=== PATIENT | female | born 1975 | race Caucasian/White ===

== ENCOUNTER 2019-04-27 08:06 | Emergency (ER) | payer OTHER, SELFPAY ==
--- NOTE | 2019-04-27 09:01 | ER ---
Nurse's Notes [facility] [place] Name: Mitali Law Age: 43 yrs Sex: Female : 1975 Arrival Date: 04/27/2019 Time: 08:10 Bed 17 Private MD: Diagnosis: Acute pharyngitis Presentation: 04/27 08:21 Presenting complaint: Patient states: throat hurts, can't swallow, X 3 days. Transition iw of care: patient was not received from another setting of care. Onset of symptoms was April 24, 2019. Risk Assessment: Do you want to hurt yourself or someone else? Patient reports no desire to harm self or others. Initial Sepsis Screen: Does the patient meet any 2 criteria? No. Patient's initial sepsis screen is negative. Does the patient have a suspected source of infection? No. Patient's initial sepsis screen is negative. Care prior to arrival: None. 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 - Social history:: Smoking status: Patient/guardian denies using tobacco. - Ebola Screening: : Patient negative for fever greater than or equal to 101.5 degrees Fahrenheit, and additional compatible Ebola Virus Disease symptoms Patient denies exposure to infectious person Patient denies travel to an Ebola-affected area in the 21 days before illness onset No symptoms or risks identified at this time. Screenin:40 Abuse screen: Denies threats or abuse. Nutritional screening: No deficits noted. em Tuberculosis screening: No symptoms or risk factors identified. Fall Risk None identified. Assessment: 08:41 General: Appears in no apparent distress. comfortable, Behavior is calm, cooperative. em Pain: Complains of pain in left aspect of posterior pharynx and right aspect of posterior pharynx Pain currently is 8 out of 10 on a pain scale. Pain began 2-3 days ago. Neuro: Level of Consciousness is awake, alert, obeys commands, Oriented to person, place, time, situation, Appropriate for age. Cardiovascular: Capillary refill < 3 seconds Patient's skin is warm and dry. Respiratory: Airway is patent Respiratory effort is even, unlabored, Respiratory pattern is regular, symmetrical, Breath sounds are clear bilaterally. GI: Patient currently denies nausea, vomiting. EENT: Throat is reddened has enlarged tonsils bilaterally Reports difficulty swallowing pain when swallowing. Derm: Skin is intact, is healthy with good turgor, Skin is pink, warm \T\ dry. Musculoskeletal: Capillary refill < 3 seconds, Range of motion: intact in all extremities. Vital Signs: 08:22 BP 119 / 64; Pulse 77; Resp 16 S; Temp 98.0; Pulse Ox 100% on R/A; Weight 61.23 kg; iw Height 5 ft. 3 in. (160.02 cm); Pain 8/10; 08:22 Body Mass Index 23.91 (61.23 kg, 160.02 cm) iw ED Course: 08:10 Patient arrived in ED. as 08:15 Cain Marte PA is PHCP. [facility] 08:15 Alfie Orozco MD is Attending Physician. [facility] 08:22 Triage completed. iw 08:22 Arm band placed on. iw 08:27 Haider Davis LVN is Primary Nurse. em 08:40 Patient has correct armband on for positive identification. Bed in low position. Call em light in reach. 09:16 No provider procedures requiring assistance completed. Patient did not have IV access em during this emergency room visit. Administered Medications: 09:11 Drug: Decadron 10 mg Route: IM; Site: right deltoid; em 09:16 Follow up: Response: Medication administered at discharge. em Outcome: 09:00 Discharge ordered by . [facility] 09:16 Discharged to home ambulatory. em 09:16 Condition: good 09:16 Discharge instructions given to patient, Instructed on discharge instructions, follow up and referral plans. medication usage, Demonstrated understanding of instructions, follow-up care, medications, Prescriptions given X 1. 09:17 Patient left the ED. em Signatures: Cain Marte PA PA jmm Munoz, Edgar, RN RN em Kira Puri Irene, RN RN
--- NOTE | 2019-04-27 09:02 | EDPHYS ---
Physician Documentation [facility] Name: Mitali Law Age: 43 yrs Sex: Female : 1975 Arrival Date: 04/27/2019 Time: 08:10 Bed 17 Private MD: ED Physician Alfei Orozco HPI: 04/27 08:48 This 43 yrs old Female presents to ER via Ambulatory with complaints of Sore jmm Throat. 08:48 The patient presents with sore throat. Onset: The symptoms/episode began/occurred jmm gradually, 3 day(s) ago. Modifying factors: The symptoms are alleviated by nothing, the symptoms are aggravated by nothing. Associated signs and symptoms: Pertinent negatives cough, earache. This is a 43 year old female that presents to the ED with complaints of of sore throat beginning 3 days ago. Denies cough. Patient complains of a swelling sensation to the throat which worsened this morning. . 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 - Social history:: Smoking status: Patient/guardian denies using tobacco. - Ebola Screening: : Patient negative for fever greater than or equal to 101.5 degrees Fahrenheit, and additional compatible Ebola Virus Disease symptoms Patient denies exposure to infectious person Patient denies travel to an Ebola-affected area in the 21 days before illness onset No symptoms or risks identified at this time. ROS: 08:48 Constitutional: Negative for fever, chills, and weight loss, Cardiovascular: Negative jmm for chest pain, palpitations, and edema, Respiratory: Negative for shortness of breath, cough, wheezing, and pleuritic chest pain. 08:48 ENT: Positive for sore throat. 08:48 Neuro: Negative for headache. 08:48 All other systems are negative. Exam: 08:48 Constitutional: This is a well developed, well nourished patient who is awake, alert, jmm and in no acute distress. Head/Face: atraumatic. Eyes: EOMI, no conjunctival erythema appreciated ENT: Moist Mucus Membranes Neck: Trachea midline, Supple Chest/axilla: Normal chest wall appearance and motion. Cardiovascular: Regular rate and rhythm. No edema appreciated Respiratory: Normal respirations, no respiratory distress appreciated Abdomen/GI: Non distended, soft Back: Normal ROM Skin: General appearance color normal MS/ Extremity: Moves all extremities, no obvious deformities appreciated, no edema noted to the lower extremities Neuro: Awake and alert, normal gait Psych: Behavior is normal, Mood is normal, Patient is cooperative and pleasant 08:48 ENT: TM's: erythema, that is mild, on the right, Posterior pharynx: Airway: normal, Uvula: midline, erythema, that is moderate, exudate, is not appreciated. Vital Signs: 08:22 BP 119 / 64; Pulse 77; Resp 16 S; Temp 98.0; Pulse Ox 100% on R/A; Weight 61.23 kg; iw Height 5 ft. 3 in. (160.02 cm); Pain 8/10; 08:22 Body Mass Index 23.91 (61.23 kg, 160.02 cm) iw MDM: 08:46 Patient medically screened. [facility] 08:59 Data reviewed: vital signs, nurses notes. Counseling: I had a detailed discussion with [facility] the patient and/or guardian regarding: the historical points, exam findings, and any diagnostic results supporting the discharge/admit diagnosis, the need for outpatient follow up, to return to the emergency department if symptoms worsen or persist or if there are any questions or concerns that arise at home. ED course: Patient is alert and non toxic in appearance in the ED. No signs of BACKER UP on PE. Patient advised to return to the ED if symptoms worsen. Patient understood and agrees with the plan of care. . 04/27 08:47 Order name: Strep; Complete Time: 09:09 [facility] 04/27 09:14 Order name: Throat Culture EDMS Administered Medications: 09:11 Drug: Decadron 10 mg Route: IM; Site: right deltoid; em 09:16 Follow up: Response: Medication administered at discharge. em Disposition: 10:46 Co-signature as Attending Physician, Alfie Orozco MD I agree with the assessment and kdr plan of care. Disposition: 04/27/19 09:00 Discharged to Home. Impression: Acute pharyngitis. - Condition is Stable. - Discharge Instructions: Pharyngitis. - Prescriptions for Amoxicillin 875 mg Oral Tablet - take 1 tablet by ORAL route every 12 hours for 10 days; 20 tablet. - Medication Reconciliation Form, Thank You Letter, Antibiotic Education, Prescription Opioid Use form. - Follow up: Private Physician; When: 2 - 3 days; Reason: Recheck today's complaints, Continuance of care, Re-evaluation by your physician. Signatures: Dispatcher [employer] EDAlfie Huizar MD MD kdr Mickail, Joel, PA PA jmm Munoz, Edgar, RN RN em Holly Guardado RN RN iw Corrections: (The following items were deleted from the chart) 09:17 09:00 04/27/2019 09:00 Discharged to Home. Impression: Acute pharyngitis. Condition is em Stable. Forms are Medication Reconciliation Form, Thank You Letter, Antibiotic Education, Prescription Opioid Use. Follow up: Private Physician; When: 2 - 3 days; Reason: Recheck today's complaints, Continuance of care, Re-evaluation by your physician. gary
[2019-04-27] MEDS ORDERED: dexAMETHasone 10 MG/ML VIAL ONE (09:04)
[2019-04-27 09:25] VITALS: BP 119/64; TEMP 98; O2SAT 100
== END 2019-04-27 09:17 | disposition home or self-care (01) ==
LOC: ER 08:06
DX: J02.9 Acute pharyngitis, unspecified (principal); Z88.2 Allergy status to sulfonamides
CPT/HCPCS: 87070; 87081; 96372; 99283; J1100

== ENCOUNTER 2019-08-26 07:17 | Emergency (ER) | payer OTHER ==
--- NOTE | 2019-08-26 08:31 | ER ---
Nurse's Notes [facility] [place] Name: Mitali Law Age: 43 yrs Sex: Female : 1975 Arrival Date: 08/26/2019 Time: 07:20 Bed 5 Private MD: Diagnosis: Acute pharyngitis due to other specified organisms Presentation: 08/25 07:39 Chief complaint: Patient states: sore throat X 1 week, vomited X 2 nights ago, no iw fever, mild cough. Coronavirus screen: Proceed with normal triage. Patient denies a cough. Patient denies shortness of breath or difficulty breathing. Patient denies measured and/or subjective temperature greater than 100.4F prior to today's visit. Patient denies travel on a cruise ship or to a country the [facility] currently lists as an affected area. Patient denies contact with known and/or suspected case of COVID-19. Ebola Screen: Patient negative for fever greater than or equal to 101.5 degrees Fahrenheit, and additional compatible Ebola Virus Disease symptoms Patient denies exposure to infectious person. Patient denies travel to an Ebola-affected area in the 21 days before illness onset. No symptoms or risks identified at this time. Initial Sepsis Screen: Does the patient meet any 2 criteria? No. Patient's initial sepsis screen is negative. Does the patient have a suspected source of infection? No. Patient's initial sepsis screen is negative. Risk Assessment: Do you want to hurt yourself or someone else? Patient reports no desire to harm self or others. Onset of symptoms was August 20, 2019. 07:39 Method Of Arrival: Ambulatory iw 07:39 Acuity: JAIR 4 iw Triage Assessment: 07:41 General: Appears in no apparent distress. comfortable, Behavior is cooperative, bp appropriate for age, anxious. Pain: Complains of pain in THROAT. EENT: No deficits noted. Neuro: No deficits noted. Cardiovascular: No deficits noted. Respiratory: No deficits noted. GI: Reports vomiting. : No signs and/or symptoms were reported regarding the genitourinary system. Derm: No deficits noted. Musculoskeletal: No deficits noted. Historical: - Allergies: 07:41 Sulfa (Sulfonamide Antibiotics) (Hives); iw - Home Meds: 07:41 Methadone Oral [Active]; iw - PMHx: 07:41 HPV; iw - PSHx: 07:41 ; iw - Immunization history:: Adult Immunizations not up to date. - Social history:: Smoking status: Patient denies any tobacco usage or history of. Screenin:38 Abuse screen: Denies threats or abuse. Denies injuries from another. Nutritional bp screening: No deficits noted. Tuberculosis screening: No symptoms or risk factors identified. Fall Risk None identified. Assessment: 07:38 General: SEE TRIAGE NOTE. Pain: Complains of pain in THROAT. Respiratory: Airway is bp patent Respiratory effort is even, unlabored, Breath sounds are clear bilaterally. EENT: Throat is clear. 08:37 Reassessment: PT D/C HOME AMBULATORY, DX WITH ACUTE PHARYNGITIS. bp Vital Signs: 07:39 BP 130 / 94; Pulse 90; Resp 16; Temp 97.9; Pulse Ox 100% on R/A; Weight 65.77 kg; iw Height 5 ft. 3 in. (160.02 cm); 08:37 BP 109 / 77; Pulse 59; Resp 17; Temp 98; Pulse Ox 98% ; bp 07:39 Body Mass Index 25.69 (65.77 kg, 160.02 cm) ED Course: 07:20 Patient arrived in ED. ag5 07:28 Nicholas Ceballos, RN is Primary Nurse. bp 07:29 Gonzalo Gonsales PA is PHCP. jr8 07:29 Alfie Orozco MD is Attending Physician. jr8 07:38 Patient has correct armband on for positive identification. Bed in low position. Call bp light in reach. Side rails up X2. 07:41 Triage completed. iw 08:38 No provider procedures requiring assistance completed. Patient did not have IV access bp during this emergency room visit. Administered Medications: No medications were administered Outcome: 08:30 Discharge ordered by . jr8 08:38 Discharged to home ambulatory. bp 08:38 Condition: stable 08:38 Discharge instructions given to patient, Instructed on discharge instructions, follow up and referral plans. medication usage, Demonstrated understanding of instructions, follow-up care, medications, Prescriptions given X 2. 08:39 Patient left the ED. bp Signatures: Holly Guardado RN RN Gonzalo Gonsales PA PA jr8 Nicholas Ceballos RN RN bp Uday Christine ag5
--- NOTE | 2019-08-26 08:31 | EDPHYS ---
Physician Documentation [facility] Name: Mitali Law Age: 43 yrs Sex: Female : 1975 Arrival Date: 08/26/2019 Time: 07:20 Bed 5 Private MD: ED Physician Alfie Orozco HPI: 08/25 08:04 This 43 yrs old Female presents to ER via Ambulatory with complaints of Sore jr8 Throat, Vomiting. 08:04 The patient presents with sore throat. The patient describes throat pain as constant. jr8 Onset: The symptoms/episode began/occurred acutely, yesterday. Severity of symptoms: At their worst the symptoms were moderate, in the emergency department the symptoms are unchanged. Modifying factors: The symptoms are alleviated by nothing, the symptoms are aggravated by nothing, Patient's oral intake status: unable to tolerate foods. Associated signs and symptoms: Pertinent positives: nausea, vomiting. The patient has not experienced similar symptoms in the past. The patient has not recently seen a physician. Historical: - Allergies: 07:41 Sulfa (Sulfonamide Antibiotics) (Hives); iw - Home Meds: 07:41 Methadone Oral [Active]; iw - PMHx: 07:41 HPV; iw - PSHx: 07:41 ; iw - Immunization history:: Adult Immunizations not up to date. - Social history:: Smoking status: Patient denies any tobacco usage or history of. ROS: 08:04 Eyes: Negative for injury, pain, redness, and discharge, Neck: Negative for injury, jr8 pain, and swelling, Cardiovascular: Negative for chest pain, palpitations, and edema, Respiratory: Negative for shortness of breath, cough, wheezing, and pleuritic chest pain, Back: Negative for injury and pain, MS/Extremity: Negative for injury and deformity, Skin: Negative for injury, rash, and discoloration, Neuro: Negative for headache, weakness, numbness, tingling, and seizure. 08:04 ENT: Positive for sore throat. 08:04 Abdomen/GI: Positive for nausea and vomiting, Negative for abdominal pain, diarrhea, constipation, abdominal cramps, abdominal distension. Exam: 08:04 Eyes: Pupils equal round and reactive to light, extra-ocular motions intact. Lids and jr8 lashes normal. Conjunctiva and sclera are non-icteric and not injected. Cornea within normal limits. Periorbital areas with no swelling, redness, or edema. ENT: Nares patent. No nasal discharge, no septal abnormalities noted. Tympanic membranes are normal and external auditory canals are clear. Oropharynx with redness. No swelling, or masses, exudates, or evidence of obstruction, uvula midline. Mucous membranes moist. Neck: Trachea midline, no thyromegaly or masses palpated, and no cervical lymphadenopathy. Supple, full range of motion without nuchal rigidity, or vertebral point tenderness. No Meningismus. Cardiovascular: Regular rate and rhythm with a normal S1 and S2. No gallops, murmurs, or rubs. Normal PMI, no JVD. No pulse deficits. Respiratory: Lungs have equal breath sounds bilaterally, clear to auscultation and percussion. No rales, rhonchi or wheezes noted. No increased work of breathing, no retractions or nasal flaring. Abdomen/GI: Soft, non-tender, with normal bowel sounds. No distension or tympany. No guarding or rebound. No evidence of tenderness throughout. Back: No spinal tenderness. No costovertebral tenderness. Full range of motion. Skin: Warm, dry with normal turgor. Normal color with no rashes, no lesions, and no evidence of cellulitis. MS/ Extremity: Pulses equal, no cyanosis. Neurovascular intact. Full, normal range of motion. Neuro: Awake and alert, GCS 15, oriented to person, place, time, and situation. Cranial nerves II-XII grossly intact. Motor strength 5/5 in all extremities. Sensory grossly intact. Cerebellar exam normal. Normal gait. Vital Signs: 07:39 BP 130 / 94; Pulse 90; Resp 16; Temp 97.9; Pulse Ox 100% on R/A; Weight 65.77 kg; iw Height 5 ft. 3 in. (160.02 cm); 08:37 BP 109 / 77; Pulse 59; Resp 17; Temp 98; Pulse Ox 98% ; bp 07:39 Body Mass Index 25.69 (65.77 kg, 160.02 cm) iw MDM: 07:40 Patient medically screened. [facility] 08:04 Data reviewed: vital signs, nurses notes, lab test result(s), and as a result, I will jr8 discharge patient. Data interpreted: Pulse oximetry: on room air is 100 %. Interpretation: normal. Counseling: I had a detailed discussion with the patient and/or guardian regarding: the historical points, exam findings, and any diagnostic results supporting the discharge/admit diagnosis, lab results, the need for outpatient follow up, a family practitioner, to return to the emergency department if symptoms worsen or persist or if there are any questions or concerns that arise at home. 08/25 07:48 Order name: Strep; Complete Time: 08:30 jr8 Administered Medications: No medications were administered Disposition: 11:14 Co-signature as Attending Physician, Alfie Orozco MD I agree with the assessment and kdr plan of care. Disposition: 08/26/19 08:30 Discharged to Home. Impression: Acute pharyngitis due to other specified organisms. - Condition is Stable. - Discharge Instructions: Pharyngitis. - Prescriptions for Amoxicillin 875 mg Oral Tablet - take 1 tablet by ORAL route every 12 hours for 10 days; 20 tablet. Zofran 4 mg Oral Tablet - take 1 tablet by ORAL route every 12 hours As needed; 20 tablet. - Medication Reconciliation Form, Thank You Letter, Antibiotic Education, Prescription Opioid Use form. - Follow up: Private Physician; When: As needed; Reason: Recheck today's complaints, Continuance of care, Re-evaluation by your physician. - Problem is new. - Symptoms have improved. Signatures: Dispatcher [employer] EDMS Alfie Orozco MD MD [facility] Holly Guardado RN RN iw Gonzalo Gonsales PA PA jr8 Nicholas Ceballos RN RN bp Corrections: (The following items were deleted from the chart) 08:39 08:30 08/26/2019 08:30 Discharged to Home. Impression: Acute pharyngitis due to other bp specified organisms. Condition is Stable. Forms are Medication Reconciliation Form, Thank You Letter, Antibiotic Education, Prescription Opioid Use. Follow up: Private Physician; When: As needed; Reason: Recheck today's complaints, Continuance of care, Re-evaluation by your physician. Problem is new. Symptoms have improved. jr8
== END 2019-08-26 08:39 | disposition home or self-care (01) ==
LOC: ER 07:17
DX: J02.8 Acute pharyngitis due to other specified organisms (principal); Z88.2 Allergy status to sulfonamides
CPT/HCPCS: 87070; 87081; 99282

== ENCOUNTER 2019-09-22 08:23 | Emergency (ER) | payer OTHER ==
[2019-09-22] MEDS ORDERED: KETOROLAC 30 MG/ML INJ ONE (09:00)
--- NOTE | 2019-09-22 09:32 | RAD REPORT ---
EXAM DESCRIPTION: RAD - Shoulder Left 2 View - 09/22/2019 9:23 am CLINICAL HISTORY: Left shoulder pain FINDINGS: No fracture or dislocation is seen. No bone or joint abnormality noted
--- NOTE | 2019-09-22 09:51 | ER ---
Nurse's Notes [facility] Name: Mitali Law Age: 43 yrs Sex: Female : 1975 Arrival Date: 09/22/2019 Time: 08:25 Bed 5 Private MD: Diagnosis: Pain in left shoulder Presentation: 09/21 08:33 Chief complaint: Patient states: left shoulder pain x 2 days ago. Pt states "I thought aa5 I just slept on it wrong but it's hurting too bad". Pt states "I took 2 tramadol this morning and it's not helping". Pt also reports she takes methadone but has not taking it this morning. 08:33 Coronavirus screen: Proceed with normal triage. Patient denies a cough. Patient denies aa5 shortness of breath or difficulty breathing. Patient denies measured and/or subjective temperature greater than 100.4F prior to today's visit. Patient denies travel on a cruise ship or to a country the [facility] currently lists as an affected area. Patient denies contact with known and/or suspected case of COVID-19. Ebola Screen: Patient negative for fever greater than or equal to 101.5 degrees Fahrenheit, and additional compatible Ebola Virus Disease symptoms. Initial Sepsis Screen: Does the patient meet any 2 criteria? No. Patient's initial sepsis screen is negative. Does the patient have a suspected source of infection? No. Patient's initial sepsis screen is negative. Risk Assessment: Do you want to hurt yourself or someone else? Patient reports no desire to harm self or others. Onset of symptoms was 2019. 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 - Social history:: Smoking status: Patient denies any tobacco usage or history of. Screenin:58 Abuse screen: Denies threats or abuse. Denies injuries from another. Nutritional jl7 screening: No deficits noted. Tuberculosis screening: No symptoms or risk factors identified. Fall Risk None identified. Assessment: 08:58 General: Appears in no apparent distress. uncomfortable, Behavior is calm, cooperative, jl7 appropriate for age. Pain: Complains of pain in anterior aspect of left shoulder Pain does not radiate. Pain currently is 7 out of 10 on a pain scale. at worst was 10 out of 10 on a pain scale. Pain began 2-3 days ago. Is continuous, episodic. Neuro: Level of Consciousness is awake, alert, obeys commands, Oriented to person, place, time, situation. Cardiovascular: Patient's skin is warm and dry. Respiratory: Airway is patent Respiratory effort is even, unlabored, Respiratory pattern is regular, symmetrical. Derm: Skin is pink, warm \\T\\ dry. Musculoskeletal: Range of motion: limited in left shoulder. 10:00 Reassessment: Patient appears in no apparent distress at this time. Patient and/or jl7 family updated on plan of care and expected duration. Pain level reassessed. Patient is alert, oriented x 3, equal unlabored respirations, skin warm/dry/pink. reports decreased pain. Vital Signs: 08:33 BP 130 / 85; Pulse 88; Resp 18; Temp 97.8(TE); Pulse Ox 100% on R/A; Weight 63.5 kg aa5 (R); Height 5 ft. 3 in. (160.02 cm) (R); Pain 7/10; 09:43 BP 107 / 78; Pulse 87; Resp 17; Pulse Ox 97% on R/A; tw2 08:33 Body Mass Index 24.80 (63.50 kg, 160.02 cm) aa5 ED Course: 08:25 Patient arrived in ED. ag5 08:33 Sophia Hudson, GIORGIO is Primary Nurse. jl7 08:33 Arm band placed on. aa5 08:37 Cain Marte PA is PHCP. [facility] 08:38 Alfie Orozco MD is Attending Physician. jm 08:45 Triage completed. aa5 08:58 Patient has correct armband on for positive identification. Placed in gown. Bed in low jl7 position. Call light in reach. Side rails up X 1. Pulse ox on. NIBP on. 09:23 Shoulder Left (2 View) XRAY In Process Unspecified. EDMS 09:50 Jose Soto MD is Referral Physician. [facility] 10:00 No provider procedures requiring assistance completed. Patient did not have IV access jl7 during this emergency room visit. Administered Medications: 08:58 Drug: Ketorolac 30 mg Route: IM; Site: right deltoid; jl7 09:25 Follow up: Response: No adverse reaction; Pain is decreased jl7 Outcome: 09:50 Discharge ordered by . jm 10:23 Discharged to home ambulatory. jl7 10:23 Condition: stable 10:23 Discharge instructions given to patient, Instructed on discharge instructions, follow up and referral plans. medication usage, Demonstrated understanding of instructions, follow-up care, medications, Prescriptions given X 2. 10:24 Patient left the ED. jl7 Signatures: Dispatcher [employer] EDMS Cain Marte PA PA jmm Calderon, Audri, RN RN aa5 Theodora Blandon RN RN tw2 Sophia Hudson RN RN jl7 Uday Christine [facility]
--- NOTE | 2019-09-22 09:51 | EDPHYS ---
Physician Documentation [facility] Name: Mitali Law Age: 43 yrs Sex: Female : 1975 Arrival Date: 09/22/2019 Time: 08:25 Bed 5 Private MD: ED Physician Alfie Orozco HPI: 09/21 08:40 This 43 yrs old Female presents to ER via Ambulatory with complaints of jmm Shoulder Pain. 08:40 The patient or guardian complains of pain. Onset: The symptoms/episode began/occurred jmm gradually. 09:33 Onset: The symptoms/episode began/occurred 2 day(s) ago. jmm 09:33 Associated signs and symptoms: Pertinent negatives: chest pain, shortness of breath. jmm This is a 43 year old female that presents to the ED with complaints of left shoulder pain beginning 2 days ago. Patient states pain was upon awakening. . 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 - Social history:: Smoking status: Patient denies any tobacco usage or history of. ROS: 09:33 Constitutional: Negative for fever, chills, and weight loss, Cardiovascular: Negative jmm for chest pain, palpitations, and edema, Respiratory: Negative for shortness of breath, cough, wheezing, and pleuritic chest pain, Abdomen/GI: Negative for abdominal pain, nausea, vomiting, diarrhea, and constipation. 09:33 MS/extremity: Positive for pain. 09:33 All other systems are negative. Exam: 09:33 Constitutional: This is a well developed, well nourished patient who is awake, alert, jmm and in no acute distress. Head/Face: atraumatic. Eyes: EOMI, no conjunctival erythema appreciated ENT: Moist Mucus Membranes Neck: Trachea midline, Supple Chest/axilla: Normal chest wall appearance and motion. Cardiovascular: Regular rate and rhythm. No edema appreciated Respiratory: Normal respirations, no respiratory distress appreciated Abdomen/GI: Non distended, soft Back: Normal ROM Skin: General appearance color normal 09:33 Musculoskeletal/extremity: ant shoulder pain on palpation, painful abduction, full risk control analyst strength, compartments are soft, NVI. 09:33 Skin: Appearance: Color: normal in color. 09:33 Neuro: Orientation: is normal, Mentation: is normal, Memory: is normal. 09:33 Psych: Behavior/mood is pleasant, cooperative. Vital Signs: 08:33 BP 130 / 85; Pulse 88; Resp 18; Temp 97.8(TE); Pulse Ox 100% on R/A; Weight 63.5 kg aa5 (R); Height 5 ft. 3 in. (160.02 cm) (R); Pain 7/10; 09:43 BP 107 / 78; Pulse 87; Resp 17; Pulse Ox 97% on R/A; tw2 08:33 Body Mass Index 24.80 (63.50 kg, 160.02 cm) aa5 MDM: 08:40 Patient medically screened. [facility] 09:49 Data reviewed: vital signs, nurses notes. Counseling: I had a detailed discussion with gary the patient and/or guardian regarding: the historical points, exam findings, and any diagnostic results supporting the discharge/admit diagnosis, radiology results, the need for outpatient follow up, to return to the emergency department if symptoms worsen or persist or if there are any questions or concerns that arise at home. ED course: Patient advised to follow up with ortho for reevaluation. patient otherwise given strict return precautions. patient understood and agrees with the plan of care. . 09/21 08:47 Order name: Shoulder Left (2 View) XRAY; Complete Time: 09:39 [facility] Administered Medications: 08:58 Drug: Ketorolac 30 mg Route: IM; Site: right deltoid; jl7 09:25 Follow up: Response: No adverse reaction; Pain is decreased jl7 Disposition: 13:30 Co-signature as Attending Physician, Alfie Orozco MD I agree with the assessment and kdr plan of care. Disposition: 09/22/19 09:50 Discharged to Home. Impression: Pain in left shoulder. - Condition is Stable. - Discharge Instructions: Shoulder Pain. - Prescriptions for Medrol (Raymundo) 4 mg Oral Tablets, Dose Pack - take 1 tablet by ORAL route as directed - follow package instructions; 1 packet. orphenadrine citrate 100 mg Oral Tablet Sustained Release - take 1 tablet by ORAL route 2 times per day As needed; 20 tablet. - Medication Reconciliation Form, Thank You Letter, Antibiotic Education, Prescription Opioid Use form. - Follow up: Jose Soto MD; When: 2 - 3 days; Reason: Recheck today's complaints, Continuance of care, Re-evaluation by your physician. Signatures: Dispatcher [employer] EDMS Alfie Orozco MD MD kdr Mickail, Joel, PA PA jmm Calderon, Audri, RN RN aa5 Sophia Hudson RN RN jl7 Corrections: (The following items were deleted from the chart) 10:24 09:50 09/22/2019 09:50 Discharged to Home. Impression: Pain in left shoulder. Condition jl7 is Stable. Forms are Medication Reconciliation Form, Thank You Letter, Antibiotic Education, Prescription Opioid Use. Follow up: Dr. Jose Soto; When: 2 - 3 days; Reason: Recheck today's complaints, Continuance of care, Re-evaluation by your physician. gary
[2019-09-22 10:31] VITALS: BP 107/78; TEMP 97.8; O2SAT 97
== END 2019-09-22 10:24 | disposition home or self-care (01) ==
LOC: ER 08:23
DX: M25.512 Pain in left shoulder (principal); Z88.2 Allergy status to sulfonamides
CPT/HCPCS: 96372; 99284

== ENCOUNTER 2022-05-30 13:18 | Emergency (ER) | payer OTHER, SELFPAY ==
--- OUTSIDE RECORDS SUMMARY | 2022-05-30 13:22 | XMS REPORT | Continuity of Care Document ---
:1975 Author Organization [facility] t Address [address] [place] [address] Care Team Providers Name Role Phone MARCELINA WILLSON Primary Care Physician Unavailable MARCELINA WILLSON Attending Clinician Unavailable QUETA BLAIR Attending Clinician Unavailable Lab, Ang-Rmchp Attending Clinician Unavailable Johnnie PEDIATRIC ASSISTANTQueta Attending Clinician Anamika [facility] AL[facility] Attending Clinician [phone] Doctor Unassigned, [place] Attending Clinician Unavailable Pgy3 Attending Clinician Unavailable Hortencia Ludwig MD Attending Clinician HORTENCIA LUDWIG Attending Clinician Unavailable Elodia Aguillon RN Attending Clinician Unavailable TODD SERRATO Attending Clinician Unavailable Only, Ang Db Test Attending Clinician Unavailable Todd Serrato MD Attending Clinician MERCEDEZ LIU Attending Clinician Unavailable MARCELINA WILLSON Admitting Clinician Unavailable Payers Payer Name Policy Type Policy Number Effective Date Expiration Date Corbin lopez [id number] 2016 00:00:00 [facility] [id number] 2021 CHOICE 00:00:00 Problems Condition Condition Condition Status Onset Resolution Last Treating Co mments Source Name Details Category Date Date Treatment Clinician Date Heavy Heavy Disease Active Overview: Univer s menses menses 1-12 Formattin ity of 00:00: g of this [place] 00 note Medical might be Branch different from the original. Records received, see scanned records Pre-op dx- excessive and frequent menstruat ion with irregular cyclePost -op dx- not statedDia gnosis: Prolifera tive endometri umNo evidence of hyperplas ia or malignanc y Elevated Elevated Disease Active Unive rs blood blood 1-12 ity of pressure pressure 00:00: [place] reading reading 00 Medical without without Branch diagnosis diagnosis of of hypertensi hypertensi on on Other Other Disease Active Univers general general 1-13 [place] of counseling [place] and advice and advice 00 Dc dical for for Branch contracept contracept shahla shahla management management Over Over Disease Active Univers weight weight 1-13 ity of 00:00: [place] 00 Medical Branch Vaginal Vaginal Disease Active Univers discharge discharge 1-13 ity of 00:00: [place] 00 Medical Branch Encounter Encounter Disease Active Uni vers for for 6-20 ity of screening screening 00:00: Rojelio moya mammogram mammogram 00 [facility] zachery for breast for breast Br anch cancer cancer Urinary Urinary Disease Active Univers tract tract 6-20 [place] of infection, [place], [place] 00 Medical unspecifie unspecifie Br anch d d Tobacco Tobacco Disease Active Univers use use 6-20 ity of disorder disorder 00:00: [place] 00 Medical Branch Depression Depression Disease Active U nivers , , 6-20 ity of unspecifie unspecifie [place] d [place] 00 Medical depression depression Br anch type type History of History of Disease Active U nivers tubal tubal 6-20 ity of ligation ligation 00:00: [place] 00 Medical Branch Allergies, Adverse Reactions, Alerts Allergy Allergy Status Severity Reaction(s) Onset Inactive Treating Comm ents Source Name Type Date Date Clinician ZIPRASID DRUG Active Hallucinates 2011-04 Un myrna ONE HCL INGREDI 0-03 ity of 00:00: [place] 00 Medical Branch Ziprasid Propensi Active Hallucinatio 2011-04 Univers one Hcl ty to ns 0-03 ity of adverse 00:00: [place] reaction 00 Medical s Branch Sulfa Propensi Active Itching Univers (Sulfona ty to 906 ity of mide adverse 00:00: [place] Antibiot reaction 00 Medica l ics) s Branch SULFA Drug Active ITCHING Univers (SULFONA Class 9-06 ity of MIDE 00:00: [place] ANTIBIOT 00 Medical ICS) Branch Social History Social Habit Start Date Stop Date Quantity Comments Source History of Cigarette Smoker Universi ty of tobacco use [facility] Exposure to 2021-11-24 2021-12-04 Not sure University SARS-CoV-2 00:00:00 15:53:00 [facility] (event) Branch Tobacco use and 2021-12-04 2021-12-04 Smokeless tobacco Un iversity of exposure 00:00:00 00:00:00 non-user [place] [facility] Alcohol intake 2021-12-04 2021-12-04 Current University of 00:00:00 00:00:00 non-drinker of [facility] alcohol (finding) Branch Tobacco Comment 2021-12-04 2021-12-04 smokes 2 x per Unive rsity of 00:00:00 00:00:00 day [place] [facility] Sex [birth year] Universit y of 00:00:00 00:00:00 [place] [facility] Smoking Status Start Date Stop Date Source Ex-smoker 2021-12-04 00:00:00 2021-12-04 00:00:00 Universi ty of [place] [facility] Medications Ordered Filled Start Stop Current Ordering Indication Dosage Frequency Signature Comments Components Source Medication Medication Date Date Medication? Clinician (SIG) Name Name Yes Take by [facility] 105-iron-fo 7-05 mouth. ity of lic ac-dha 13:52: [place] 30 mg iron- 46 Medical 1.4 mg-300 Branch mg Cmpk Yes Take by [facility] 105-iron-fo 7-05 mouth. ity of lic ac-dha 13:52: [place] 30 mg iron- 46 Medical 1.4 mg-300 Branch mg Cmpk Yes Take by [facility] 105-iron-fo 7-05 mouth. ity of lic ac-dha 13:52: [place] 30 mg iron- 46 Medical 1.4 mg-300 Branch mg Cmpk Nitrofurant Yes [id number] 100mg Take 1 Univers oin&Nit. 7-05 capsule by ity o f Macrocryst 00:00[place] (MACROBID[place] 00 (two) Medical 100 mg times Branch capsule daily. Nitrofurant Yes [id number] 100mg Take 1 Univers oin&Nit. 7-05 capsule by ity o f Macrocryst 00:[place]: [place] (MACROBID) 00 (two) Medical 100 mg times Branch capsule daily. Nitrofurant Yes [id number] 100mg Take 1 Univers oin&Nit. 7-05 capsule by ity o f Macrocryst 00:[place] (MACROBID[place] 00 (two) Medical 100 mg times Branch capsule daily. ferrous Yes [id number] 325mg Take 1 Un myrna sulfate 325 2-07 tablet by ity of mg (65 mg 00:00: mouth 2 [place] iron) 00 (two) Medical tablet times Branch daily. norethindro Yes [id number] 1{tbl} Take 1 Univers ne 0.35 mg 2-07 tablet by ity of tablet 00:00: mouth [place] 00 daily. Medical Branch ferrous Yes [id number] 325mg Take 1 Un myrna sulfate 325 2-07 tablet by ity of mg (65 mg 00:00: mouth 2 [place] iron) 00 (two) Medical tablet times Branch daily. norethindro Yes [id number] 1{tbl} Take 1 Univers ne 0.35 mg 2-07 tablet by ity of tablet 00:00: mouth [place] 00 daily. Medical Branch ferrous Yes [id number] 325mg Take 1 Un myrna sulfate 325 2-07 tablet by ity of mg (65 mg 00:00: mouth 2 [place] iron) 00 (two) Medical tablet times Branch daily. norethindro Yes [id number] 1{tbl} Take 1 Univers ne 0.35 mg 2-07 tablet by ity of tablet 00:00: mouth [place] 00 daily. Medical Branch Norethindro Yes [id number] 1{tbl} Take 1 Univers ne 3-09 tablet by ity of Acet-Ethiny 00:00: mouth [place] l Est 00 daily. Medical (LOESTRIN Branch .09/17, ,) 1.5-30 mg-mcg per tablet Norethindro 2020-0 Yes [id number] 1{tbl} Take 1 Univers ne 3-09 tablet by ity of Acet-Ethiny 00:00: mouth [place] l Est 00 daily. Medical (LOESTRIN Branch .09/17, ,) 1.5-30 mg-mcg per tablet Norethindro 2020-0 Yes [id number] 1{tbl} Take 1 Univers ne 3-09 tablet by ity of Acet-Ethiny 00:00: mouth [place] l Est 00 daily. Medical (LOESTRIN Branch ,) 1.5-30 mg-mcg per tablet Immunizations Ordered Filled Immunization Date Status Comments Sourc e Immunization Name Name Td 2010-06-03 Completed University 00:00:00 [place] [facility] Td 2010-06-03 Completed University 00:00:00 [place] [facility] Td 2010-06-03 Completed [facility] 00:00:00 [place] [facility] Vital Signs Vital Name Observation Time Observation Value Comments Source Systolic blood 2021-12-04 20:55:00 135 mm[Hg] Univer sity of pressure [facility] Diastolic blood 2021-12-04 20:55:00 92 [facility]Hg[facility] 2021-12-04 20:55:00 86 /min [facility] Body temperature 2021-12-04 20:54:00 36.56 Lois [facility] Respiratory rate 2021-12-04 20:54:00 20 /min [facility] Body height 2021-12-04 20:54:00 160 cm [facility] Body weight 2021-12-04 20:54:00 84.567 kg [facility] BMI 2021-12-04 20:54:00 33.03 kg/m2 [facility] Procedures Procedure Date / Time Performed Performing Clinician [place] e POCT URINALYSIS W/O 2021-12-04 20:55:00 Marcelina Willson Uni versity [facility] Encounters Start End Encounter Admission Attending Care Care Encounter Source Date/Time Date/Time Type Type Clinicians Facility Department ID 2022-04-22 2022-04-22 Outpatient R CITLALIALVA [facility] [id number] Univers 13:15:00 13:15:00 MARCELINA wilkinson o [facility] 2021-12-05 2021-12-05 Outpatient R [facility] [id number] Univers 13:30:00 13:30:00 ity of [place] [facility] 2021-12-05 2021-12-05 Outpatient R JOHNNIE [facility] [id number] Univers 13:30:00 13:30:00 QUETA de lunamarshall o [facility] 2021-12-05 2021-12-05 Beauty Specialist Lab, [facility] [id number] Univers 13:30:00 13:30:00 Visit Queta Blair DIRECTOR SPECIALTY [id number] ity [facility] [id number] Santana as MATERNAL [id number] [facility] ical & CHILD [address] [place] [address] 2021-12-04 2021-12-04 Outpatient R JOHNNIE [facility] [id number] Univers 15:30:00 16:27:05 QUETA de lunamarshall christophe [facility] 2021-12-04 2021-12-04 Outpatient R JOHNNIE [facility] [id number] Univers 15:30:00 16:27:05 QUETA de lunamarshall o [facility] 2021-12-04 2021-12-04 [facility] [id number] Univers 15:30:00 16:27:05 Visit Ceciesther Infante DIRECTOR SPECIALTY [id number] ity of [facility] [id number] [place]ana as MATERNAL [phone] [facility] ical & CHILD [address] [place] [address] 2021-10-23 2021-10-23 Outpatient R ANAMIKA [facility] [id number] Univers 13:30:00 14:13:37 MARCELINA de lunamarshall o [facility] 2021-10-23 2021-10-23 Office [facility] [id number] Univers 13:30:00 14:13:37 Visit Marcelina C DIRECTOR SPECIALTY [id number] ity of [facility] [id number] [place] as MATERNAL [phone] [facility] [address] [place] [address] 2021-10-19 2021-10-19 Telephone [facility] [id number] Univers 00:00:00 00:00:00 Marcelina C DIRECTOR SPECIALTY [id number] ity of [facility] [id number] [place] as MATERNAL [phone] [facility] [address] [place] [address] 2021-10-01 2021-10-01 Outpatient R AKINSIPE, [facility] [id number] Univers 15:00:00 15:00:00 MARCELINA ity o [facility] 2021-10-01 2021-10-01 Outpatient R AKINSIPE, [facility] [id number] Univers 15:00:00 15:00:00 MARCELINA ity o [facility] 2021-10-01 2021-10-01 Outpatient R AKINSIPE, [facility] [id number] Univers 15:00:00 15:00:00 MARCELINA ity o f [place] [facility] 2021-10-01 2021-10-01 Outpatient R AKINSIPE, [facility] [id number] Univers 15:00:00 15:00:00 MARCELINA ity o [facility] 2021-08-10 2021-08-10 Telephone [facility] [id number] Univers 00:00:00 00:00:00 Marcelina C DIRECTOR SPECIALTY [id number] ity of [facility] [id number] [place] as MATERNAL [id number] [facility] [address] [place] [address] 2021-08-08 2021-08-08 Outpatient R AKINSIPE, [facility] [id number] Univers 14:45:00 15:54:48 MARCELINA ity o [facility] 2021-08-08 2021-08-[address] [facility] [id number] Univers 14:45:00 15:54:48 Visit Marcelina Hollis DIRECTOR SPECIALTY [id number] ity of REGIONAL [id number] [place] as MATERNAL [id number] Med ical & CHILD [address] [place] [address] 2021-06-26 2021-06-26 [facility] [id number] Univers 06:35:31 23:59:00 MARCELINA calixtomarshall o f [place] [facility] 2021-06-26 2021-06-26 Hospital [facility] [id number] Univers 06:35:31 23:59:00 Encounter Marcelina Hollis SPECIALTY [id number] ity of [id number] [place] [id number] Dc raudel BLANCO 5 [facility] 2021-06-26 2021-06-26 [facility] [id number] Univers 00:00:00 00:00:00 MARCELINA wilkinson o [facility] 2021-06-26 2021-06-26 [facility] [id number] Univers 00:00:00 00:00:00 MARCELINA wilkinson o [facility] 2021-06-05 2021-06-05 Orders Doctor [place] [id number] Univers 00:00:00 00:00:00 Only Unassigned, LONI [id number] ity of [place] [facility] [id number] [place] as [phone] [facility] 009 Branch 2021-05-28 2021-05-28 Office Pgy3 UNIVERSIT [id number] Univers 14:30:00 16:27:34 Visit Hortencia Ludwig [facility] [id number] ity of CL[place] [id number] [place] [id number] [facility] 113 Branch 2021-05-28 2021-05-28 [facility] [id number] Univers 14:30:00 16:27:[address] [facility] 2021-05-28 2021-05-28 Outpatient R MARCO ANTONIO [facility] [id number] Univers 14:30:00 16:27:[address] [facility] 2021-05-28 2021-05-28 Outpatient R MARCO ANTONIO [facility] [id number] Univers 14:30:00 16:27:[address] [facility] 2021-05-28 2021-05-28 Outpatient R MARCO ANTONIO, [facility] [id number] Univers 14:30:00 14:30:00 [facility] 2021-05-16 2021-05-16 Telephone [place] Aguillon [id number] Univers 00:00:00 00:00:00 Elodia IVEY [id number] [facility] [id number] [place] as [id number] [address] 2021-05-15 2021-05-15 [facility] [id number] Univers 20:15:00 20:30:38 [facility] 2021-05-15 2021-05-15 [facility] [id number] Univers 20:15:00 20:30:38 [facility] 2021-05-15 2021-05-15 Laboratory Only, Ang Db Test [facility] [id number] Univers 20:15:00 20:30:00 Only Rojelio [facility] [id number] ity [facility] [id number] [place]ana as ELLIOT?BLEA [phone] [address] MEDICAL OFFICE BUILDING 2021-05-02 2021-05-02 Outpatient R ANAMIKA [facility] [id number] Univers 14:15:00 15:54:46 MARCELINA ity o f [place] [facility] 2021-05-02 2021-05-[address] [facility] [id number] Univers 14:15:00 15:54:46 Visit Marcelina Hollis DIRECTOR SPECIALTY [id number] ity of [facility] [id number] Santana as MATERNAL [id number] Med ical & CHILD [address] [place] [address] 2021-05-02 2021-05-02 Outpatient R AKINSIPE, [facility] [id number] Univers 14:15:00 14:15:00 MARCELINA ity o [facility] 2021-05-02 2021-05-02 Orders Doctor [place] [id number] Univers 00:00:00 00:00:00 Only Unassigned, LONI [id number] [facility] [id number] [place] as [id number] [address] 2020-11-21 2020-11-21 Outpatient R ANAMIKA, [facility] [id number] Univers 14:15:00 14:15:00 MARCELINA calixtoy o [facility] 2020-11-21 2020-11-21 Outpatient R AKINSIPE, [facility] [id number] Univers 14:15:00 14:15:00 MARCELINA ity o [facility] 2020-09-27 2020-09-27 Outpatient R AKINSIPE, [facility] [id number] Univers 13:15:00 13:15:00 MARCELINA ity o f [place] [facility] 2020-09-27 2020-09-27 Outpatient R AKINSIPE, [facility] [id number] Univers 13:15:00 13:15:00 MARCELINA ity o [facility] 2020-06-27 2020-06-27 Outpatient R ALEXA, [facility] [id number] Univers 16:00:00 16:00:[address] [facility] 2020-06-21 2020-06-21 Outpatient R AKINSIPE, [facility] [id number] Univers 00:00:00 00:00:00 MARCELINA ity o f [place] [facility] 2020-06-21 2020-06-21 Outpatient R IRENESIPE, [facility] [id number] Univers 00:00:00 00:00:00 MARCELINA ity o f [place] [facility] 2020-05-03 2020-05-03 Outpatient R ANAMIKA, [facility] [id number] Univers 14:30:00 14:30:00 MARCELINA bell [facility] Results Test Description Test Time Test Comments Results Result Comments Source POCT URINALYSIS W/O SPECIFIC GRAVITY 2021-12-04 20:55:00 Test Item Value Reference Range Interpretation Comme nts POCT PH U (test code = 3254) . 5-8 POCT U LEUK EST (test code = 3263) . Negative - Negative POCT U NIT (test code = 3262) . Negative - Negative POCT U PROT (test code = 3259) . Negative - Negative POCT U GLU (test code = 3256) . Negative - Negative POCT U KETONE (test code = 3258) . Negative - Negative POCT U BLD (test code = 3257) . Negative - [facility] [id number] 20:55:00 Test Item Value Reference Range Interpretation Comments POCT PH U (test code = 3254) . 5-8 POCT U LEUK EST (test code = 3263) . Negative - Negative POCT U NIT (test code = 3262) . Negative - Negative POCT U PROT (test code = 3259) . Negative - Negative POCT U GLU (test code = 3256) . Negative - Negative POCT U KETONE (test code = 3258) . Negative - Negative POCT U BLD (test code = 3257) . Negative - Negative [facility]
[2022-05-30 14:20] LABS: Absolute Lymphocytes (CBC) 1.6 K/uL (0.7-4.9); Hematocrit 40.8 % (36.0-45.0); Lymphocytes % 31.7 % (15.3-44.8); MCV 90.5 fL (80-100); MPV 7.4 fL (7.6-11.3); RBC Red Blood Cell Count 4.51 M/uL (3.86-4.86)
[2022-05-30 14:37] LABS: Albumin 3.5 g/dL (3.4-5.0); Bilirubin Total 0.4 mg/dL (0.2-1.0); Potassium 3.9 mmol/L (3.5-5.1); Protein, Total 7.5 g/dL (6.4-8.2); Troponin High Sensitivity 3.8 pg/mL (<58.9)
[2022-05-30 14:43] LABS: Urine Blood Trace-intact (Negative); Urine Glucose Negative (Negative); Urine Protein Negative (Negative); Urine Specific Gravity <=1.005 (1.005-1.030); Urine pH 6.5 (5.0-7.0)
[2022-05-30 16:13] LABS: Urine Bacteria <20 /HPF (<20); Urine RBC None Seen /HPF (None Seen)
--- NOTE | 2022-05-30 16:17 | EDPHYS ---
Physician Documentation [facility] Name: Mitali Law Age: 46 yrs Sex: Female : 1975 Arrival Date: 05/30/2022 Time: 13:20 Bed 15 Private MD: Galen Infante ED Physician Rodríguez Berg HPI: 05/30 14:08 This 46 yrs old Female presents to ER via Ambulatory with complaints of High Blood rt Pressure, Dizziness, Blurred Vision. 14:08 Patient presents to the ED with reported hypertension yesterday. She stated that was rt about 170s systolic. Patient states that she woke up with some mild blurred vision that is since completely resolved. Denies any headache, chest pain, shortness of breath. Really pains are of a mild left-sided flank pain that also has almost resolved. She states that she feels well otherwise and is only concerned about her blood pressure. Symptoms are mild in severity, no other aggravating or alleviating factors.. 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 - Social history:: Smoking status: Patient denies any tobacco usage or history of. - Family history:: not pertinent. ROS: 14:08 Constitutional: Negative for fever, chills, and weight loss, ENT: Negative for injury, rt pain, and discharge, Cardiovascular: Negative for chest pain, palpitations, and edema, Respiratory: Negative for shortness of breath, cough, wheezing, and pleuritic chest pain, Abdomen/GI: Negative for abdominal pain, nausea, vomiting, diarrhea, and constipation, Skin: Negative for injury, rash, and discoloration, Neuro: Negative for headache, weakness, numbness, tingling, and seizure, Psych: Negative for depression, anxiety, suicide ideation, homicidal ideation, and hallucinations. 14:08 Eyes: Positive for blurry vision, Negative for vision loss. 14:08 ENT: Positive for 14:08 ENT: 14:08 Back: Positive for flank pain, on the left, Negative for injury or acute deformity. Exam: 14:08 Constitutional: This is a well developed, well nourished patient who is awake, alert, rt and in no acute distress. Head/Face: Normocephalic, atraumatic. Chest/axilla: Normal chest wall appearance and motion. Nontender with no deformity. No lesions are appreciated. Cardiovascular: Regular rate and rhythm with a normal S1 and S2. No gallops, murmurs, or rubs. Normal PMI, no JVD. No pulse deficits. Respiratory: Lungs have equal breath sounds bilaterally, clear to auscultation and percussion. No rales, rhonchi or wheezes noted. No increased work of breathing, no retractions or nasal flaring. Abdomen/GI: Soft, non-tender, with normal bowel sounds. No distension or tympany. No guarding or rebound. No evidence of tenderness throughout. Skin: Warm, dry with normal turgor. Normal color with no rashes, no lesions, and no evidence of cellulitis. MS/ Extremity: Pulses equal, no cyanosis. Neurovascular intact. Full, normal range of motion. Neuro: Awake and alert, GCS 15, oriented to person, place, time, and situation. Cranial nerves II-XII grossly intact. Motor strength 5/5 in all extremities. Sensory grossly intact. Cerebellar exam normal. Normal gait. Psych: Awake, alert, with orientation to person, place and time. Behavior, mood, and affect are within normal limits. 14:12 ECG was reviewed by the Attending Physician. rt Vital Signs: 13:24 BP 134 / 92; Pulse 77; Resp 16; Temp 98.1; Pulse Ox 100% on R/A; iw 14:30 BP 119 / 85; Pulse 80; Resp 9; Pulse Ox 95% ; bp 16:09 BP 126 / 91; Pulse 75; Resp 15; Pulse Ox 97% ; bp MDM: 13:32 Patient medically screened. rt 16:17 Differential diagnosis: Hypertension, elevated blood pressure reading. Differential rt diagnosis: Pyelonephritis, kidney stone. Data reviewed: vital signs, nurses notes, lab test result(s), EKG, radiologic studies. Test considered but Not performed: X-ray: No respiratory symptoms, x-ray not indicated. Care significantly affected by the following chronic conditions: Obesity. Counseling: I had a detailed discussion with the patient and/or guardian regarding: the historical points, exam findings, and any diagnostic results supporting the discharge/admit diagnosis, the presence of at least one elevated blood pressure reading (>120/80) during this emergency department visit, lab results, radiology results, the need for outpatient follow up, No evidence of endorgan dysfunction, no need to start antihypertensives at this time. 05/30 13:45 Order name: CBC with Diff; Complete Time: 14:38 rt 05/30 13:45 Order name: CMP; Complete Time: 14:38 rt 05/30 13:45 Order name: Troponin High Sensitivity; Complete Time: 14:38 rt 05/30 13:45 Order name: EKG; Complete Time: 13:46 rt 05/30 14:43 Order name: Urine Dipstick-Ancillary; Complete Time: 14:43 EDMS 05/30 14:44 Order name: Urine Microscopic Only; Complete Time: 16:14 rt 05/30 13:45 Order name: Urine Dipstick-Ancillary (obtain specimen); Complete Time: 14:36 rt 05/30 13:45 Order name: EKG - Nurse/Tech; Complete Time: 14:36 rt EC:12 Rate is 83 beats/min. Rhythm is regular, Normal Sinus Rhythm with No ectopy. QRS [place] rt is Normal. [place] interval is normal. QRS interval is normal. QT interval is normal. No Q waves. T waves are Normal. No ST changes noted. Clinical impression: Normal ECG. Interpreted by me. Administered Medications: No medications were administered Disposition Summary: 05/30/22 16:16 Discharge Ordered Location: Home rt Problem: new rt Symptoms: are resolved rt Condition: Stable rt Diagnosis - Elevated blood-pressure reading, without diagnosis of hypertension rt Followup: rt - With: Galen Infante MD - When: 1 week - Reason: Discharge Instructions: - Discharge Summary Sheet rt - Hypertension, Adult rt - How to Take Your Blood Pressure, [id number] rt - Form - Blood Pressure Record Sheet rt Forms: - Medication Reconciliation Form rt - Thank You Letter rt - Antibiotic Education rt - Prescription Opioid Use rt Signatures: Dispatcher [employer] EDHolly León RN RN iw [place], Ryan, MD MD rt
--- NOTE | 2022-05-30 16:17 | ER ---
Nurse's Notes [facility] Name: Mitali Law Age: 46 yrs Sex: Female : 1975 Arrival Date: 05/30/2022 Time: 13:20 Bed 15 Private MD: Galen Infante Diagnosis: Elevated blood-pressure reading, without diagnosis of hypertension Presentation: 05/30 13:24 Chief complaint: Patient states: my BP was high last night and today it was 177/117, iw does not take BP meds, it's usually low, reports mild blurry vision , no headache today . woke up with pain in her left side. Coronavirus screen: At this time, the client does not indicate any symptoms associated with coronavirus-19. Ebola Screen: Patient negative for fever greater than or equal to 101.5 degrees Fahrenheit, and additional compatible Ebola Virus Disease symptoms Patient denies exposure to infectious person. Patient denies travel to an Ebola-affected area in the 21 days before illness onset. No symptoms or risks identified at this time. Initial Sepsis Screen: Does the patient meet any 2 criteria? No. Patient's initial sepsis screen is negative. Does the patient have a suspected source of infection? No. Patient's initial sepsis screen is negative. Risk Assessment: Do you want to hurt yourself or someone else? Patient reports no desire to harm self or others. Onset of symptoms was May 30, 2022. 13:24 Method Of Arrival: Ambulatory iw 13:24 Acuity: JAIR 3 iw Triage Assessment: 13:28 General: Appears in no apparent distress. obese, Behavior is cooperative, appropriate bp for age, anxious. Pain: Denies pain. EENT: No deficits noted. Neuro: No deficits noted. Cardiovascular: No deficits noted. Respiratory: No deficits noted. GI: No signs and/or symptoms were reported involving the gastrointestinal system. : No signs and/or symptoms were reported regarding the genitourinary system. Derm: No deficits noted. Musculoskeletal: No deficits noted. 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 - Social history:: Smoking status: Patient denies any tobacco usage or history of. - Family history:: not pertinent. Screenin:30 [facility] ED Fall Risk Assessment (Adult) History of falling in the last 3 months, bp including since admission No falls in past 3 months (0 pts). Abuse screen: Denies threats or abuse. Denies injuries from another. Nutritional screening: No deficits noted. Tuberculosis screening: No symptoms or risk factors identified. Assessment: 13:29 General: SEE TRIAGE NOTE. bp 14:30 Reassessment: No changes from previously documented assessment. Patient and/or family bp updated on plan of care and expected duration. Pain level reassessed. 16:09 Reassessment: No changes from previously documented assessment. Patient and/or family bp updated on plan of care and expected duration. Pain level reassessed. 16:32 Reassessment: DC HOME AMBULATORY. bp Vital Signs: 13:24 BP 134 / 92; Pulse 77; Resp 16; Temp 98.1; Pulse Ox 100% on R/A; iw 14:30 BP 119 / 85; Pulse 80; Resp 9; Pulse Ox 95% ; bp 16:09 BP 126 / 91; Pulse 75; Resp 15; Pulse Ox 97% ; bp ED Course: 13:20 Patient arrived in ED. as 13:20 Galen Infante MD is Private Physician. as 13:26 Triage completed. iw 13:26 Arm band placed on. iw 13:27 Nicholas Ceballos, GIORGIO is Primary Nurse. bp 13:28 Rodríguez Berg MD is Attending Physician. rt 13:30 Patient has correct armband on for positive identification. Bed in low position. Call bp light in reach. Side rails up X2. 14:20 Initial lab(s) drawn, by me, sent to lab. Urine collected: clean catch specimen, kj1 cloudy. Inserted saline lock: 20 gauge in right antecubital area, using aseptic technique. Blood collected. 16:16 Galen Infante MD is Referral Physician. rt 16:32 No provider procedures requiring assistance completed. IV discontinued, intact, iw bleeding controlled, No redness/swelling at site. Pressure dressing applied. Administered Medications: No medications were administered Medication: 13:29 VIS not applicable for this client. bp Outcome: 16:16 Discharge ordered by . rt 16:32 Discharged to home ambulatory. iw 16:32 Condition: good 16:32 Discharge instructions given to patient, Instructed on discharge instructions, follow up and referral plans. Demonstrated understanding of instructions, follow-up care. 16:32 Patient left the ED. iw Signatures: Kira Puri Irene, RN RN iw Nicholas Ceballos RN RN bp Lise Barros kj1 Rodríguez Berg MD MD rt
[2022-05-30 17:16] VITALS: TEMP 98.1
[2022-05-30 17:18] VITALS: BP 126/91; O2SAT 97
== END 2022-05-30 16:32 | disposition home or self-care (01) ==
LOC: ER 13:18
DX: R03.0 Elevated blood-pressure reading, without diagnosis of hypertension (principal)
CPT/HCPCS: 36415; 80053; 81003; 81015; 84484; 85025; 93005; 99283

== ENCOUNTER 2022-11-01 14:44 | Emergency (ER) | payer SELFPAY ==
--- OUTSIDE RECORDS SUMMARY | 2022-11-01 14:47 | XMS REPORT | Continuity of Care Document ---
:1975 Author Organization [facility] t Address [address] [facility] [address] [place] [address] Care Team Providers Name Role Phone Galen Infante Jr. Primary Care Physician ALEX MOSLEY Attending Clinician Unavailable Anuja ACNAlex Simons Attending Clinician MARCELINA WILLSON Attending Clinician Unavailable QUETA BLAIR Attending Clinician Unavailable Lab, Ang-Rmchp Attending Clinician Unavailable Queta Clemente Attending Clinician Anamika [facility] Attending Clinician [phone] Doctor Unassigned, Irene Attending Clinician Unavailable Pgy3 Attending Clinician Unavailable Hortencia Ludwig MD Attending Clinician HORTENCIA LUDWIG Attending Clinician Unavailable Elodia Aguillon RN Attending Clinician Unavailable TODD SERRATO Attending Clinician Unavailable Only, Ang Db Test Attending Clinician Unavailable Todd Serrato MD Attending Clinician MERCEDEZ LIU Attending Clinician Unavailable MARCELINA WILLSON Admitting Clinician Unavailable Payers Payer Name Policy Type Policy Number Effective Date Expiration Date S jessica [facility] [id number] 2016 00:00:00 [facility] [id number] 2021 CHOICE 00:00:00 Problems Condition Condition Condition Status Onset Resolution Last Treating Co mments Source Name Details Category Date Date Treatment Clinician Date Heavy Heavy Disease Active Overview: Amalia s menses menses 1-12 Formattin ity of 00:00: g of this [place] 00 note Medical might be Branch different from the original. Records received, see scanned records Pre-op dx- excessive and frequent menstruat ion with irregular cyclePost -op dx- not statedDia gnosis: Prolifera tive endometri umNo evidence of hyperplas ia or malignanc y Elevated Elevated Disease Active Unive rs blood blood 1-12 ity of pressure pressure 00:00: [place] reading reading 00 Medical without without Branch diagnosis diagnosis of of hypertensi hypertensi on on Other Other Disease Active Univers general general 1-13 [place] of counseling [place] and advice and advice 00 Ct dical for for Branch contracept contracept shahla shahla management management Over Over Disease Active Univers weight weight 1-13 ity of 00:00: [place] 00 Medical Branch Vaginal Vaginal Disease Active Univers discharge discharge 1-13 ity of 00:00: [place] 00 Medical Branch Encounter Encounter Disease Active Uni vers for for 6-20 ity of screening screening 00:00: Rojelio moya mammogram mammogram 00 [facility] for breast for breast Br anch cancer [...] tubal 6-20 ity of ligation ligation 00:00: [place] [address] Medical Branch Allergies, Adverse Reactions, Alerts Allergy [...] Propensi Active Itching Univers (Sulfona ty to 9-06 ity of mide adverse 00:00: [place] Antibiot reaction 00 Medica l ics) s Branch SULFA Drug Active ITCHING Univers (SULFONA Class 9-06 ity of MIDE 00:00: [place] ANTIBIOT 00 Medical ICS) Branch Social History Social Habit Start Date Stop Date Quantity Comments Source History of Cigarette Smoker Universi ty of tobacco use [facility] Exposure to 2022-07-13 2022-07-23 Not sure University SARS-CoV-2 00:00:00 21:06:00 [facility] (event) Branch Alcohol intake 2022-07-23 2022-07-23 Current University of 00:00:00 00:00:00 non-drinker of [facility] alcohol (finding) Branch Tobacco use and 2021-12-04 2021-12-04 Smokeless tobacco Un iversity of exposure 00:00:00 00:00:00 non-user [facility] Tobacco Comment 2021-12-04 2021-12-04 smokes 2 x per Unive rsity of 00:00:00 00:00:00 day [facility] Sex Ass[birth year] Universit y of 00:00:00 00:00:00 [facility] Smoking Status Start Date Stop Date Source Ex-smoker 2021-12-04 00:00:00 2021-12-04 00:00:00 Universi ty of [facility] Medications Ordered Filled Start Stop Current Ordering Indication Dosage Frequency Signature Comments Components Source Medication Medication Date Date Medication? Clinician (SIG) Name Name Yes Take by [employer] 105-iron-fo 7-05 mouth. ity of lic ac-dha 13:52: [place] 30 mg iron- 46 Medical 1.4 mg-300 Branch mg Cmpk Yes Take by [employer] 105-iron-fo 7-05 mouth. ity of lic ac-dha 13:52: [place] 30 mg iron- 46 Medical 1.4 mg-300 Branch mg Cmpk Yes Take by [facility] 105-iron-fo 705 mouth. ity of lic ac-dha 13:52: [place] 30 mg iron- 46 Medical 1.4 mg-300 Branch mg Cmpk Yes Take by [facility] 105-iron-fo 7-05 mouth. ity of lic ac-dha 13:52: [place] 30 mg iron- 46 Medical 1.4 mg-300 Branch mg Cmpk Nitrofurant Yes [id number] 100mg Take 1 Univers oin&Nit. 7-05 capsule by ity o f Macrocryst 00:00: [place] (MACROB[place] 00 (two) Medical 100 mg times Branch capsule daily. Nitrofurant Yes [id number] 100mg Take 1 Univers oin&Nit. 7-05 capsule by ity o f Macrocryst 00:[place]: [place] (MACROBID[place] 00 (two) Medical 100 mg times Branch capsule daily. Nitrofurant Yes [id number] 100mg Take 1 Univers oin&Nit. 7-05 capsule by ity o f Mac[place]ryst [place] (MACROBID[place] 00 (two) Medical 100 mg times Branch capsule daily. Nitrofurant Yes [id number] 100mg Take 1 Univers oin&Nit. 7-05 capsule by ity o f Mac[place]ryst 00:[place] (MACROBID[place] 00 (two) Medical 100 mg times Branch capsule daily. norethindro Yes [id number] 1{tbl} Take 1 Univers ne 0.35 mg 2-07 tablet by ity of tablet 00:00: mouth [place] 00 daily. Medical Branch ferrous Yes [id number] 325mg Take 1 Un myrna sulfate 325 2-07 tablet by ity of mg (65 mg 00:00: mouth 2 [place] iron) 00 (two) Medical tablet times Branch daily. norethindro Yes [id number] 1{tbl} Take 1 Univers ne 0.35 mg 2-07 tablet by ity of tablet 00:00: mouth [place] 00 daily. Medical Branch ferrous Yes [id number] 325mg Take 1 Un myrna sulfate 325 2-07 tablet by ity of mg (65 mg 00:00: mouth 2 [place] iron) 00 (two) Medical tablet times Branch daily. norethindro 2021-0 Yes [id number] 1{tbl} Take 1 Univers ne 0.35 mg 2-07 tablet by ity of tablet 00:00: mouth [place] 00 daily. Medical Branch ferrous 2021-0 Yes [id number] 325mg Take 1 Un myrna sulfate 325 2-07 tablet by ity of mg (65 mg 00:00: mouth 2 [place] iron) 00 (two) Medical tablet times Branch daily. norethindro 2021-0 Yes [id number] 1{tbl} Take 1 Univers ne 0.35 mg 2-07 tablet by ity of tablet 00:00: mouth [place] 00 daily. Medical Branch ferrous 2021-0 Yes [id number] 325mg Take 1 Un myrna sulfate 325 2-07 tablet by ity of mg (65 mg 00:00: mouth 2 [place] iron) 00 (two) Medical tablet times Branch daily. Norethindro 2020-0 Yes [id number] 1{tbl} Take 1 Univers ne 3-09 tablet by ity of Acet-Ethiny 00:00: mouth [place] l Est 00 daily. Medical (LOESTRIN Branch ,) 1.5-30 mg-mcg per tablet Norethindro 2020-0 Yes [id number] 1{tbl} Take 1 Univers ne 3-09 tablet by ity of Acet-Ethiny 00:00: mouth [place] l Est 00 daily. Medical (LOESTRIN Branch , ,) 1.5-30 mg-mcg per tablet Norethindro 2020-0 Yes [id number] 1{tbl} Take 1 Univers ne 3-09 tablet by ity of Acet-Ethiny 00:00: mouth [place] l Est 00 daily. Medical (LOESTRIN Branch , ,) 1.5-30 mg-mcg per tablet Norethindro 2020-0 Yes [id number] 1{tbl} Take 1 Univers ne 3-09 tablet by ity of Acet-Ethiny 00:00: mouth [place] l Est 00 daily. Medical (LOESTRIN Branch , 21,) 1.5-30 mg-mcg per tablet Immunizations Ordered Filled Immunization Date Status Comments Sourc e Immunization Name Name Td 2010-06-03 Completed University of 00:00:00 [facility] Branch Td 2010-06-03 Completed University of 00:00:00 [place] [facility] Td 2010-06-03 Completed University of 00:00:00 [facility] TD, NOS 2010-06-03 Completed University of 00:00:00 [facility] Vital Signs Vital Name Observation Time Observation Value Comments Source Systolic blood 2022-07-24 02:06:00 159 mm[Hg] Univer sity of pressure [facility] Diastolic blood 2022-07-24 02:06:00 106 mm[Hg] Unive rsity of [facility] Heart rate 2022-07-24 02:06:00 90 /min Universi ty [facility] [place] [facility] Body temperature 2022-07-24 02:06:[address] [facility] Res[facility] rate 2022-07-24 02:06:00 16 /min [facility] Body height 2022-07-24 02:06:00 160 cm Universi ty [facility] [place] [facility] Body weight 2022-07-24 02:06:00 81.647 kg Universi ty [facility] [place] [facility] BMI 2022-07-24 02:06:00 31.89 [facility] saturation in 2022-07-24 02:06:00 100 /min [facility] Arterial blood by [facility] Pulse oximetry Branch Systolic blood 2021-12-04 20:55:00 135 mm[Hg] Univer sity of [facility] Diastolic blood 2021-12-04 20:55:00 92 mm[Hg] Unive rsity of pressure [facility] Heart rate 2021-12-04 20:55:00 86 /min Universi ty [facility] [place] [facility] Body temperature 2021-12-04 20:54:00 36.56 Lois [facility] Respiratory rate 2021-12-04 20:54:00 20 /min Univ ersity [facility] [place] [facility] Body height 2021-12-04 20:54:00 160 cm Universi ty [facility] [place] [facility] Body weight 2021-12-04 20:54:00 84.567 kg Universi ty [facility] [place] [facility] BMI 2021-12-04 20:54:00 33.03 kg/m2 Universi ty of [facility] Procedures Procedure Date / Time Performed Performing Clinician Jorge choe NOTICE OF PRIVACY 2022-07-24 01:52:33 Doctor Unassigned, No Univ ersity [facility] PRACTICES Name Medical Branch CONSENT/REFUSAL FOR 2022-07-24 01:52:12 Doctor Unassigned, No [facility] AND Name [facility] Branch TREATMENT POCT URINALYSIS W/O 2021-12-04 20:55:00 Marcelina Willson [facility] SPECIFIC GRAVITY [facility] Emergency Encounters Start End Encounter Admission Attending Care Care Encounter Source Date/Time Date/Time Type Type Clinicians Facility Department ID 2022-07-23 2022-07-23 Emergency X RIDDLE, [facility] ERT [id number] Univers 21:09:00 22:34:00 ALEX it y of [facility] 2022-07-23 2022-07-23 Emergency Fraziers Bottom, [facility] [id number] Univers 21:09:00 22:34:00 Alex PENA [id number] ity [id number] [id number] [address] 2022-04-22 2022-04-22 Outpatient R ANAMIKA, [facility] [id number] Univers 13:15:00 13:15:00 MARCELINA de lunay o f [facility] 2021-12-05 2021-12-05 Outpatient R [facility] [id number] Univers 13:30:00 13:30:00 ity of [facility] 2021-12-05 2021-12-05 Outpatient R JOHNNIE [facility] [id number] Univers 13:30:00 13:30:00 QUETA de lunay o f [facility] 2021-12-05 2021-12-05 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 Univers 13:30:00 13:30:00 Visit Queta Blair R RESPITE COORDINATOR [id number] ity [facility] [id number] Santana as MATERNAL [id number] Med ical & CHILD [address] [place] [address] 2021-12-04 2021-12-04 [facility] [id number] Univers 15:30:00 16:27:05 QUETA wilkinson o [facility] 2021-12-04 2021-12-04 [facility] [id number] Univers 15:30:00 16:27:05 Visit Queta R RESPITE COORDINATOR [id number] ity of [facility] [id number] Santana as MATERNAL [phone] [facility] & CHILD [address] [place] [address] 2021-12-04 2021-12-04 Outpatient R JOHNNIE [facility] [id number] Univers 15:30:00 16:27:05 [facility] wilkinson o [facility] 2021-10-23 2021-10-23 Outpatient [facility] [id number] Univers 13:30:00 14:13:37 MARCELINA wilkinson o [facility] 2021-10-23 2021-10-23 Office [facility] [id number] Univers 13:30:00 14:13:37 Visit Marcelina C RESPITE COORDINATOR [id number] ity of [facility] [id number] Santana as MATERNAL [id number] [facility] & CHILD [address] [place] [address] 2021-10-19 2021-10-19 Telephone [facility] [id number] Univers 00:00:00 00:00:00 Marcelina C RESPITE COORDINATOR [id number] ity of [facility] [id number] Santana as MATERNAL [id number] [facility] & CHILD [address] [place] [address] 2021-10-01 2021-10-01 Outpatient R ANAMIKA [facility] [id number] Univers 15:00:00 15:00:00 MARCELINA wilkinson o [facility] 2021-10-01 2021-10-01 Out[facility] [id number] Univers 15:00:00 15:00:00 MARCELINA ity o [facility] 2021-10-01 2021-10-01 Outpatient R ANAMIKA, [facility] [id number] Univers 15:00:00 15:00:00 MARCELINA ity o f [facility] 2021-10-01 2021-10-01 Outpatient R CITLALIPE, [facility] [id number] Univers 15:00:00 15:00:00 MARCELINA ity o [facility] 2021-08-10 2021-08-10 Telephone [facility] [id number] Univers 00:00:00 00:00:00 Marcelina Hollis RESPITE COORDINATOR [id number] ity [facility] [id number] Santana as MATERNAL [phone] [facility] ical & CHILD [address] [place] [address] 2021-08-08 2021-08-08 Outpatient R ANAMIKA, [facility] [id number] Univers 14:45:00 15:54:48 MARCELINA ity o [facility] 2021-08-08 2021-08-08 Office [facility] [id number] Univers 14:45:00 15:54:48 Visit Marcelina Hollis RESPITE COORDINATOR [id number] ity [facility] [id number] Santana as MATERNAL [id number] [facility] & CHILD [address] [place] [address] 2021-06-26 2021-06-26 Outpatient R ANAMIKA, [facility] [id number] Univers 06:35:31 23:59:00 MARCELINA ity o [facility] 2021-06-26 2021-06-26 [facility] [id number] Univers 06:35:31 23:59:00 Encounter Marcelina Hollis SPECIALTY [id number] ity of [facility] [id number] [place] C[place] AT [phone] Ct raudel BLANCO [address] [place] [address] 2021-06-26 2021-06-26 Outpatient R ANAMIKA, [facility] [id number] Univers 00:00:00 00:00:00 MARCELINA ity o f [facility] 2021-06-26 2021-06-26 Outpatient R ANAMIKA, [facility] [id number] Univers 00:00:00 00:00:00 MARCELINA ity o f [facility] 2021-06-05 2021-06-05 Orders Doctor BERNARDO [id number] Univers 00:00:00 00:00:00 Only Unassigned, LONI [id number] ity of Irene [facility] [id number] Santnaa as [id number] [facility] 009 Branch 2021-05-28 2021-05-28 Office Pgy3 UNIVERSIT [id number] Univers 14:30:00 16:27:34 Visit Hortencia Ludwig [facility] [id number] ity of [facility] [id number] [place] [id number] [facility] 113 Branch 2021-05-28 2021-05-28 Outpatient R LUDWIG, [facility] [id number] Univers 14:30:00 16:27:34 HORTENCIA ity [facility] [place] [facility] 2021-05-28 2021-05-28 Outpatient R LUDWIG, [facility] [id number] Univers 14:30:00 16:27:34 HORTENCIA ity [facility] [place] [facility] 2021-05-28 2021-05-28 Outpatient R LUDWIG, [facility] [id number] Univers 14:30:00 16:27:34 HORTENCIA ity [facility] 2021-05-28 2021-05-28 Outpatient R LUDWIG, [facility] [id number] Univers 14:30:00 14:30:00 HORTENCIA ity [facility] 2021-05-16 2021-05-16 Telephone [place] Aguillon [id number] Univers 00:00:00 00:00:00 Elodia LONI [id number] it y of [facility] [id number] Santana as [id number] [facility] 019 Branch 2021-05-152021-05-15 Outpatient R ROJELIO [facility] [id number] Univers 20:15:00 20:30:38 TODD [facility] 2021-05-15 2021-05-15 Outpatient [facility] [id number] Univers 20:15:00 20:30:38 TODD [facility] 2021-05-15 2021-05-15 Laboratory Only, Ang Db Test [facility] [id number] Univers 20:15:00 20:30:00 Only Rojelio [facility] [id number] ity [facility] [id number] [place]ana as ELLIOT?BLEA [id number] [address] MEDICAL OFFICE [facility] 2021-05-02 2021-05-02 Outpatient R ANAMIKA, [facility] [id number] Univers 14:15:00 15:54:46 MARCELINA saeed [facility] 2021-05-02 2021-05-02 Office [facility] [id number] Univers 14:15:00 15:54:46 Visit Marcelina Hollis RESPITE COORDINATOR [id number] ity [facility] [id number] Santana as MATERNAL [id number] [facility] ical & CHILD [address] [place] [address] 2021-05-02 2021-05-02 Outpatient R ANAMIKA, [facility] [id number] Univers 14:15:00 14:15:00 MARCELINA saeed [facility] 2021-05-02 2021-05-02 Orders Doctor BERNARDO [id number] Univers 00:00:00 00:00:00 Only Unassigned, LONI [id number] ity of [facility] [id number] [place] as [phone] [address] 2020-11-21 2020-11-21 Outpatient R ANAMIKA, [facility] [id number] Univers 14:15:00 14:15:00 MARCELINA saeed [facility] 2020-11-21 2020-11-21 Outpatient R AKINSIPE, [facility] [id number] Univers 14:15:00 14:15:00 MARCELINA wilkinson o [facility] 2020-09-27 2020-09-27 Outpatient R ANAMIKA, [facility] [id number] Univers 13:15:00 13:15:00 MARCELINA wilkinson o [facility] 2020-09-27 2020-09-27 Outpatient R ANAMIKA, [facility] [id number] Univers 13:15:00 13:15:00 MARCELINA wilkinson o [facility] 2020-06-27 2020-06-27 Outpatient R ALEXA, [facility] [id number] Univers 16:00:00 16:00:00 MERCEDEZ wilkinson [facility] 2020-06-21 2020-06-21 Outpatient R ANAMIKA, [facility] [id number] Univers 00:00:00 00:00:00 MARCELINA wilkinson o [facility] 2020-06-21 2020-06-21 Outpatient R CITLALIPE, [facility] [id number] Univers 00:00:00 00:00:00 MARCELINA wilkinson o [facility] 2020-05-03 2020-05-03 Outpatient R ANAMIKA, [facility] [id number] Univers 14:30:00 14:30:00 MARCELINA [facility] Results Test Description Test Time Test [...] code = 3257) . Negative - Negative [facility] W/O SPECIFIC [id number] 20:55:00 Test Item Value Reference Range Interpretation [...] code = 3257) . Negative - Negative [facility]
--- NOTE | 2022-11-01 15:06 | ER ---
Nurse's Notes [facility] Delmy Name: Mitali Law Age: 47 yrs Sex: Female : 1975 Arrival Date: 11/01/2022 Time: 14:44 Bed 12 Private MD: Galen Infante Diagnosis: Acute pharyngitis, unspecified Presentation: 11/01 14:54 Chief complaint: Patient states: congestion, low grade fever and sore throat that began ss Friday. Coronavirus screen: Client presents with at least one sign or symptom that may indicate coronavirus-19. Ebola Screen: Patient denies exposure to infectious person. Patient denies travel to an Ebola-affected area in the 21 days before illness onset. Initial Sepsis Screen: Does the patient meet any 2 criteria? No. Patient's initial sepsis screen is negative. Does the patient have a suspected source of infection? No. Patient's initial sepsis screen is negative. Risk Assessment: Do you want to hurt yourself or someone else? Patient reports no desire to harm self or others. Onset of symptoms was October 29, 2022. 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 - Social history:: Smoking status: Patient denies any tobacco usage or history of. - Family history:: not pertinent. Screenin:31 Abuse screen: Denies threats or abuse. Denies injuries from another. Nutritional ss screening: No deficits noted. Tuberculosis screening: Never had TB. Assessment: 15:31 General: Appears in no apparent distress. comfortable, Behavior is calm, cooperative. ss Pain: Complains of pain in throat Pain currently is 10 out of 10 on a pain scale. Quality of pain is described as sore. Worse when swallowing. Neuro: Level of Consciousness is awake, alert, obeys commands, Oriented to person, place, time, situation. Respiratory: Airway is patent Respiratory effort is even, unlabored, Respiratory pattern is regular, symmetrical. GI: Patient currently denies abdominal pain, diarrhea, nausea, vomiting. EENT: Throat is clear is reddened. Derm: Skin is pink, warm \T\ dry. normal. Vital Signs: 14:54 BP 124 / 85; Pulse 103; Resp 16; Temp 98.6(O); Pulse Ox 100% on R/A; Weight 81.65 kg; ss Height 5 ft. 3 in. ; Pain 10/10; 14:54 Body Mass Index 31.89 (81.65 kg, 160.02 cm) ss 14:54 Pain Scale: Adult ss ED Course: 14:47 Patient arrived in ED. mr 14:47 Rodríguez Berg MD is Attending Physician. rt 14:47 Galen Infante MD is Private Physician. mr 14:56 Triage completed. ss 14:56 Arm band placed on right wrist. ss 15:05 Galen Infante MD is Referral Physician. rt 15:31 Breann Rios, GIORGIO is Primary Nurse. ss 15:31 Patient has correct armband on for positive identification. Bed in low position. ss 15:31 No provider procedures requiring assistance completed. Patient did not have IV access ss during this emergency room visit. Administered Medications: 15:21 Drug: Dexamethasone IM 10 mg Route: IM; Site: right gluteus; ss 15:33 Follow up: Response: No adverse reaction; Medication administered at discharge. ss Medication: 15:31 VIS not applicable for this client. ss Outcome: 15:05 Discharge ordered by . rt 15:31 Discharged to home ambulatory. ss 15:31 Condition: good 15:31 Discharge instructions given to patient, Instructed on discharge instructions, follow up and referral plans. medication usage, Demonstrated understanding of instructions, follow-up care, medications, Prescriptions given X 1. 15:32 Patient left the ED. ss Signatures: Juanita Das mr Breann Rios, RN RN Rodríguez Berg MD MD rt
--- NOTE | 2022-11-01 15:06 | EDPHYS ---
Physician Documentation [facility] Name: Mitali Law Age: 47 yrs Sex: Female : 1975 Arrival Date: 11/01/2022 Time: 14:44 Bed 12 Private MD: Galen Infante ED Physician Rodrígeuz Berg HPI: 11/01 15:26 This 47 yrs old Female presents to ER via Ambulatory with complaints of Sore Throat, rt Fever, Congestion. 15:26 Patient presents to the ED with sore throat, congestion for the past 4 days. Denies rt significant cough, difficulty breathing. Denies other acute complaints at this time. Symptoms are mild in severity, no other aggravating or alleviating factors.. 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 - Social history:: Smoking status: Patient denies any tobacco usage or history of. - Family history:: not pertinent. ROS: 15:26 Constitutional: Negative for fever, chills, and weight loss, Cardiovascular: Negative rt for chest pain, palpitations, and edema, Respiratory: Negative for shortness of breath, cough, wheezing, and pleuritic chest pain, Abdomen/GI: Negative for abdominal pain, nausea, vomiting, diarrhea, and constipation. 15:26 ENT: Positive for rhinorrhea, sore throat. Exam: 15:26 Constitutional: This is a well developed, well nourished patient who is awake, alert, rt and in no acute distress. Head/Face: Normocephalic, atraumatic. Neck: Trachea midline, no thyromegaly or masses palpated, and no cervical lymphadenopathy. Supple, full range of motion without nuchal rigidity, or vertebral point tenderness. No Meningismus. Cardiovascular: Regular rate and rhythm with a normal S1 and S2. No gallops, murmurs, or rubs. Normal PMI, no JVD. No pulse deficits. Respiratory: Lungs have equal breath sounds bilaterally, clear to auscultation and percussion. No rales, rhonchi or wheezes noted. No increased work of breathing, no retractions or nasal flaring. Abdomen/GI: Soft, non-tender, with normal bowel sounds. No distension or tympany. No guarding or rebound. No evidence of tenderness throughout. 15:26 ENT: Moist mucous membranes, posterior pharyngeal erythema without exudates, tonsillar hypertrophy, uvula is. Vital Signs: 14:54 BP 124 / 85; Pulse 103; Resp 16; Temp 98.6(O); Pulse Ox 100% on R/A; Weight 81.65 kg; ss Height 5 ft. 3 in. ; Pain 10/10; 14:54 Body Mass Index 31.89 (81.65 kg, 160.02 cm) ss 14:54 Pain Scale: Adult ss MDM: 14:57 Patient medically screened. rt 15:26 Differential diagnosis: Strep pharyngitis, viral pharyngitis. Data reviewed: vital rt signs, nurses notes. Test considered but Not performed: Labs: After discussion with patient, will treat for strep pharyngitis empirically without testing.. Counseling: I had a detailed discussion with the patient and/or guardian regarding: the historical points, exam findings, and any diagnostic results supporting the discharge/admit diagnosis, the need for outpatient follow up. Administered Medications: 15:21 Drug: Dexamethasone IM 10 mg Route: IM; Site: right gluteus; ss 15:33 Follow up: Response: No adverse reaction; Medication administered at discharge. Disposition Summary: 11/01/22 15:05 Discharge Ordered Location: Home rt Problem: new rt Symptoms: are unchanged rt Condition: Stable rt Diagnosis - Acute pharyngitis, unspecified rt Followup: rt - With: Galen Infante MD - When: 2 - 3 days - Reason: Re-evaluation by your physician Discharge Instructions: - Discharge Summary Sheet rt - Sore Throat rt Forms: - Medication Reconciliation Form rt - Thank You Letter rt - Antibiotic Education rt - Prescription Opioid Use rt - Patient Portal Instructions rt Prescriptions: - Amoxicillin 875 mg Oral Tablet - take 1 tablet by ORAL route every 12 hours for 10 days; 20 tablet; Refills: 0, rt Product Selection Permitted Signatures: Breann Rios RN RN Rodríguez Berg MD MD rt
[2022-11-01] MEDS ORDERED: dexAMETHasone 10 MG/ML VIAL ONE (15:25)
[2022-11-01 15:37] VITALS: BP 124/85; TEMP 98.6; O2SAT 100
== END 2022-11-01 15:32 | disposition home or self-care (01) ==
LOC: ER 14:44
DX: J02.9 Acute pharyngitis, unspecified (principal)
CPT/HCPCS: 96372; 99284; J1100

== ENCOUNTER 2023-01-09 07:58 | Emergency (ER) | payer OTHER, SELFPAY ==
--- OUTSIDE RECORDS SUMMARY | 2023-01-09 08:03 | XMS REPORT | Continuity of Care Document ---
:1975 Author Organization [facility] t Address [address] [place] [address] [address] [place] [address] Care Team Providers Name Role Phone RAIN SANCHEZ JR Primary Care Physician Unavailable MARCELINA WILLSON Attending Clinician Unavailable ALEX MOSLEY Attending Clinician Unavailable Melany ACNAlex Simons Attending Clinician QUETA BLAIR Attending Clinician Unavailable Lab, Ang-Rmchp Attending Clinician Unavailable Queta Clemente Attending Clinician [facility]ending [facility]ician [phone] Doctor Unassigned, [place] Attending Clinician Unavailable Pgy3 Attending Clinician Unavailable Hortencia Ludwig MD Attending Clinician HORTENCIA LUDWIG Attending Clinician Unavailable Elodia Aguillon RN Attending Clinician Unavailable TODD SERRATO Attending Clinician Unavailable Only, Perez Db Test Attending Clinician Unavailable Todd Serrato MD Attending Clinician MERCEDEZ LIU Attending Clinician Unavailable MARCELINA WILLSON Admitting Clinician Unavailable Payers Payer Name Policy Type Policy Number Effective Date Expiration Date S [facility] [id number] 2016 00:00:00 [facility] [id number] 2021 CHOICE 00:00:00 Problems Condition Condition Condition Status Onset Resolution Last Treating Co mments Source Name Details Category Date Date Treatment Clinician Date Heavy Heavy Disease Active Overview: Univer s menses menses 1-12 Formattin ity of 00:00: g of this [place] 00 note Medical might be Branch different from the original. Records received, see scanned records Pre-op dx- excessive and frequent menstruat ion with irregular cyclePost -op dx- not statedDia gnosis: Prolifera tive endometri umNo evidence of hyperplas ia or malignanc y Elevated Elevated Disease Active Unive rs blood blood 1-12 ity of pressure pressure 00:00: [place] reading reading 00 Medical without without Branch diagnosis diagnosis of of hypertensi hypertensi on on Other Other Disease Active Univers general general 1-13 [place] of counseling [place] advice and advice 00 [place] dical for for Branch contracept contracept shahla shahla management management Over Over Disease Active Univers weight weight 1-13 ity of 00:00: [place] 00 Medical Branch Vaginal Vaginal Disease Active Univers discharge discharge 1-13 ity of 00:00: [place] [address] Medical Branch Encounter Encounter Disease Active Uni vers for for 6-20 ity of screening screening 00:00: Rojelio moya mammogram mammogram 00 [facility] for breast for breast Br anch cancer [...] tubal 6-20 ity of ligation ligation 00:00: [place] [address] Medical Branch Allergies, Adverse Reactions, Alerts Allergy [...] Cigarette Smoker Universi ty of tobacco use [facility] Exposure to 2022-07-13 2022-07-23 Not sure University of SARS-CoV-2 00:00:00 21:06:00 [facility] [place] (event) [place] Alcohol intake 2022-07-23 2022-07-23 Current University of 00:00:00 00:00:00 non-drinker of [facility] alcohol (finding) Branch Tobacco use and 2021-12-04 2021-12-04 Smokeless tobacco Un iversity of exposure 00:00:00 00:00:00 non-user [facility] Tobacco Comment 2021-12-04 2021-12-04 smokes 2 x per Unive rsity of 00:00:00 00:00:00 day [facility] Sex Ass[birth year] Universit y of 00:00:00 00:00:00 [facility] Smoking Status Start Date Stop Date Source Ex-smoker 2021-12-04 00:00:00 2021-12-04 00:00:00 Universi ty of [facility] Medications Ordered Filled Start Stop Current Ordering Indication Dosage Frequency Signature Comments Components Source Medication Medication Date Date Medication? Clinician (SIG) Name Name Yes Take by [facility] 105-iron-fo 7-05 mouth. ity of lic ac-dha 13:52: [place] 30 mg iron- 46 Medical 1.4 mg-300 Branch mg Cmpk Yes Take by [facility] 105-iron-fo 7-05 mouth. ity of lic ac-dha 13:52: [place] 30 mg iron- 46 Medical 1.4 mg-300 Branch mg Cmpk Yes Take by [facility] 105-iron-fo 7-05 mouth. ity of lic ac-dha 13:52: [place] 30 mg iron- 46 Medical 1.4 mg-300 Branch mg Cmpk Yes Take by [facility] 105-iron-fo 7-05 mouth. ity of lic ac-dha 13:52: [place] 30 mg iron- 46 Medical 1.4 mg-300 Branch mg Cmpk Nitrofurant Yes [id number] 100mg Take 1 Univers oin&Nit. 7-05 capsule by ity o f [place] 00:[place] (MACROBID[place] 00 (two) Medical 100 mg times Branch capsule daily. Nitrofurant Yes [id number] 100mg Take 1 Univers oin&Nit. 7-05 capsule by ity o f [place] 00:[place] (MACROBID) 00 (two) Medical 100 mg times Branch capsule daily. Nitrofurant Yes [id number] 100mg Take 1 Univers oin&Nit. 7-05 capsule by ity o f [place] (MACROBID[place] 00 (two) Medical 100 mg times Branch capsule daily. Nitrofurant Yes [id number] 100mg Take 1 Univers oin&Nit. 7-05 capsule by ity o f [place]: [place] (MACROBID) 00 (two) Medical 100 mg times Branch capsule daily. norethindro Yes [id number] 1{tbl} Take 1 Univers ne 0.35 mg 2-07 tablet by ity of tablet 00:00: mouth [place] 00 daily. Medical Branch ferrous Yes [id number] 325mg Take 1 Un myrna sulfate 325 2-07 tablet by ity of mg (65 mg 00:00: mouth 2 [place] iron) 00 (two) Medical tablet times Branch daily. norethindro Yes [id number] 1{tbl} Take 1 Univers ne 0.35 mg 2-07 tablet by ity of tablet 00:00: mouth [place] 00 daily. Medical Branch ferrous Yes [id number] 325mg Take 1 Un myrna sulfate 325 2-07 tablet by ity of mg (65 mg 00:00: mouth 2 [place] iron) 00 (two) Medical tablet times Branch daily. norethindro 2021-0 Yes [id number] 1{tbl} Take 1 Univers ne 0.35 mg 2-07 tablet by ity of tablet 00:00: mouth [place] 00 daily. Medical Branch ferrous 2021-0 Yes [id number] 325mg Take 1 Un myrna sulfate 325 2-07 tablet by ity of mg (65 mg 00:00: mouth 2 [place] iron) 00 (two) Medical tablet times Branch daily. norethindro 2021-0 Yes [id number] 1{tbl} Take 1 Univers ne 0.35 mg 2-07 tablet by ity of tablet 00:00: mouth [place] 00 daily. Medical Branch ferrous 2021-0 Yes [id number] 325mg Take 1 Un myrna sulfate 325 2-07 tablet by ity of mg (65 mg 00:00: mouth 2 [place] iron) 00 (two) Medical tablet times Branch daily. Norethindro 2020-0 Yes [id number] 1{tbl} Take 1 Univers ne 3-09 tablet by ity of Acet-Ethiny 00:00: mouth [place] l Est 00 daily. Medical (LOESTRIN Branch ,) 1.5-30 mg-mcg per tablet Norethindro 2020-0 Yes [id number] 1{tbl} Take 1 Univers ne 3-09 tablet by ity of Acet-Ethiny 00:00: mouth [place] l Est 00 daily. Medical (LOESTRIN Branch , ,) 1.5-30 mg-mcg per tablet Norethindro 2020-0 Yes [id number] 1{tbl} Take 1 Univers ne 3-09 tablet by ity of Acet-Ethiny 00:00: mouth [place] l Est 00 daily. Medical (LOESTRIN Branch ,) 1.5-30 mg-mcg per tablet Norethindro 2020-0 Yes [id number] 1{tbl} Take 1 Univers ne 3-09 tablet by ity of Acet-Ethiny 00:00: mouth [place] l Est 00 daily. Medical (LOESTRIN Branch , ,) 1.5-30 mg-mcg per tablet Vital Signs Vital Name Observation Time Observation Value Comments Source Systolic blood 2022-07-24 02:06:00 159 mm[Hg] Univer sity of pressure [place] [facility] Diastolic blood 2022-07-24 02:06:00 106 mm[Hg] Unive rsity of pressure [place] Medical [place] Heart rate 2022-07-24 02:06:00 90 /min Universi ty of [place] Medical [place] Body temperature 2022-07-24 02:06:00 36.61 Lois Univ ersity of [place] [facility] Respiratory rate 2022-07-24 02:06:00 16 /min Univ ersity of [place] [facility] Body height 2022-07-24 02:06:00 160 cm Universi ty of [place] [facility] Body weight 2022-07-24 02:06:00 81.647 kg Universi ty of [place] [facility] BMI 2022-07-24 02:06:00 31.89 kg/m2 Universi ty of [place] [facility] [place] Oxygen saturation in 2022-07-24 02:06:00 100 /min [facility] Arterial blood by [facility] Pulse oximetry Branch Systolic blood 2021-12-04 20:55:00 135 mm[Hg] Univer sity of pressure [place] Medical [place] Diastolic blood 2021-12-04 20:55:00 92 mm[Hg] Unive rsity of pressure [place] [facility] Heart rate 2021-12-04 20:55:00 86 /min Universi ty of [place] [facility] Body temperature 2021-12-04 20:54:00 36.56 Lois [facility] [place] Branch Respiratory rate 2021-12-04 20:54:00 20 /min [facility] ersity of [place] [facility] Body height 2021-12-04 20:54:00 160 cm Universi ty of [place] [facility] Body weight 2021-12-04 20:54:00 84.567 kg Universi ty of [place] [facility] BMI 2021-12-04 20:54:00 33.03 kg/m2 Universi ty of [place] [facility] Procedures Procedure Date / Time Performed Performing Clinician [facility] NOTICE OF PRIVACY 2022-07-24 01:52:33 Doctor Unassigned, No [facility] Medical Branch CONSENT/REFUSAL FOR 2022-07-24 01:52:12 Doctor Unassigned, No [facility] DI[facility]NOSIS AND Name Medical Branch TREATMENT POCT URINALYSIS W/O 2021-12-04 20:55:00 Marcelina Willson [facility] [place] SPECIFIC [facility] Encounters Start End Encounter Admission Attending Care Care Encounter Source Date/Time Date/Time Type Type Clinicians Facility Department ID 2022-07-23 2022-07-23 Emergency X MELANY, [facility] ERT [id number] Univers 21:09:00 22:34:00 ALEX it y of [facility] 2022-07-23 2022-07-23 Emergency [place], [facility] [id number] Univers 21:09:00 22:34:00 [facility] [id number] ity [facility] [id number] [facility] [id number] [address] 2022-04-22 2022-04-22 Outpatient R ANAMIKA [facility] [id number] Univers 13:15:00 13:15:00 MARCELINA de lunay o f [facility] 2021-12-05 2021-12-05 Outpatient R [facility] [id number] Univers 13:30:00 13:30:00 ity of [facility] 2021-12-05 2021-12-05 Outpatient R JOHNNIE [facility] [id number] Univers 13:30:00 13:30:00 QUETA de lunay o f [facility] 2021-12-05 2021-12-05 Capture Manager Lab, Ang-Rmchp [facility] [id number] Univers 13:30:00 13:30:00 Visit Queta Blair R SELLING SPECIALIST [id number] ity [facility] [id number] [place] as MATERNAL [phone] Med ical & CHILD [address] [place] [address] 2021-12-04 2021-12-04 Outpatient R JOHNNIE [facility] [id number] Univers 15:30:00 16:27:05 QUETA wilkinson o f [facility] 2021-12-04 2021-12-04 Office Johnnie [facility] [id number] Univers 15:30:00 16:27:05 Visit Queta R SELLING SPECIALIST [id number] ity of REGIONAL [id number] [place] as MATERNAL [id number] [facility] & CHILD [address] [place] [address] 2021-12-04 2021-12-04 Outpatient R BLAIR, [facility] [id number] Univers 15:30:00 16:27:05 JARRETTA calixtoy o [facility] 2021-10-23 2021-10-23 Outpatient R ANAMIKA, [facility] [id number] Univers 13:30:00 14:13:37 MARCELINA ity o [facility] 2021-10-23 2021-10-23 [facility] [id number] Univers 13:30:00 14:13:37 Visit Marcelina C SELLING SPECIALIST [id number] ity of REGIONAL [id number] [place] as MATERNAL [id number] [facility] & CHILD [address] [place] [address] 2021-10-19 2021-10-19 Telephone [facility] [id number] Univers 00:00:00 00:00:00 Marcelina C SELLING SPECIALIST [id number] ity of REGIONAL [id number] [place] MATERNAL [id number] [facility] & CHILD [address] [place] [address] 2021-10-01 2021-10-01 Outpatient R AKINSIPE, [facility] [id number] Univers 15:00:00 15:00:00 MARCELINA ity o f [facility] 2021-10-01 2021-10-01 Outpatient R AKINSIPE, [facility] [id number] Univers 15:00:00 15:00:00 MARCELINA ity o [facility] 2021-10-01 2021-10-01 Outpatient R AKINSIPE, [facility] [id number] Univers 15:00:00 15:00:00 MARCELINA ity o [facility] 2021-10-01 2021-10-01 Outpatient R AKINSIPE, [facility] [id number] Univers 15:00:00 15:00:00 MARCELINA ity o f [facility] 2021-08-10 2021-08-10 Telephone [facility] [id number] Univers 00:00:00 00:00:00 Marcelina Hollis SELLING SPECIALIST [id number] ity of [facility] [id number] [place] as MATERNAL [id number] [facility] & CHILD [address] [place] [address] 2021-08-08 2021-08-08 Outpatient R [facility] [id number] Univers 14:45:00 15:54:48 MARCELINA itmarshall o [facility] 2021-08-08 2021-08-08 Office [facility] [id number] Univers 14:45:00 15:54:48 Visit Marcelina Hollis SELLING SPECIALIST [id number] ity [facility] [id number] [place] as MATERNAL [id number] [facility] & [address] 2021-06-26 2021-06-26 Outpatient R [facility] [id number] Univers 06:35:31 23:59:00 MARCELINA calixtomarshall o [facility] 2021-06-26 2021-06-26 [facility] [id number] Univers 06:35:31 23:59:00 Encounter Marcelina Hollis SPECIALTY [id number] ity of [facility] [id number] [place] C[place] AT [id number] [address] 2021-06-26 2021-06-26 [facility] [id number] Univers 00:00:00 00:00:00 MARCELINA de lunay o [facility] 2021-06-26 2021-06-26 [facility] [id number] Univers 00:00:00 00:00:00 MARCELINA calixtoy o [facility] 2021-06-05 2021-06-05 Lucio BERNARDO [id number] Univers 00:00:00 00:00:00 Only Unassigned, LONI [id number] [facility] [id number] [place] as [id number] [facility] 009 Branch 2021-05-28 2021-05-28 Office Pgy3 UNIVERSIT [id number] Univers 14:30:00 16:27:34 Visit Hortencia Ludwig [facility] [id number] ity of [facility] [id number] [place] [id number] [facility] 113 Branch 2021-05-28 2021-05-28 Outpatient R MARCO ANTONIO, [facility] [id number] Univers 14:30:00 16:27:34 Kaleida Healthy [facility] 2021-05-28 2021-05-28 Outpatient R LUDWIG, [facility] [id number] Univers 14:30:00 16:27:34 [facility] 2021-05-28 2021-05-28 Outpatient R LUDWIG, [facility] [id number] Univers 14:30:00 16:27:34 [facility] 2021-05-28 2021-05-28 Outpatient R LUDWIG, [facility] [id number] Univers 14:30:00 14:30:00 [facility] 2021-05-16 2021-05-16 Telephone [place] [id number] Univers 00:00:00 00:00:00 Elodianellie IVEY [id number] it y of [facility] [id number] [place] as [id number] [facility] 019 [place] 2021-05-15 2021-05-15 Outpatient Arelis SERRATO [facility] [id number] Univers 20:15:00 20:30:38 [facility] 2021-05-15 2021-05-15 Outpatient Arelis SERRATO [facility] [id number] Univers 20:15:00 20:30:38 [facility] 2021-05-15 2021-05-15 Laboratory Only, Ang Db Test [facility] [id number] Univers 20:15:00 20:30:00 Only Todd Serrato [facility] [id number] ity [facility] [id number] [place] as ELLIOT?BLEA [id number] [address] MEDICAL OFFICE [facility] 2021-05-02 2021-05-02 Outpatient R AKINSIPE, [facility] [id number] Univers 14:15:00 15:54:46 MARCELINA ity o [facility] 2021-05-02 2021-05-02 [facility] [id number] Univers 14:15:00 15:54:46 Visit Marcelina Hollis SELLING SPECIALIST [id number] ity [facility] [id number] [place] as MATERNAL [id number] [facility] ical & CHILD [address] [place] [address] 2021-05-02 2021-05-02 Outpatient R AKINSIPE, [facility] [id number] Univers 14:15:00 14:15:00 MARCELINA ity o [facility] 2021-05-02 2021-05-02 Orders Doctor [place] [id number] Univers 00:00:00 00:00:00 Only Unassigned, LONI [id number] ity of [place] [facility] [id number] [place] as [id number] [address] 2020-11-21 2020-11-21 Outpatient R AKINSIPE, [facility] [id number] Univers 14:15:00 14:15:00 MARCELINA ity o [facility] 2020-11-21 2020-11-21 Outpatient R AKINSIPE, [facility] [id number] Univers 14:15:00 14:15:00 MARCELINA ity o [facility] 2020-09-27 2020-09-27 Outpatient R AKINSIPE, [facility] [id number] Univers 13:15:00 13:15:00 MARCELINA ity o [facility] 2020-09-27 2020-09-27 Outpatient R AKINSIPE, [facility] [id number] Univers 13:15:00 13:15:00 MARCELINA bell [facility] 2020-06-27 2020-06-27 Outpatient R ALEXA [facility] [id number] Univers 16:00:00 16:00:00 MERCEDEZ wilkinson [facility] 2020-06-21 2020-06-21 Outpatient R ANAMIKA [facility] [id number] Univers 00:00:00 00:00:00 MARCELINA bell [facility] 2020-06-21 2020-06-21 Outpatient R ANAMIKA [facility] [id number] Univers 00:00:00 00:00:00 MARCELINA saeed [facility] 2020-05-03 2020-05-03 Outpatient R ANAMIKA [facility] [id number] Univers 14:30:00 14:30:00 MARCELINA [facility] Results Test Description Test Time Test Comments [...] code = 3257) . Negative - Negative [facility]/O SPECIFIC [id number] 20:55:00 Test Item Value Reference Range Interpretation [...] code = 3257) . Negative - Negative [facility]
[2023-01-09] MEDS ORDERED: KETOROLAC 30 MG/ML INJ ONE (08:26)
[2023-01-09] MEDS ORDERED: DIAZEPAM 5 MG TABLET ONE (08:26)
--- NOTE | 2023-01-09 09:23 | RAD REPORT ---
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 There is moderate subacro mial outlet narrowing which could indicate underlying rotator cuff tear. No acute fracture or disloca tion. Consider nonemergent MRI shoulder follow-up.
--- NOTE | 2023-01-09 09:38 | ER ---
Nurse's Notes [facility] [place] Name: Mitali Law Age: 47 yrs Sex: Female : 1975 Arrival Date: 01/09/2023 Time: 07:58 Bed 15 Private MD: Diagnosis: Bursitis of right shoulder Presentation: 01/09 08:14 Chief complaint: Patient states: R shoulder pain for 1 week. No trauma. Coronavirus ll1 screen: Vaccine status: Patient reports receiving the 2nd dose of the covid vaccine. Client denies travel out of the [place] in the last 14 days. At this time, the client does not indicate any symptoms associated with coronavirus-19. Ebola Screen: Patient denies travel to an Ebola-affected area in the 21 days before illness onset. Initial Sepsis Screen: Does the patient meet any 2 criteria? No. Patient's initial sepsis screen is negative. Does the patient have a suspected source of infection? Yes: Bone or joint infection. Risk Assessment: Do you want to hurt yourself or someone else? Patient reports no desire to harm self or others. Onset of symptoms was January 02, 2023. 08:14 Method Of Arrival: Ambulatory ll1 08:14 Acuity: JAIR 4 ll1 Triage Assessment: 08:15 General: Appears uncomfortable, Behavior is calm, cooperative, appropriate for age. ll1 Pain: Complains of pain in right shoulder Pain currently is 10 out of 10 on a pain scale. Quality of pain is described as aching, throbbing. Musculoskeletal: Circulation, motion, and sensation intact. Capillary refill < 3 seconds, Reports pain in right shoulder. 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 - Social history:: Smoking status: Patient denies any tobacco usage or history of. Screenin:21 [facility] [place] ED Fall Risk Assessment (Adult) History of falling in the last 3 months, mb9 including since admission No falls in past 3 months (0 pts) Confusion or Disorientation No (0 pts) Intoxicated or Sedated No (0 pts) Impaired Gait No (0 pts) Mobility Assist Device Used No (0 pt) Altered Elimination No (0 pt) Score/Fall Risk Level 0 - 2 = Low Risk Oriented to surroundings, Maintained a safe environment, Educated pt \T\ family on fall prevention, incl call for assistance when getting out of bed. Abuse screen: Denies threats or abuse. Nutritional screening: No deficits noted. Tuberculosis screening: No symptoms or risk factors identified. Assessment: 08:20 General: Appears uncomfortable, Behavior is cooperative. Pain: Complains of pain in mb9 right shoulder Pain currently is 10 out of 10 on a pain scale. Quality of pain is described as aching, throbbing, Pain began 2-3 days ago. Is continuous, Aggravated by increased activity, repositioning, weight bearing. Neuro: Saleem Agitation-Sedation Scale (RASS): 0 - Alert and Calm Level of Consciousness is awake, alert, obeys commands, Oriented to person, place, time, situation, Appropriate for age Special Trackwork Blacksmith are equal bilaterally Moves all extremities. Gait is steady, Speech is normal. Cardiovascular: Patient's skin is warm and dry. Respiratory: Airway is patent Respiratory effort is even, unlabored, Respiratory pattern is regular, symmetrical, Breath sounds are clear bilaterally. GI: Abdomen is flat, non-distended, Bowel sounds present X 4 quads. : No signs and/or symptoms were reported regarding the genitourinary system. Derm: Skin is pink, warm \T\ dry. Musculoskeletal: Range of motion: limited in right shoulder. 09:22 Reassessment: Patient and/or family updated on plan of care and expected duration. Pain mb9 level reassessed. Patient is alert, oriented x 3, equal unlabored respirations, skin warm/dry/pink. Patient states feeling better. Patient states symptoms have improved. 09:57 Reassessment: No changes from previously documented assessment. Patient and/or family mb9 updated on plan of care and expected duration. Pain level reassessed. Patient is alert, oriented x 3, equal unlabored respirations, skin warm/dry/pink. Vital Signs: 08:14 BP 140 / 92; Pulse 91; Resp 17; Temp 98.1; Pulse Ox 100% ; Weight 81.65 kg; Height 5 ll1 ft. 3 in. ; Pain 10/10; 08:48 BP 122 / 86; Pulse 84; Resp 18; Pulse Ox 97% on R/A; mb9 10:03 BP 108 / 77; Pulse 80; Resp 16; Pulse Ox 99% on R/A; mb9 08:14 Body Mass Index 31.89 (81.65 kg, 160.02 cm) ll1 08:14 Pain Scale: Adult ll1 ED Course: 08:02 Patient arrived in ED. im 08:03 Richa Hess MD is Attending Physician. cp3 08:10 Licha L[facility] F[facility]-C [facility] snw 08:12 Juanita Hicks, RN is Primary Nurse. mb9 08:14 Arm band placed on Patient placed in an exam room, on a stretcher. ll1 08:15 Triage completed. ll1 08:22 Placed in gown. Bed in low position. Call light in reach. Side rails up X 1. Client mb9 placed on continuous cardiac and pulse oximetry monitoring. NIBP monitoring applied. 08:22 No provider procedures requiring assistance completed. mb9 08:31 Shoulder Right (2 View) XRAY In Process Unspecified. EDMS 10:04 Patient did not have IV access during this emergency room visit. mb9 Administered Medications: 08:20 Drug: Ketorolac IM 30 mg IM once Route: IM; Site: right gluteus; mb9 08:48 Follow up: Response: No adverse reaction mb9 08:20 Drug: Diazepam PO 10 mg PO once Route: PO; mb9 08:47 Follow up: Response: No adverse reaction mb9 Medication: 08:22 VIS not applicable for this client. mb9 Outcome: 09:37 Discharge ordered by . snw 10:03 Discharged to home ambulatory, mb9 10:03 Condition: stable 10:03 Discharge instructions given to patient, Instructed on discharge instructions, follow up and referral plans. Demonstrated understanding of instructions, follow-up care, medications, Prescriptions given X 2, 10:04 Patient left the ED. mb9 Signatures: Dispatcher [employer] EDMS Licha Lr FNP-C FNP-Richa Booth MD MD cp3 Jose Baird RN RN 1 Juanita Hicks, RN RN mb9 Denise Mcpherson im
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
[2023-01-09 10:19] VITALS: TEMP 98.1
[2023-01-09 10:21] VITALS: BP 108/77; O2SAT 99
== END 2023-01-09 10:04 | disposition home or self-care (01) ==
LOC: ER 07:58
DX: M75.51 Bursitis of right shoulder (principal)
CPT/HCPCS: 96372; 99284

== ENCOUNTER 2023-03-18 19:27 | Emergency (ER) | payer SELFPAY ==
--- OUTSIDE RECORDS SUMMARY | 2023-03-18 19:30 | XMS REPORT | Continuity of Care Document ---
:[address] [facility] t Address [address] [facility]. [address] [place] [address] Care Team Providers Name Role Phone Marcelina Islas Primary Care Physician [phone] [email or web address] Attending Clinician Unavailable MARCELINA WILLSON Attending Clinician Unavailable DEBBY HILTON Attending Clinician Unavailable Debby Hilton MD Attending Clinician [phone] ALEX MOSLEY Attending Clinician Unavailable Alex Connors Attending Clinician QUETA BLAIR Attending Clinician Unavailable Lab, Ang-Rmchp Attending Clinician Unavailable Queta Clemente Attending Clinician Marcelina Islas Attending Clinician [phone] Doctor Unassigned, [place] Attending Clinician Unavailable Pgy3 Attending Clinician Unavailable Hortencia Ludwig MD Attending Clinician HORTENCIA LUDWIG Attending Clinician Unavailable Elodia Aguillon RN Attending Clinician Unavailable TODD SERRATO Attending Clinician Unavailable Only, Ang Db Test Attending Clinician Unavailable Todd Serrato MD Attending Clinician MERCEDEZ LIU Attending Clinician Unavailable [email or web address]_S Admitting Clinician Unavailable DEBBY HILTON Admitting Clinician Unavailable MARCELINA WILLSON Admitting Clinician Unavailable Payers Payer Name Policy Type Policy Number Effective Date Expiration Date Corbin lopez [id number] 2016 00:00:00 [facility] [id number] 2021 CHOICE 00:00:00 Problems Condition Condition Condition Status Onset Resolution Last Treating Co mments Source Name Details Category Date Date Treatment Clinician Date Heavy Heavy Disease Active Overview: Univer s menses menses 1-12 Formattin ity of 00:00: g of this [place] 00 note Medical might be Branch different from the original. Records received, see scanned records Pre-op dx- excessive and frequent menstruat ion with irregular cyclePost -op dx- not statedDia gnosis: Prolifera tive endometri umNo evidence of hyperplas ia or malignanc y Elevated Elevated Disease Active Unive rs blood blood 1-12 ity of pressure pressure 00:00: [place] reading reading 00 Medical without without Branch diagnosis diagnosis of of hypertensi hypertensi on on Other Other Disease Active Univers general general 1-13 [place] of counseling counseling [place] and advice and advice 00 Wy dical for for Branch contracept contracept shahla shahla management management Over Over Disease Active Univers weight weight 1-13 ity of 00:00: [place] [address] Medical Branch Vaginal Vaginal Disease Active Univers discharge discharge 1-13 ity of 00:00: [place] [address] Medical Branch Encounter Encounter Disease Active Uni vers for for 6-20 ity of screening screening 00:00: Rojelio moya mammogram mammogram 00 Medi zachery for breast for breast Br anch cancer cancer Urinary Urinary Disease Active Univers tract tract 6-20 ity of infection, infection, [place] site site 00 Medical unspecifie unspecifie Br anch d d Tobacco Tobacco Disease Active Univers use use 6-20 ity of disorder disorder 00:00: [place] [address] Medical Branch Depression Depression Disease Active U nivers , , 6-20 ity of unspecifie unspecifie [place] d d 00 Medical depression depression Br anch type type History of History of Disease Active U nivers tubal tubal - ity of ligation ligation 00:00: [address] Allergies, Adverse Reactions, Alerts Allergy Allergy Status Severity Reaction(s) Onset Inactive Treating Comm ents Source Name Type Date Date Clinician ZIPRASID DRUG Active Hallucinates 2011-04 Un myrna ONE HCL INGREDI 0-03 ity of 00:00: [place] 00 Medical Branch Ziprasid Propensi Active Hallucinatio 2011-04 Univers one Hcl ty to ns 0-03 ity of adverse 00:00: [place] reaction 00 Medical s Branch Sulfa Propensi Active Itching Univers (Sulfona ty to 906 ity of mide adverse 00:00: [place] Antibiot reaction 00 Medica l ics) s Branch SULFA Drug Active ITCHING Univers (SULFONA Class 9 ity of MIDE 00:00: [place] ANTIBIOT 00 Medical ICS) Branch Social History Social Habit Start Date Stop Date Quantity Comments Source Sexual orientation Univer sity of [facility] History of tobacco Cigarette Smoker University of use [facility] Exposure to 2022-07-13 2022-07-23 Not sure University SARS-CoV-2 (event) 00:00:00 21:06:00 [facility] Alcohol intake 2021-05-28 2021-05-28 Current University of 00:00:00 00:00:00 non-drinker of [facility] alcohol [place] (finding) History of Social 2021-05-02 2021-05-02 Univers ity of function 00:00:00 00:00:00 [facility] Tobacco use and 2020-05-03 2020-05-03 Smokeless Universit y of exposure 00:00:00 00:00:00 tobacco non-user [facility] dical [place] Tobacco Comment 2016-10-08 2016-10-08 smokes 2 x per Unive rsity of 00:00:00 00:00:00 day [facility] Sex Ass[birth year] Universit y of 00:00:00 00:00:00 [facility] Smoking Status Start Date Stop Date Source Ex-smoker 2020-05-03 00:00:00 2020-05-03 00:00:00 [facility] Medical Branch Medications Ordered Filled Start Stop Current Ordering Indication Dosage Frequency Signature Comments Components Source Medication Medication Date Date Medication? Clinician (SIG) Name Name traMADoL 2022- No 50mg 50 mg, Univer s (ULTRAM) 01-12 Oral, ONCE ity of tablet 50 21:00: 20:51 NOW, 1 [place] mg 00 :00 dose, On Medical [place] 01/12/23 at 1600, Routine ketorolac 2022- No 30mg 30 mg, Unive rs (TORADOL) 01-12 Intramuscu ity of injection 20:15: 19:48 lar, ONCE, [place] 30 mg 00 :00 1 dose, On Medical [place] Branch 01/12/23 at 1515, Routine traMADoL 50 2022- Yes [id number] 50mg Take 1 Uni vers mg tablet 01-12 tablet by ity of 00:00: 04:59 mouth [place] 00 :00 every 6 Medical (six) Branch hours as needed for Pain (scale 4-6) for up to 7 days. Indication s: acute pain Yes Take by [facility] 105-iron-fo 7-05 mouth. ity of lic ac-dha 13:52: [place] 30 mg iron- 46 Medical 1.4 mg-300 Branch mg Cmpk Yes Take by [facility] 105-iron-fo 7-05 mouth. ity of lic ac-dha 13:52: [place] 30 mg iron- 46 Medical 1.4 mg-300 Branch mg Cmpk Yes Take by [facility] 105-iron-fo 7-05 mouth. ity of lic ac-dha 13:52: [place] 30 mg iron- 46 Medical 1.4 mg-300 Branch mg Cmpk Yes Take by [facility] 105-iron-fo 7-05 mouth. ity of lic ac-dha 13:52: [place] 30 mg iron- 46 Medical 1.4 mg-300 Branch mg Cmpk Yes Take by [facility] 105-iron-fo 7-05 mouth. ity of lic ac-dha 13:52: [place] 30 mg iron- 46 Medical 1.4 mg-300 Branch mg Cmpk Yes [facility]05 mouth. ity of lic ac-dha 13:52: [place] 30 mg iron- 46 Medical 1.4 mg-300 Branch mg Cmpk Nitrofurant Yes [id number] 100mg Take 1 Univers oin&Nit. 7-05 capsule by ity o f [place] 00:00: mouth [place] (MACROBID) 00 (two) Medical 100 mg times Branch capsule daily. Nitrofurant Yes [id number] 100mg Take 1 Univers oin&Nit. 7-05 capsule by ity o f Mac[place]ryst 00:00: mouth 2 [place] (MACROBID) 00 (two) Medical 100 mg times Branch capsule daily. Nitrofurant Yes [id number] 100mg Take 1 Univers oin&Nit. 7-05 capsule by ity o f [place] 00:00: mouth [place] (MACROBID) 00 (two) Medical 100 mg times Branch capsule daily. Nitrofurant Yes [id number] 100mg Take 1 Univers oin&Nit. 7-05 capsule by ity o f Mac[place]ryst 00:00: mouth 2 [place] (MACROBID) 00 (two) Medical 100 mg times Branch capsule daily. Nitrofurant Yes [id number] 100mg Take 1 Univers oin&Nit. 7-05 capsule by ity o f Mac[place]ryst 00:00: mouth [place] (MACROBID) 00 (two) Medical 100 mg times Branch capsule daily. norethindro Yes [id number] 1{tbl} Take 1 Univers ne 0.35 mg 2-07 tablet by ity of tablet 00:00: mouth [place] 00 daily. Medical Branch ferrous Yes [id number] 325mg Take 1 Un myrna sulfate 325 2-07 tablet by ity of mg (65 mg 00:00: mouth 2 [place] iron) 00 (two) Medical tablet times Branch daily. norethindro Yes [id number] 1{tbl} Take 1 Univers ne 0.35 mg 2-07 tablet by ity of tablet 00:00: mouth [place] 00 daily. Medical Branch ferrous Yes [id number] 325mg Take 1 Un myrna sulfate 325 2-07 tablet by ity of mg (65 mg 00:00: mouth 2 [place] iron) 00 (two) Medical tablet times Branch daily. norethindro Yes [id number] 1{tbl} Take 1 Univers ne 0.35 mg 2-07 tablet by ity of tablet 00:00: mouth [place] 00 daily. Medical Branch ferrous Yes [id number] 325mg Take 1 Un myrna sulfate 325 2-07 tablet by ity of mg (65 mg 00:00: mouth 2 [place] iron) 00 (two) Medical tablet times Branch daily. norethindro Yes [id number] 1{tbl} Take 1 Univers ne 0.35 mg 2-07 tablet by ity of tablet 00:00: mouth [place] 00 daily. Medical Branch ferrous Yes [id number] 325mg Take 1 Un myrna sulfate 325 2-07 tablet by ity of mg (65 mg 00:00: mouth 2 [place] iron) 00 (two) Medical tablet times Branch daily. norethindro Yes [id number] 1{tbl} Take 1 Univers ne 0.35 mg 2-07 tablet by ity of tablet 00:00: mouth [place] 00 daily. Medical Branch ferrous Yes [id number] 325mg Take 1 Un myrna sulfate 325 2-07 tablet by ity of mg (65 mg 00:00: mouth 2 [place] iron) 00 (two) Medical tablet times Branch daily. norethindro Yes [id number] 1{tbl} Take 1 Univers ne 0.35 mg 2-07 tablet by ity of tablet 00:00: mouth [place] 00 daily. Medical Branch ferrous Yes [id number] 325mg Take 1 Un myrna sulfate 325 2-07 tablet by ity of mg (65 mg 00:00: mouth 2 [place] iron) 00 (two) Medical tablet times Branch daily. Norethindro Yes [id number] 1{tbl} Take 1 Univers ne 3-09 tablet by ity of Acet-Ethiny 00:00: mouth [place] l Est 00 daily. Medical (LOESTRIN Branch 1.530, 21,) 1.5-30 mg-mcg per tablet Norethindro Yes [id number] 1{tbl} Take 1 Univers ne 3-09 tablet by ity of Acet-Ethiny 00:00: mouth [place] l Est 00 daily. Medical (LOESTRIN Branch , ,) 1.5-30 mg-mcg per tablet Norethindro 2021-0 Yes [id number] 1{tbl} Take 1 Univers ne 3-09 tablet by ity of Acet-Ethiny 00:00: mouth [place] l Est 00 daily. Medical (LOESTRIN Branch , ,) 1.5-30 mg-mcg per tablet Norethindro 2021-0 Yes [id number] 1{tbl} Take 1 Univers ne 3-09 tablet by ity of Acet-Ethiny 00:00: mouth [place] l Est 00 daily. Medical (LOESTRIN Branch , ,) 1.5-30 mg-mcg per tablet Norethindro 2021-0 Yes [id number] 1{tbl} Take 1 Univers ne 3-09 tablet by ity of Acet-Ethiny 00:00: mouth [place] l Est 00 daily. Medical (LOESTRIN Branch , ,) 1.5-30 mg-mcg per tablet Norethindro 2021-0 Yes [id number] 1{tbl} Take 1 Univers ne 3-09 tablet by ity of Acet-Ethiny 00:00: mouth [place] l Est 00 daily. Medical (LOESTRIN Branch , ,) 1.5-30 mg-mcg per tablet Immunizations Ordered Filled Date Status Comments Source Immunization Name Immunization Name Td 2010-06-03 Completed [facility] 00:00:00 [facility] Td 2010-06-03 Completed [facility] 00:00:00 [facility] Td 2010-06-03 Completed [facility] 00:00:00 [facility] TD, NOS 2010-06-03 Completed [facility] 00:00:00 [facility] TD, NOS Unknown Completed [facility] TD, NOS Unknown Completed [facility] Vital Signs Vital Name Observation Time Observation Value Comments Source Systolic blood 2023-01-12 19:16:13 134 mm[Hg] Univer sity of pressure [facility] Diastolic blood 2023-01-12 19:16:13 108 mm[Hg] Unive rsity of pressure [place] [facility] Heart rate 2023-01-12 19:16:13 100 /min [facility] ty [facility] [place] [facility] Body temperature 2023-01-12 19:16:13 36.78 Lois Univ ersity of [place] [facility] Respiratory rate 2023-01-12 19:16:13 16 /min Univ ersity of [place] [facility] Body height 2023-01-12 19:15:00 160 cm Universi ty [facility] [place] [facility] Body weight 2023-01-12 19:15:00 84.55 kg Universi ty [facility] [place] [facility] BMI 2023-01-12 19:15:00 33.02 kg/m2 Universi ty [facility] [place] [facility] Oxygen saturation in 2023-01-12 19:15:00 100 /min University of Arterial blood by [facility] Pulse oximetry Branch Systolic blood 2022-07-24 02:06:00 159 mm[Hg] Univer sity of pressure [place] [facility] Diastolic blood 2022-07-24 02:06:00 106 mm[Hg] Unive rsity of pressure [place] [facility] Heart rate 2022-07-24 02:06:00 90 /min Universi ty [facility] [place] [facility] Body temperature 2022-07-24 02:06:00 36.61 Lois Univ ersity of [place] [facility] Respiratory rate 2022-07-24 02:06:00 16 /min Univ ersity of [place] [facility] Body height 2022-07-24 02:06:00 160 cm [facility]i ty [facility] [place] [facility] Body weight 2022-07-24 02:06:00 81.647 kg [facility]i ty [facility] [place] [facility] BMI 2022-07-24 02:06:00 31.89 kg/m2 Universi ty [facility] [place] [facility] Oxygen saturation in 2022-07-24 02:06:00 100 /min University of Arterial blood by [place] Stroho zachery Pulse oximetry Branch Systolic blood 2021-12-04 20:55:00 135 mm[Hg] Univer sity of pressure [place] [facility] Diastolic blood 2021-12-04 20:55:00 92 mm[Hg] Unive rsity of pressure [place] [facility] Heart rate 2021-12-04 20:55:00 86 /min Universi ty [facility] [place] [facility] Body temperature 2021-12-04 20:54:00 36.56 Lois [facility] Respiratory rate 2021-12-04 20:54:00 20 /min [facility] Body height 2021-12-04 20:54:00 160 cm [facility] Body weight 2021-12-04 20:54:00 84.567 kg [facility] BMI 2021-12-04 20:54:00 33.03 kg/m2 [facility] Procedures Procedure Date / Time Performed Performing Clinician [facility] e ASSIGNMENT OF BENEFITS 2023-01-12 20:25:03 Doctor Unassigned, No [facility] Name [facility] POCT TEST 2023-01-12 19:47:00 [facility] 2023-01-12 19:06:32 Doctor [facility]assigned, [facility] [place] [facility] AND Name Medical Branch TREATMENT NOTICE OF PRIVACY 2022-07-24 01:52:33 Doctor Unassigned, No [facility] CONSENT/REFUSAL FOR 2022-07-24 01:52:12 Doctor Unassigned, [facility] [place] [facility] DIAGNOSIS AND Name Medical Branch TREATMENT POCT URINALYSIS W/O 2021-12-04 20:55:00 Marcelina Willson Uni versity of [place] SPECIFIC GRAVITY [facility] Encounters Start End Encounter Admission Attending Care Care Encounter Source Date/Time Date/Time Type Type Clinicians Facility Department ID 2023-02-16 2023-02-16 Outpatient [id number] PRIV PRIV [id number] [facility] 00:00:00 00:00:00 [id number] Medic al 2023-01-15 2023-01-15 Outpatient R ANAMIKA, [facility] [id number] Univers 13:30:00 13:30:00 MARCELINA bell [facility] 2023-01-12 2023-01-12 Emergency X AUFDERHEIDE [facility] ERT [id number] Univers 14:17:00 16:11:00 DEBBY [facility] 2023-01-12 2023-01-12 [facility] [id number] Univers 14:17:00 16:11:00 , Debby PENA [id number] i ty of Tana ELIDIA [id number] [facility] [id number] [address] 2022-07-23 2022-07-23 Emergency [facility] E[facility] [id number] Univers 21:09:00 22:34:00 JASKEYLA it y of [facility] 2022-07-23 2022-07-23 [facility] [id number] Univers 21:09:00 22:34:00 Alex PENA [id number] ity [facility] [id number] [facility] [id number] [address] 2022-04-22 2022-04-22 Outpatient R ANAMIKA [facility] [id number] Univers 13:15:00 13:15:00 MARCELINA ity o [facility] 2021-12-05 2021-12-05 Outpatient R [facility] [id number] Univers 13:30:00 13:30:00 ity of [facility] 2021-12-05 2021-12-05 Outpatient R JOHNNIE [facility] [id number] Univers 13:30:00 13:30:00 QUETA wilkinson o [facility] 2021-12-05 2021-12-05 Public Works Director Lab, Ang-Rmchp [facility] [id number]. [id number] Univers 13:30:00 13:30:00 Visit Queta Blair R PREPARATION SUPERVISOR [id number] ity [facility] [id number] [place] as MATERNAL [id number] Med ical & CHILD [address] [place] [address] 2021-12-04 2021-12-04 Outpatient R JOHNNIE [facility] [id number] Univers 15:30:00 16:27:05 QUETA wilkinson o f [facility] 2021-12-04 2021-12-04 Office Johnnie [facility] [id number] Univers 15:30:00 16:27:05 Visit Queta R PREPARATION SUPERVISOR [id number] ity of REGIONAL [id number] [place] as MATERNAL [id number] [facility] & CHILD [address] [place] [address] 2021-12-04 2021-12-04 Outpatient R BLAIR, [facility] [id number] Univers 15:30:00 16:27:05 HOLLINDA ity o [facility] 2021-10-23 2021-10-23 Outpatient R ANAMIKA, [facility] [id number] Univers 13:30:00 14:13:37 MARCELINA ity o [facility] 2021-10-23 2021-10-23 [facility] [id number] Univers 13:30:00 14:13:37 Visit Marcelina C PREPARATION SUPERVISOR [id number] ity of REGIONAL [id number] [place] as MATERNAL [id number] [facility] & CHILD [address] [place] [address] 2021-10-19 2021-10-19 [facility] [id number] Univers 00:00:00 00:00:00 Marcelina C PREPARATION SUPERVISOR [id number] ity of REGIONAL [id number] [place] MATERNAL [id number] [facility] & [address] 2021-10-01 2021-10-01 Outpatient R AKINSIPE, [facility] [id number] Univers 15:00:00 15:00:00 MARCELINA ity o [facility] 2021-10-01 2021-10-01 Outpatient R AKINSIPE, [facility] [id number] Univers 15:00:00 15:00:00 MARCELINA ity o f [facility] 2021-10-01 2021-10-01 Outpatient R AKINSIPE, [facility] [id number] Univers 15:00:00 15:00:00 MARCELINA ity o [facility] 2021-10-01 2021-10-01 Outpatient R IRENESIPE, [facility] [id number] Univers 15:00:00 15:00:00 MARCELINA de lunay o f [facility] 2021-08-10 2021-08-10 Telephone [facility] [id number] Univers 00:00:00 00:00:00 Marcelina Hollis PREPARATION SUPERVISOR [id number] ity of [facility] [id number] [place] as MATERNAL [id number] [facility] & CHILD [address] [place] [address] 2021-08-08 2021-08-08 [facility] [id number] Univers 14:45:00 15:54:48 MARCELINA ity o [facility] 2021-08-08 2021-08-08 Office [facility] [id number] Univers 14:45:00 15:54:48 Visit Marcelina Hollis PREPARATION SUPERVISOR [id number] ity of [facility] [id number] [place] MATERNAL [id number] [facility] & [address] 2021-06-26 2021-06-26 Outpatient R AKINPE, [facility] [id number] Univers 06:35:31 23:59:00 MARCELINAJOSE wilkinson o [facility] 2021-06-26 2021-06-26 [facility] [id number] Univers 06:35:31 23:59:00 Encounter Marcelina Hollis SPECIALTY [id number] ity of C[id number] [place] AT [id number] Wy raudel [address] 2021-06-26 2021-06-26 Outpatient R AKINSIPE, [facility] [id number] Univers 00:00:00 00:00:00 MARCELINA wilkinson o [facility] 2021-06-26 2021-06-26 Outpatient R AKINSIPE, [facility] [id number] Univers 00:00:00 00:00:00 MARCELINA calixtoy o [facility] 2021-06-05 2021-06-05 Lucio BERNARDO [id number] Univers 00:00:00 00:00:00 Only Unassigned, LONI [id number] ity of [place] [facility] [id number] [place] as [id number] [facility] 009 Branch 2021-06-04 2021-06-04 [facility] [id number] Univers 00:00:00 00:00:00 Secure Msg Marcelina C PREPARATION SUPERVISOR [id number] ity of [facility] [id number] [place] as MATERNAL [id number] Med ical & CHILD [address] [place] [address] 2021-05-28 2021-05-28 Office Pgy3 UNIVERSIT [id number] Univers 14:30:00 16:27:34 Visit Hortencia Ludwig [facility] [id number] ity of [facility] [id number] [place] [id number] [facility] 113 Branch 2021-05-28 2021-05-28 Outpatient R MARCO ANTONIO [facility] [id number] Univers 14:30:00 16:27:34 [facility] 2021-05-28 2021-05-28 [facility] [id number] Univers 14:30:00 16:27:34 [facility] 2021-05-28 2021-05-28 [facility] [id number] Univers 14:30:00 16:27:34 [facility] 2021-05-28 2021-05-28 Outpatient R MARCO ANTONIO [facility] [id number] Univers 14:30:00 14:30:00 [facility] 2021-05-16 2021-05-16 Telephone [place] [id number] Univers 00:00:00 00:00:00 Elodia IVEY [id number] [facility] [id number] [place] as [id number] [facility] 019 Branch 2021-05-15 2021-05-15 [facility] [id number] Univers 20:15:00 20:30:38 [facility]D [facility] 2021-05-15 2021-05-15 [facility] [id number] Univers 20:15:00 20:30:38 TODD [facility] 2021-05-15 2021-05-15 Laboratory Only, Ang Db Test [facility] [id number] Univers 20:15:00 20:30:00 Only Rojelio Todd [id number] [facility] [id number] [place] as ELLIOT?BLEA [id number] [address] MEDICAL OFFICE [facility] 2021-05-02 2021-05-02 Outpatient R IRENEBANNER [id number] Univers 14:15:00 15:54:46 MARCELINA wilkinson [facility] 2021-05-02 2021-05-02 Office [facility] [id number] Univers 14:15:00 15:54:46 Visit Marcelina Hollis PREPARATION SUPERVISOR [id number] ity [facility] [id number] [place] as MATERNAL [id number] [facility] ical & CHILD [address] [place] [address] 2021-05-02 2021-05-02 Outpatient R IRENEBANNER [id number] Univers 14:15:00 14:15:00 MARCELINA wilkinson o [facility] 2021-05-02 2021-05-02 Orders Doctor BERNARDO [id number] Univers 00:00:00 00:00:00 Only Unassigned, LONI 350.1.13.10 ity of [facility] [id number] [place] as [id number] [address] 2020-11-21 2020-11-21 [facility] [id number] Univers 14:15:00 14:15:00 MARCELINA wilkinson o [facility] 2020-11-21 2020-11-21 Outpatient R AKINBANNER [id number] Univers 14:15:00 14:15:00 MARCELINA wilkinson o [facility] 2020-09-27 2020-09-27 Outpatient R ANAMIKA, [facility] [id number] Univers 13:15:00 13:15:00 MARCELINA wilkinson o [facility] 2020-09-27 2020-09-27 Outpatient R ANAMIKA, [facility] [id number] Univers 13:15:00 13:15:00 MARCELINA saeed [facility] 2020-06-27 2020-06-27 Outpatient R ALEXA, [facility] [id number] Univers 16:00:00 16:00:00 MERCEDEZ wilkinson [facility] 2020-06-21 2020-06-21 Outpatient R ANAMIKA, [facility] [id number] Univers 00:00:00 00:00:00 MARCELINA saeed [facility] 2020-06-21 2020-06-21 Outpatient R ANAMIKA, [facility] [id number] Univers 00:00:00 00:00:00 MARCELINA saeed [facility] 2020-05-03 2020-05-03 Outpatient R ANAMIKA, [facility] [id number] Univers 14:30:00 14:30:00 MARCELINA [facility] Results Test Description Test Time Test Comments Results Result Comments Source POCT TEST 2023-01-12 19:47:00 Test Item Value Reference Range Interpretation Comme nts POCT PREG (test code = 1605) Negative On board controls acceptable with C Line (test code = 3574) Yes POCT PREG LOT # (test code = 3575) [id number] POCT PREG TEST DATE (test code = 3576) 06-18-2024 Lab Interpretation (test code = 52667-9) [facility] SPECIFIC [id number] 20:55:00 Test Item Value Reference Range Interpretation [...] code = 3257) . [facility] - [facility] [id number] 20:55:00 Test Item Value Reference Range Interpretation [...] code = 3257) . Negative - Negative [facility]
--- NOTE | 2023-03-18 20:41 | RAD REPORT ---
EXAM DESCRIPTION: Jeb King (2 Views)03/18/2023 8:28 pm CLINICAL HISTORY: Cough COMPARISON: None FINDINGS: The lungs appear clear of acute infiltrate. The heart is normal size IMPRESSION: No acute abnormalities displayed
[2023-03-18] MEDS ORDERED: predniSONE 20 MG TAB ONE (21:18)
--- NOTE | 2023-03-18 21:46 | EDPHYS ---
Physician Documentation [facility] Name: Mitali Law Age: 47 yrs Sex: Female : 1975 Arrival Date: 03/18/2023 Time: 19:27 Bed IW2 Private MD: ED Physician Rodríguez Berg HPI: 03/18 20:13 This 47 yrs old Female presents to ER via Ambulatory with complaints of Flu Symptoms. rt 20:13 Patient presents to the ED with 2 weeks of cough, congestion, rhinorrhea, intermittent rt shortness of breath. Denies other acute complaints at this time, symptoms are mild in severity, no other aggravating elevating factors.. 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 - Social history:: Smoking status: Patient denies any tobacco usage or history of. Patient/guardian denies using alcohol, street drugs. - Family history:: not pertinent. ROS: 20:13 Constitutional: Negative for fever, chills, and weight loss, Cardiovascular: Negative rt for chest pain, palpitations, and edema, Abdomen/GI: Negative for abdominal pain, nausea, vomiting, diarrhea, and constipation, MS/Extremity: Negative for injury and deformity, Skin: Negative for injury, rash, and discoloration, Neuro: Negative for headache, weakness, numbness, tingling, and seizure, Psych: Negative for depression, anxiety, suicide ideation, homicidal ideation, and hallucinations, 20:13 ENT: Positive for rhinorrhea, Negative for ear pain, 20:13 Respiratory: Positive for cough, wheezing, Exam: 20:13 Constitutional: This is a well developed, well nourished patient who is awake, alert, rt and in no acute distress. Head/Face: Normocephalic, atraumatic. Chest/axilla: Normal chest wall appearance and motion. Nontender with no deformity. No lesions are appreciated. Cardiovascular: Regular rate and rhythm with a normal S1 and S2. No gallops, murmurs, or rubs. Normal PMI, no JVD. No pulse deficits. Respiratory: Lungs have equal breath sounds bilaterally, clear to auscultation and percussion. No rales, rhonchi or wheezes noted. No increased work of breathing, no retractions or nasal flaring. Abdomen/GI: Soft, non-tender, with normal bowel sounds. No distension or tympany. No guarding or rebound. No evidence of tenderness throughout. Skin: Warm, dry with normal turgor. Normal color with no rashes, no lesions, and no evidence of cellulitis. MS/ Extremity: Pulses equal, no cyanosis. Neurovascular intact. Full, normal range of motion. Neuro: Awake and alert, GCS 15, oriented to person, place, time, and situation. Cranial nerves II-XII grossly intact. Motor strength 5/5 in all extremities. Sensory grossly intact. Cerebellar exam normal. Normal gait. Psych: Awake, alert, with orientation to person, place and time. Behavior, mood, and affect are within normal limits. Vital Signs: 20:10 BP 133 / 94; Pulse 77; Resp 18 S; Temp 98.3(O); Pulse Ox 98% on R/A; Weight 81.65 kg lg3 (R); Height 5 ft. 3 in. (R); 20:10 Body Mass Index 31.89 (81.65 kg, 160.02 cm) lg3 MDM: 20:08 Patient medically screened. rt 21:48 Differential Diagnosis Bronchitis, pneumonia, pneumothorax,. Data reviewed: vital rt signs, nurses notes, radiologic studies. Independent interpretation of the following test(s) in the Emergency Department X-Ray: My interpretation is No consolidation seen on interpretation of x-ray images. Counseling: I had a detailed discussion with the patient and/or guardian regarding the historical points, exam findings, and any diagnostic results supporting the discharge/admit diagnosis, radiology results, the need for outpatient follow up. 03/18 20:09 Order name: Chest Pa And Lat (2 Views) XRAY; Complete Time: 20:43 rt Administered Medications: 21:15 Drug: predniSONE PO 40 mg PO once Route: PO; lg3 21:57 Follow up: Response: No adverse reaction as6 Disposition Summary: 03/18/23 21:45 Discharge Ordered Notes: Location: Home rt Problem: an ongoing problem rt Symptoms: are unchanged rt Condition: Stable rt Diagnosis - Acute bronchitis, unspecified rt Followup: rt - With: Private Physician - When: 2 - 3 days - Reason: Discharge Instructions: - Discharge Summary Sheet rt - Acute Bronchitis, Adult rt Forms: - Medication Reconciliation Form rt - Thank You Letter rt - Antibiotic Education rt - Prescription Opioid Use rt - Patient Portal Instructions rt - Leadership Thank You Letter rt Prescriptions: - albuterol sulfate 90 mcg/actuation Inhalation HFA Aerosol Inhaler - inhale 3 inhalation INHALATION route every 4 hours as needed for shortness of rt breath or wheezing; 2 Each; Refills: 0, Product Selection Permitted - Prednisone 20 mg Oral Tablet - take 2 tablets ORAL route once daily for 5 days; 10 tablet; Refills: 0, Product rt Selection Permitted Signatures: Dispatcher [employer] Francia Grimaldo RN RN lg3 Rodríguez Berg MD MD rt Markus Yanez RN as6
--- NOTE | 2023-03-18 21:46 | ER ---
Nurse's Notes [facility] Name: Mitali Law Age: 47 yrs Sex: Female : 1975 Arrival Date: 03/18/2023 Time: 19:27 Bed IW2 Private MD: Diagnosis: Acute bronchitis, unspecified Presentation: 03/18 20:10 Chief complaint: Patient states: cough, congestion, runny nose X2 weeks. Coronavirus lg3 screen: Client denies travel out of the [place] in the last 14 days. Client presents with at least one sign or symptom that may indicate coronavirus-19. Standard/surgical mask placed on the client. Ebola Screen: No symptoms or risks identified at this time. Initial Sepsis Screen: Does the patient meet any 2 criteria? No. Patient's initial sepsis screen is negative. Does the patient have a suspected source of infection? No. Patient's initial sepsis screen is negative. Risk Assessment: Do you want to hurt yourself or someone else? Patient reports no desire to harm self or others. Onset of symptoms is unknown. 20:10 Method Of Arrival: Ambulatory lg3 20:10 Acuity: JAIR 3 lg3 Triage Assessment: 20:11 General: Appears in no apparent distress. uncomfortable, Behavior is calm, cooperative. lg3 Pain: Complains of pain in throat. EENT: No deficits noted. Reports nasal congestion nasal discharge. Neuro: No deficits noted. Saleem Agitation-Sedation Scale (RASS): 0 - Alert and Calm Level of Consciousness is awake, alert, obeys commands, Oriented to person, place, time, situation. Cardiovascular: No deficits noted. Denies chest pain, Capillary refill < 3 seconds Clubbing of nail beds is absent JVD is absent Patient's skin is warm and dry. Respiratory: No deficits noted. Reports shortness of breath cough that is Airway is patent Respiratory effort is even, unlabored, Respiratory pattern is regular, symmetrical. GI: No deficits noted. No signs and/or symptoms were reported involving the gastrointestinal system. : No deficits noted. No signs and/or symptoms were reported regarding the genitourinary system. Derm: No deficits noted. No signs and/or symptoms reported regarding the dermatologic system. Skin is intact, is healthy with good turgor, Skin is dry, Skin is normal, Skin temperature is warm. Musculoskeletal: No deficits noted. No signs and/or symptoms reported regarding the musculoskeletal system. Circulation, motion, and sensation intact. Range of motion: intact in all extremities. 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 - Social history:: Smoking status: Patient denies any tobacco usage or history of. Patient/guardian denies using alcohol, street drugs. - Family history:: not pertinent. Screenin:57 [facility] ED Fall Risk Assessment (Adult) Score/Fall Risk Level 0 - 2 = Low Risk. Abuse as6 screen: Denies threats or abuse. Denies injuries from another. Nutritional screening: No deficits noted. Tuberculosis screening: No symptoms or risk factors identified. Vital Signs: 20:10 BP 133 / 94; Pulse 77; Resp 18 S; Temp 98.3(O); Pulse Ox 98% on R/A; Weight 81.65 kg lg3 (R); Height 5 ft. 3 in. (R); 20:10 Body Mass Index 31.89 (81.65 kg, 160.02 cm) lg3 ED Course: 19:36 Patient arrived in ED. kj1 19:58 Rodríguez Berg MD is Attending Physician. rt 20:11 Triage completed. lg3 20:11 Arm band placed on right wrist. lg3 20:29 Chest Pa And Lat (2 Views) XRAY In Process Unspecified. EDMS 21:57 Bed in low position. Call light in reach. Provided Education on: follow up, rx teaching.as6 21:57 No provider procedures requiring assistance completed. Patient did not have IV access as6 during this emergency room visit. Administered Medications: 21:15 Drug: predniSONE PO 40 mg PO once Route: PO; lg3 21:57 Follow up: Response: No adverse reaction as6 Medication: 21:58 VIS not applicable for this client. as6 Outcome: 21:45 Discharge ordered by . rt 21:57 Discharged to home ambulatory, with family, as6 21:57 Condition: stable 21:57 Discharge instructions given to patient, Instructed on discharge instructions, follow up and referral plans. medication usage, Demonstrated understanding of instructions, follow-up care, medications, Prescriptions given X 2, 21:58 Patient left the ED. as6 Signatures: Dispatcher [employer] EDNY Kyle Barrosdis kj1 Francia Koch RN RN lg3 Markus Yanez RN RN as6 Rodríguez Berg MD MD rt
[2023-03-18 22:26] VITALS: BP 133/94; TEMP 98.3; O2SAT 98
== END 2023-03-18 21:58 | disposition home or self-care (01) ==
LOC: ER 19:27
DX: J20.9 Acute bronchitis, unspecified (principal)
CPT/HCPCS: 71046; 99283; J7512

== ENCOUNTER 2023-03-28 14:09 | Emergency (ER) | payer SELFPAY ==
--- OUTSIDE RECORDS SUMMARY | 2023-03-28 14:13 | XMS REPORT | Continuity of Care Document ---
Author Name Unknown Address [address] [facility] [address] [place] [address] [facility] thconnect Address [address] [facility] [address] [place] [address] Care Team Providers Care Cafeteria Monitor Name Role Phone Marcelina Islas Primary Care Physicia n [email or web address]_S Attending Clinician UnavailMARCELINA Morgan Attending Clinician Unavail able DEBBY HILTON Attending Clinician Unav ailable Debby Hilton MD Attending Clinician + ALEX MOSLEY Attending Clinician Unavaila Alex Mcmillan Attending Clinician + [phone] QUETA BLAIR Attending Clinician Unavailab le Lab, Ang-Rmchp Attending Clinician Unavailable Queta Clemente Attending Clinician [phone] Marcelina Islas Attending Clinician + Doctor Unassigned, [place] Attending Clinician U navailable Pgy3 Attending Clinician Unavailable Hortencia Ludwig MD Attending Clinician [phone] LUDWIG, HORTENCIA W Attending Clinician Unavailable Pal ALVARES, Elodia Attending Clinician Unavailable TODD SERRATO Attending Clinician Unavailable Only, Ang Db Test Attending Clinician Angelique Serrato MD, Todd Attending Clinician MERCEDEZ LIU Attending Clinician Angelique choe GC_GCBZW_Kadiyala_S Admitting Clinician Unavailapolinar koo AUFDERHEJOSELYN, DEBBY WANG Admitting Clinician Unav ailable AKINSIPE, MARCELINA C Admitting Clinician Unavail able Payers Payer Name Policy Type Policy Number Effective Date Expirati on Date Source [facility] [id number] 2016 00:00:00 Inkive [id number] 2021 00:00:00 Problems Condition Name Condition Details Condition Category Status Onset Date Resolution Date Last Treatment Date Treating Clinician Comments Source Heavy menses Heavy menses Disease Active 05-02 00:00: 00 Overview: Formattin g of this note might be different from the original. Records received, see scanned records Pre-op dx- excessive and frequent menstruat ion with irregular cyclePost -op dx- not statedDia gnosis: Prolifera tive endometri umNo evidence of hyperplas ia or malignanc y General acute hospital Elevated blood pressure reading without diagnosis of hypertensi on Elevated blood pressure reading without diagnosis of hypertensi on Disease Active 05-02 00:00: 00 General acute hospital Other general counseling and advice for contracept shahla management Other general counseling and advice for contracept shahla management Disease Active 05-03 00:00: 00 General acute hospital Over weight Over weight Disease Active 05-03 00:00: 00 General acute hospital Vaginal discharge Vaginal discharge Disease Active 05-03 00:00: 00 General acute hospital Encounter for screening mammogram for breast cancer Encounter for screening mammogram for breast cancer Disease Active 10-08 00:00: 00 General acute hospital Urinary tract infection, site unspecifie d Urinary tract infection, site unspecifie d Disease Active 10-08 00:00: 00 General acute hospital Tobacco use disorder Tobacco use disorder Disease Active 10-08 00:00: 00 General acute hospital Depression , unspecifie d depression type Depression , unspecifie d depression type Disease Active 10-08 00:00: 00 General acute hospital History of tubal ligation History of tubal ligation Disease Active 10-08 00:00: 00 General acute hospital Allergies, Adverse Reactions, Alerts Allergy Name Allergy Type Status Severity Reaction(s) Onset Date Inactive Date Treating Clinician Comments Source ZIPRASID ONE HCL DRUG INGREDI Active Hallucinates 2011-04 00:00: 00 General acute hospital Ziprasid one Hcl Propensi ty to adverse reaction s Active Hallucinatio ns 2011-04 00:00: 00 General acute hospital Sulfa (Sulfona mide Antibiot ics) Propensi ty to adverse reaction s Active Itching 12-25 00:00: 00 General acute hospital SULFA (SULFONA MIDE ANTIBIOT ICS) Drug Class Active ITCHING 12-25 00:00: 00 General acute hospital Social History Social Habit Start Date Stop Date Quantity Comments [facility] of [facility] use Cigarette Smoker [facility] Exposure to SARS-CoV-2 (event) 2022-07-13 00:00:00 2022-07-23 21:06:00 Not sure [facility] Alcohol intake 2021-05-28 00:00:00 2021-05-28 00:00:00 Current non-drinker of alcohol (finding) [facility] History of Social function 2021-05-02 00:00:00 2021-05-02 00:00:00 [facility] Tobacco use and exposure 2020-05-03 00:00:00 2020-05-03 00:00:00 Smokeless tobacco non-user [facility] Tobacco Comment 2016-10-08 00:00:00 2016-10-08 00:00:00 smokes 2 x per day [facility] Sex Assigned At 1975 00:00:00 1975 00:00:00 [facility] Smoking Status Start Date Stop Date Source Ex-smoker 2020-05-03 00:00:00 2020-05-03 00:00:00 [facility] Medications Ordered Medication Name Filled Medication Name Start Date Stop Date Current Medication? Ordering Clinician Indication Dosage Frequency Signature (SIG) Comments Components Source traMADoL (ULTRAM) tablet 50 mg 01-12 21:00: 00 01-12 20:51 :00 No 50mg 50 mg, Oral, ONCE NOW, 1 dose, On 01/12/23 at 1600, Routine General acute hospital ketorolac (TORADOL) injection 30 mg 01-12 20:15: 00 01-12 19:48 :00 No 30mg 30 mg, Intramuscu lar, ONCE, 1 dose, On Fri01/12/23 at 1515, Routine General acute hospital traMADoL 50 mg tablet 01-12 00:00: 00 01-20 04:59 :00 Yes [id number] 50mg Take 1 tablet by mouth every 6 (six) hours as needed for Pain (scale 4-6) for up to 7 days. Indication s: acute pain General acute hospital 105-iron-fo lic ac-dha 30 mg iron- 1.4 mg-300 mg Cmpk 10-23 13:52: 46 Yes Take by mouth. General acute hospital 105-iron-fo lic ac-dha 30 mg iron- 1.4 mg-300 mg Cmpk 10-23 13:52: 46 Yes Take by mouth. General acute hospital 105-iron-fo lic ac-dha 30 mg iron- 1.4 mg-300 mg Cmpk 10-23 13:52: 46 Yes Take by mouth. General acute hospital 105-iron-fo lic ac-dha 30 mg iron- 1.4 mg-300 mg Cmpk 10-23 13:52: 46 Yes Take by mouth. General acute hospital 105-iron-fo lic ac-dha 30 mg iron- 1.4 mg-300 mg Cmpk 2021-0 10-23 13:52: 46 Yes Take by mouth. General acute hospital 105-iron-fo lic ac-dha 30 mg iron- 1.4 mg-300 mg Cmpk 10-23 13:52: 46 Yes Take by mouth. General acute hospital Nitrofurant oin&Nit. Macrocryst (MACROBID) 100 mg capsule 10-23 00:00: 00 Yes [id number] 100mg Take 1 capsule by mouth 2 (two) times daily. General acute hospital Nitrofurant oin&Nit. Macrocryst (MACROBID) 100 mg capsule 10-23 00:00: 00 Yes [id number] 100mg Take 1 capsule by mouth 2 (two) times daily. General acute hospital Nitrofurant oin&Nit. Macrocryst (MACROBID) 100 mg capsule 10-23 00:00: 00 Yes [id number] 100mg Take 1 capsule by mouth 2 (two) times daily. General acute hospital Nitrofurant oin&Nit. Macrocryst (MACROBID) 100 mg capsule 10-23 00:00: 00 Yes [id number] 100mg Take 1 capsule by mouth 2 (two) times daily. General acute hospital Nitrofurant oin&Nit. Macrocryst (MACROBID) 100 mg capsule 10-23 00:00: 00 Yes [id number] 100mg Take 1 capsule by mouth 2 (two) times daily. General acute hospital norethindro ne 0.35 mg tablet 05-28 00:00: 00 Yes [id number] 1{tbl} Take 1 tablet by mouth daily. General acute hospital ferrous sulfate 325 mg (65 mg iron) tablet 05-28 00:00: 00 Yes [id number] 325mg Take 1 tablet by mouth 2 (two) times daily. General acute hospital norethindro ne 0.35 mg tablet 05-28 00:00: 00 Yes [id number] 1{tbl} Take 1 tablet by mouth daily. General acute hospital ferrous sulfate 325 mg (65 mg iron) tablet 05-28 00:00: 00 Yes [id number] 325mg Take 1 tablet by mouth 2 (two) times daily. General acute hospital norethindro ne 0.35 mg tablet 2 00:00: 00 Yes [id number] 1{tbl} Take 1 tablet by mouth daily. General acute hospital ferrous sulfate 325 mg (65 mg iron) tablet 05-28 00:00: 00 Yes [id number] 325mg Take 1 tablet by mouth 2 (two) times daily. General acute hospital norethindro ne 0.35 mg tablet 05-28 00:00: 00 Yes [id number] 1{tbl} Take 1 tablet by mouth daily. General acute hospital ferrous sulfate 325 mg (65 mg iron) tablet 05-28 00:00: 00 Yes [id number] 325mg Take 1 tablet by mouth 2 (two) times daily. General acute hospital norethindro ne 0.35 mg tablet 05-28 00:00: 00 Yes [id number] 1{tbl} Take 1 tablet by mouth daily. General acute hospital ferrous sulfate 325 mg (65 mg iron) tablet 05-28 00:00: 00 Yes [id number] 325mg Take 1 tablet by mouth 2 (two) times daily. General acute hospital norethindro ne 0.35 mg tablet 05-28 00:00: 00 Yes [id number] 1{tbl} Take 1 tablet by mouth daily. General acute hospital ferrous sulfate 325 mg (65 mg iron) tablet 05-28 00:00: 00 Yes [id number] 325mg Take 1 tablet by mouth 2 (two) times daily. General acute hospital Norethindro ne Acet-Ethiny l Est (LOESTRIN 1.5, 21,) 1.5-30 mg-mcg per tablet 06-27 00:00: 00 Yes [id number] 1{tbl} Take 1 tablet by mouth daily. General acute hospital Norethindro ne Acet-Ethiny l Est (LOESTRIN 1.530, 21,) 1.5-30 mg-mcg per tablet - 00:00: 00 Yes [id number] 1{tbl} Take 1 tablet by mouth daily. General acute hospital Norethindro ne Acet-Ethiny l Est (LOESTRIN 1.5, 21,) 1.5-30 mg-mcg per tablet 06-27 00:00: 00 Yes [id number] 1{tbl} Take 1 tablet by mouth daily. General acute hospital Norethindro ne Acet-Ethiny l Est (LOESTRIN 1.5, 21,) 1.5-30 mg-mcg per tablet 06-27 00:00: 00 Yes [id number] 1{tbl} Take 1 tablet by mouth daily. General acute hospital Norethindro ne Acet-Ethiny l Est (LOESTRIN 1.5, 21,) 1.5-30 mg-mcg per tablet 06-27 00:00: 00 Yes [id number] 1{tbl} Take 1 tablet by mouth daily. General acute hospital Norethindro ne Acet-Ethiny l Est (LOESTRIN 1.5, 21,) 1.5-30 mg-mcg per tablet 06-27 00:00: 00 Yes [id number] 1{tbl} Take 1 tablet by mouth daily. General acute hospital Immunizations Ordered Immunization Name Filled Immunization Name Date Status Comments Source Td 2010-06-03 00:00:00 Completed [facility] Td 2010-06-03 00:00:00 Completed [facility] Td 2010-06-03 00:00:00 Completed [facility] TD, NOS 2010-06-03 00:00:00 Completed [facility] TD, NOS Unknown Completed [facility] TD, NOS Unknown Completed [facility] Vital Signs Vital Name Observation Time Observation Value Comments S jessica Systolic blood pressure 2023-01-12 19:16:13 134 mm[Hg] [facility] Diastolic blood pressure 2023-01-12 19:16:13 108 mm[Hg] [facility] Heart rate 2023-01-12 19:16:13 100 /min [facility] Body temperature 2023-01-12 19:16:13 36.78 Lois [facility] Respiratory rate 2023-01-12 19:16:13 16 /min [facility] Body height 2023-01-12 19:15:00 160 cm [facility] Body weight 2023-01-12 19:15:00 84.55 kg [facility] BMI 2023-01-12 19:15:00 33.02 kg/m2 [facility] Oxygen saturation in Arterial blood by Pulse oximetry 2023-01-12 19:15:00 100 /min [facility] Systolic blood pressure 2022-07-24 02:06:00 159 mm[Hg] [facility] Diastolic blood pressure 2022-07-24 02:06:00 106 mm[Hg] [facility] Heart rate 2022-07-24 02:06:00 90 /min [facility] Body temperature 2022-07-24 02:06:00 36.61 Lois [facility] Respiratory rate 2022-07-24 02:06:00 16 /min [facility] Body height 2022-07-24 02:06:00 160 cm [facility] Body weight 2022-07-24 02:06:00 81.647 kg [facility] BMI 2022-07-24 02:06:00 31.89 kg/m2 [facility] Oxygen saturation in Arterial blood by Pulse oximetry 2022-07-24 02:06:00 100 /min [facility] Systolic blood pressure 2021-12-04 20:55:00 135 mm[Hg] [facility] Diastolic blood pressure 2021-12-04 20:55:00 92 mm[Hg] [facility] Heart rate 2021-12-04 20:55:00 86 /min [facility] Body temperature 2021-12-04 20:54:00 36.56 Lois [facility] Respiratory rate 2021-12-04 20:54:00 20 /min [facility] Body height 2021-12-04 20:54:00 160 cm [facility] Body weight 2021-12-04 20:54:00 84.567 kg [facility] BMI 2021-12-04 20:54:00 33.03 kg/m2 [facility] Procedures Procedure Date / Time Performed Performing Clinicia n Source ASSIGNMENT OF BENEFITS 2023-01-12 20:25:03 Docto r Unassigned, [place] [facility] POCT TEST 2023-01-12 19:47:00 Debby Talbert [facility] CONSENT/REFUSAL FOR DIAGNOSIS AND TREATMENT 2023-01-12 19:06:32 Doctor Unassigned, [place] [facility] NOTICE OF PRIVACY PRACTICES 2022-07-24 01:52:33 Doctor Unassigned, [place] [facility] CONSENT/REFUSAL FOR DIAGNOSIS AND TREATMENT 2022-07-24 01:52:12 Doctor Unassigned, [place] [facility] POCT URINALYSIS W/O SPECIFIC GRAVITY 2021-12-04 20:55:00 Marcelina Willson [facility] Encounters Start Date/Time End Date/Time Encounter Type Admission Type Attending [facility] Facility Care Department Encounter ID Source 2023-02-16 00:00:00 2023-02-16 00:00:00 Outpatient GC_GCBZW_Ka diyala_S [facility] [id number] [facility] 2023-01-15 13:30:00 2023-01-15 13:30:00 Outpatient R MARCELINA WILLSON [facility] [id number] General acute hospital 2023-01-12 14:17:00 2023-01-12 16:11:00 Emergency X DEBBY HILTON [facility] ERT [id number] General acute hospital 2023-01-12 14:17:00 2023-01-12 16:11:00 Emergency Debby Hilton [facility] [id number] 350.1.13.10 4.2.7.2.686 [id number] General acute hospital 2022-07-23 21:09:00 2022-07-23 22:34:00 Emergency X ALEX MOSLEY [facility] ERT [id number] General acute hospital 2022-07-23 21:09:00 2022-07-23 22:34:00 Emergency Alex Mosley [facility] 1..840.114 350.1.13.10 4.2.7.2.686 [id number] General acute hospital 2022-04-22 13:15:00 2022-04-22 13:15:00 Outpatient R MARCELINA WILLSON [facility] [id number] General acute hospital 2021-12-05 13:30:00 2021-12-05 13:30:00 Outpatient R [facility] [id number] General acute hospital 2021-12-05 13:30:00 2021-12-05 13:30:00 Outpatient R QUETA BLAIR [facility] [id number] General acute hospital 2021-12-05 13:30:00 2021-12-05 13:30:00 Property Officer Visit Lab, Ang-Rmchp Queta Blair [facility] THERAPIST [facility] 1..840.114 350.1.13.10 4.2.7.2.686 [id number] General acute hospital 2021-12-04 15:30:00 2021-12-04 16:27:05 Outpatient R QUETA BLAIR [facility] [id number] General acute hospital 2021-12-04 15:30:00 2021-12-04 16:27:05 Office Visit Queta Blair [facility] THERAPIST [facility]NAL [facility]ILD [facility] 1..840.114 350.1.13.10 4.2.7.2.686 [id number] General acute hospital 2021-12-04 15:30:00 2021-12-04 16:27:05 Outpatient R QUETA BLAIR [facility] [id number] General acute hospital 2021-10-23 13:30:00 2021-10-23 14:13:37 Outpatient R MARCELINA WILLSON [facility] [id number] General acute hospital 2021-10-23 13:30:00 2021-10-23 14:13:37 Office Visit Marcelina Willson Bunyn [facility] THERAPIST [facility]ILD [facility] 1..840.114 350.1.13.10 4.2.7.2.686 [id number] General acute hospital 2021-10-19 00:00:00 2021-10-19 00:00:00 Telephone YelenamaceyMarcelina Bunny [facility] THERAPIST [facility] CHILD [facility] 1..840.114 350.1.13.10 4.2.7.2.686 [id number] General acute hospital 2021-10-01 15:00:00 2021-10-01 15:00:00 Outpatient R IRENESIPEMARCELINA [facility] [id number] General acute hospital 2021-10-01 15:00:00 2021-10-01 15:00:00 Outpatient R AKINSIPE, MARCELINA [facility] [id number] General acute hospital 2021-10-01 15:00:00 2021-10-01 15:00:00 Outpatient R IRENESIPEMARCELINA [facility] [id number] General acute hospital 2021-10-01 15:00:00 2021-10-01 15:00:00 Outpatient R IRENESIPEMARCELINA [facility] [id number] General acute hospital 2021-08-10 00:00:00 2021-08-10 00:00:00 Telephone Marcelina Willson [facility] THERAPIST [facility] CHILD [facility] 1..840.114 350.1.13.10 4.2.7.2.686 [id number] General acute hospital 2021-08-08 14:45:00 2021-08-08 15:54:48 Outpatient R MARCELINA WILLSON [facility] [id number] General acute hospital 2021-08-08 14:45:00 2021-08-08 15:54:48 Office Visit Marcelina Willson THERAPIST [facility] 1.114 350.1.13.10 4.2.7.2.686 [id number] General acute hospital 2021-06-26 06:35:31 2021-06-26 23:59:00 Outpatient R MARCELINA WILLSON [facility] [id number] General acute hospital 2021-06-26 06:35:31 2021-06-26 23:59:00 Hospital Encounter Marcelina Willson [facility] ..114 350.1.13.10 4.2.7.2.686 [id number] General acute hospital 2021-06-26 00:00:00 2021-06-26 00:00:00 Outpatient R MARCELINA WILLSON [facility] [id number] General acute hospital 2021-06-26 00:00:00 2021-06-26 00:00:00 Outpatient R MARCELINA WILLSON [facility] [id number] General acute hospital 2021-06-05 00:00:00 2021-06-05 00:00:00 Orders Only Doctor Unassigned, [place] [facility] .114 350.1.13.10 4.2.7.2.686 [id number] General acute hospital 2021-06-04 00:00:00 2021-06-04 00:00:00 Patient Secure Msg Marcelina Willson [facility] THERAPIST [facility] 1..114 350.1.13.10 4.2.7.2.686 [id number] General acute hospital 2021-05-28 14:30:00 2021-05-28 16:27:34 Office Visit Pgy3 Hortencia Ludwig [facility] .840.114 350.1.13.10 4.2.7.2.686 [id number] General acute hospital 2021-05-28 14:30:00 2021-05-28 16:27:34 Outpatient R MARCO ANTONIO [facility] [id number] General acute hospital 2021-05-28 14:30:00 2021-05-28 16:27:34 Outpatient R MARCO ANTONIO [facility] [id number] General acute hospital 2021-05-28 14:30:00 2021-05-28 16:27:34 Outpatient R MARCO ANTONIO [facility] [id number] General acute hospital 2021-05-28 14:30:00 2021-05-28 14:30:00 Outpatient R MARCO ANTONIO [facility] [id number] General acute hospital 2021-05-16 00:00:00 2021-05-16 00:00:00 Telephone Elodia Aguillon [facility] .840.114 350.1.13.10 4.2.7.2.686 [id number] General acute hospital 2021-05-15 20:15:00 2021-05-15 20:30:38 Outpatient R ROJELIO TODD [facility] [id number] General acute hospital 2021-05-15 20:15:00 2021-05-15 20:30:38 Outpatient R [facility]ELIO [facility] [id number] General acute hospital 2021-05-15 20:15:00 2021-05-15 20:30:00 Laboratory Only Only, Ang Db Test [facility] 1.840.114 350.1.13.10 4.2.7.2.686 [id number] General acute hospital 2021-05-02 14:15:00 2021-05-02 15:54:46 Outpatient R MARCELINA WILLSON [facility] [id number] General acute hospital 2021-05-02 14:15:00 2021-05-02 15:54:46 Office Visit Marcelina Willson [facility] THERAPIST [facility] 1.2.840.114 350.1.13.10 4.2.7.2.686 [id number] General acute hospital 2021-05-02 14:15:00 2021-05-02 14:15:00 Outpatient R MARCELINA WILLSON [facility] [id number] General acute hospital 2021-05-02 00:00:00 2021-05-02 00:00:00 Orders Only Doctor Unassigned, [place] [facility] 1.2.840.114 350.1.13.10 4.2.7.2.686 [id number] General acute hospital 2020-11-21 14:15:00 2020-11-21 14:15:00 Outpatient R MARCELINA WILLSON [facility] [id number] General acute hospital 2020-11-21 14:15:00 2020-11-21 14:15:00 Outpatient R MARCELINA WILLSON [facility] [id number] General acute hospital 2020-09-27 13:15:00 2020-09-27 13:15:00 Outpatient R MARCELINA WILLSON [facility] [id number] General acute hospital 2020-09-27 13:15:00 2020-09-27 13:15:00 Outpatient R MARCELINA WILLSON [facility] [id number] General acute hospital 2020-06-27 16:00:00 2020-06-27 16:00:00 Outpatient R MERCEDEZ LIU [facility] [id number] General acute hospital 2020-06-21 00:00:00 2020-06-21 00:00:00 Outpatient MARCELINA MEDEIROS [facility] [id number] General acute hospital 2020-06-21 00:00:00 2020-06-21 00:00:00 Outpatient R MARCELINA WILLSON [facility] [id number] General acute hospital 2020-05-03 14:30:00 2020-05-03 14:30:00 Outpatient R MARCELINA WILLSON [facility] [id number] General acute hospital Results Test Description Test Time Test Comments Results Result Co mments Source [facility]/O SPECIFIC [id number] 20:55:00* Test Item Value Reference Range Interpretation Comme nts POCT PH U (test code = 3254) . 5-8 POCT U LEUK EST (test code = 3263) . Negative - N egative POCT U NIT (test code = 3262) . Negative - Negati ve POCT U PROT (test code = 3259) . Negative - Negat shahla POCT U GLU (test code = 3256) . Negative - Negati ve POCT U KETONE (test code = 3258) . Negative - Neg ative POCT U BLD (test code = 3257) . Negative - Negati ve [facility]/O SPECIFIC [id number] 20:55:00* Test Item Value Reference Range Interpretation Comme nts POCT PH U (test code = 3254) . 5-8 POCT U LEUK EST (test code = 3263) . Negative - N egative POCT U NIT (test code = 3262) . Negative - Negati ve POCT U PROT (test code = 3259) . Negative - Negat shahla POCT U GLU (test code = 3256) . Negative - Negati ve POCT U KETONE (test code = 3258) . Negative - Neg ative POCT U BLD (test code = 3257) . Negative - Negati ve [facility]
--- NOTE | 2023-03-28 15:15 | RAD REPORT ---
EXAM DESCRIPTION: RAD - Chest Pa And Lat (2 Views) - 03/28/2023 3:00 pm CLINICAL HISTORY: COUGH Chest pain. COMPARISON: Chest Pa And Lat (2 Views) dated 03/18/2023 FINDINGS: The lungs are clear. The heart is normal in size. No displaced fractures. IMPRESSION: No acute or concerning finding suspected.
[2023-03-28 15:25] LABS: SARS-CoV-2 Antigen Rapid Res Negative (Negative)
--- NOTE | 2023-03-28 17:28 | ER ---
Nurse's Notes [facility] [place] Name: Mitali Law Age: 47 yrs Sex: Female : 1975 Arrival Date: 03/28/2023 Time: 14:09 Bed 11 Private MD: Diagnosis: Cough;Acute pharyngitis, unspecified Presentation: 03/28 14:40 Chief complaint: Sore throat, headache, cough, congestion, and body aches x 3 weeks. hb Coronavirus screen: Client presents with at least one sign or symptom that may indicate coronavirus-19. Provider contacted for isolation considerations. Ebola Screen: No symptoms or risks identified at this time. Initial Sepsis Screen: Does the patient meet any 2 criteria? No. Patient's initial sepsis screen is negative. Does the patient have a suspected source of infection? No. Patient's initial sepsis screen is negative. Risk Assessment: Do you want to hurt yourself or someone else? Patient reports no desire to harm self or others. Onset of symptoms was March 08, 2023. 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 - Social history:: Smoking status: Patient denies any tobacco usage or history of. Screenin:45 [facility] ED Fall Risk Assessment (Adult) Score/Fall Risk Level 0 - 2 = Low Risk hb Oriented to surroundings, Maintained a safe environment. Abuse screen: Denies threats or abuse. Denies injuries from another. Nutritional screening: No deficits noted. Tuberculosis screening: No symptoms or risk factors identified. Assessment: 14:45 General: Appears in no apparent distress. Behavior is calm, cooperative. Pain: Denies hb pain. Neuro: Level of Consciousness is awake, alert, obeys commands, Oriented to person, place, time, situation. Cardiovascular: Patient's skin is warm and dry. Respiratory: Reports cough that is non-productive, Respiratory effort is even, unlabored, Respiratory pattern is regular, symmetrical. GI: No signs and/or symptoms were reported involving the gastrointestinal system. : No signs and/or symptoms were reported regarding the genitourinary system. EENT: Reports nasal congestion nasal discharge. Derm: Skin is pink, warm \T\ dry. 16:45 Reassessment: Patient appears in no apparent distress at this time. Patient and/or hb family updated on plan of care and expected duration. Pain level reassessed. Patient is alert, oriented x 3, equal unlabored respirations, skin warm/dry/pink. Vital Signs: 14:40 BP 112 / 88; Pulse 91; Resp 18; Temp 97.3(TE); Pulse Ox 99% on R/A; Weight 81.65 kg; hb Height 5 ft. 3 in. ; Pain 0/10; 14:40 Body Mass Index 31.89 (81.65 kg, 160.02 cm) hb 14:40 Pain Scale: Adult hb ED Course: 14:19 Patient arrived in ED. mg5 14:22 Kevan Gay PA is PHCP. cp 14:22 Mg Bowman MD is Attending Physician. cp 14:41 Triage completed. hb 14:42 Arm band placed on. hb 15:00 Patient has correct armband on for positive identification. Provided Education on: hb TESTS, RESULT TIMES. 15:01 XRAY Chest Pa And Lat (2 Views) In Process Unspecified. EDMS 17:35 No provider procedures requiring assistance completed. Patient did not have IV access hb during this emergency room visit. Administered Medications: No medications were administered Medication: 16:45 VIS not applicable for this client. hb Outcome: 17:27 Discharge ordered by . cp 17:35 Discharged to home ambulatory, hb 17:35 Condition: stable 17:35 Discharge instructions given to patient, Instructed on discharge instructions, follow up and referral plans. medication usage, Demonstrated understanding of instructions, follow-up care, medications, Prescriptions given X 2, 17:37 Patient left the ED. hb Signatures: Dispatcher [employer] EDWA Kevan Gay PA PA cp Baxter, Heather, GIORGIO RN Marion Turcios mg5
--- NOTE | 2023-03-28 17:29 | EDPHYS ---
Physician Documentation [facility] Name: Mitali Law Age: 47 yrs Sex: Female : 1975 Arrival Date: 03/28/2023 Time: 14:09 Bed 11 Private MD: ED Physician Mg Bowman HPI: 03/28 15:00 This 47 yrs old Female presents to ER via Ambulatory with complaints of Flu Symptoms. cp 15:00 The patient or guardian reports cough, that is intermittent, flu symptoms, low-grade cp fever, body aches. Onset: The symptoms/episode began/occurred 3 week(s) ago. Associated signs and symptoms: Pertinent positives: rhinorrhea, sore throat, Pertinent negatives: chest pain, diarrhea, vomiting. Severity of symptoms: in the emergency department the symptoms are unchanged despite home interventions. 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 - Social history:: Smoking status: Patient denies any tobacco usage or history of. ROS: 15:05 Eyes: Negative for injury, pain, redness, and discharge, cp 15:05 Constitutional: Positive for body aches, Negative for fever, 15:05 ENT: Positive for rhinorrhea, sore throat, Negative for drainage from ear(s), ear pain, difficulty swallowing, difficulty handling secretions, 15:05 Cardiovascular: Negative for chest pain, 15:05 Respiratory: Positive for cough, 15:05 Abdomen/GI: Negative for abdominal pain, vomiting, diarrhea, constipation, 15:05 Neuro: Negative for altered mental status, dizziness, headache, weakness, cp 15:05 All other systems are negative, Exam: 15:10 Constitutional: The patient appears in no acute distress, alert, awake, non-toxic, well cp developed, well nourished, obviously ill, 15:10 Head/Face: Normocephalic, atraumatic. cp 15:10 ENT: External ear(s): are unremarkable, Ear canal(s): are normal, clear, TM's: dullness, bilaterally, Nose: nasal drainage, that is minimal, Mouth: Lips: moist, Oral mucosa: moist, Posterior pharynx: Tonsils: no enlargement, no exudate, swelling, is not appreciated, erythema, that is mild, 15:10 Neck: ROM/movement: is normal, is supple, without pain, no range of motions limitations, no meningismus, Lymph nodes: no appreciated lymphadenopathy, 15:10 Chest/axilla: Inspection: normal, 15:10 Cardiovascular: Rate: normal, Rhythm: regular, Edema: is not appreciated, JVD: is not appreciated, 15:10 Respiratory: the patient does not display signs of respiratory distress, Respirations: normal, no use of accessory muscles, no retractions, labored breathing, is not present, Breath sounds: bronchial sounds, that are mild, are heard diffusely, stridor, is not appreciated, + upper airway congestion. wheezing: is not appreciated, 15:10 Abdomen/GI: Exam negative for discomfort, distension, guarding, Inspection: abdomen appears normal, 15:10 Skin: no rash present. Vital Signs: 14:40 BP 112 / 88; Pulse 91; Resp 18; Temp 97.3(TE); Pulse Ox 99% on R/A; Weight 81.65 kg; hb Height 5 ft. 3 in. ; Pain 0/10; 14:40 Body Mass Index 31.89 (81.65 kg, 160.02 cm) hb 14:40 Pain Scale: Adult hb MDM: 14:46 Patient medically screened. cp 15:00 Differential diagnosis: bronchitis, flu, pneumonia, strep throat. 17:26 Data reviewed: vital signs, nurses notes, lab test result(s), radiologic studies, plain cp films. 17:26 Counseling: I had a detailed discussion with the patient and/or guardian regarding the cp historical points, exam findings, and any diagnostic results supporting the discharge/admit diagnosis, lab results, radiology results, to return to the emergency department if symptoms worsen or persist or if there are any questions or concerns that arise at home. 03/28 14:52 Order name: Influenza Screen (a \T\ B); Complete Time: 16:13 03/28 16:13 Interpretation: Reviewed. 03/28 14:52 Order name: Strep 03/28 16:13 Interpretation: Reviewed. 03/28 14:52 Order name: SARS RAPID; Complete Time: 16:13 03/28 16:13 Interpretation: Reviewed. cp 03/28 16:08 Order name: Throat Culture EDMS 03/28 14:47 Order name: XRAY Chest Pa And Lat (2 Views); Complete Time: 16:13 cp 03/28 16:13 Interpretation: Report reviewed. cp Administered Medications: No medications were administered Disposition Summary: 03/28/23 17:27 Discharge Ordered Notes: Location: Home cp Problem: new cp Symptoms: are unchanged cp Condition: Stable cp Diagnosis - Cough cp - Acute pharyngitis, unspecified cp Followup: cp - With: Private Physician - When: 2 - 3 days - Reason: Worsening of condition Discharge Instructions: - Discharge Summary Sheet cp - Pharyngitis cp - Cough, Adult cp Forms: - Medication Reconciliation Form cp - Thank You Letter cp - Antibiotic Education cp - Prescription Opioid Use cp - Patient Portal Instructions cp - Leadership Thank You Letter cp - Work release form Prescriptions: - Bromfed DM 2-30-10 mg/5 mL Oral syrup - administer 10 milliliter ORAL route every 6 hours as needed for cold symptoms; cp 240 milliliter; Refills: 0, Product Selection Permitted - Zithromax Z-Raymundo 250 mg Oral Tablet - take 1 tablet ORAL route as directed for 5 days Day 1 - take two (2) tablets cp one time. Day 2, 3, 4 , 5 take one (1) tablet once daily.; 6 tablet; Refills: 0, Product Selection Permitted Signatures: Dispatcher [employer] EDIA Kevan Gay PA PA cp Jadyn Flaherty, RN RN Corrections: (The following items were deleted from the chart) 03/29 10:43 10:40 Constitutional: Positive for body aches, Negative for fever, cp cp 10:43 10:40 Cardiovascular: Negative for chest pain, cp cp 10:43 10:40 Respiratory: Positive for cough, cp cp 10:43 10:40 Eyes: Negative for injury, pain, redness, and discharge, cp cp 10:43 10:40 ENT: Positive for rhinorrhea, sore throat, Negative for drainage from ear(s), ear cp pain, difficulty swallowing, difficulty handling secretions, cp 10:43 10:40 Abdomen/GI: Negative for abdominal pain, vomiting, diarrhea, constipation, cp cp
[2023-03-28 18:03] VITALS: BP 112/88; TEMP 97.3; O2SAT 99
== END 2023-03-28 17:37 | disposition home or self-care (01) ==
LOC: ER 14:09
DX: R05.9 Cough, unspecified (principal); J02.9 Acute pharyngitis, unspecified; Z11.52 Encounter for screening for COVID-19
CPT/HCPCS: 36415; 71046; 87070; 87081; 87804; 87811; 99283

== ENCOUNTER → 2023-05-28 | Emergency (ER) | payer SELFPAY ==
[~2023-05-28] MED LIST: CEFTRIAXONE 2000 MG/VIAL ONE; CIPROFLOXACIN 400mg IV 400 MG/200 ML BAG IV ONE; FAMOTIDINE 20 MG/2 ML VIAL IV ONE; METRONIDAZOLE 500mg IVPB 500 MG/100 ML BAG IV ONE; MORPHINE 4 MG/ML SYR ONE; NA CHLORIDE 0.9% 1,000 ML ONE; NA CHLORIDE 0.9% 100 ML ONE; ONDANSETRON 4 MG/2 ML VIAL ONE
--- OUTSIDE RECORDS SUMMARY | 2023-05-28 11:29 | XMS REPORT | Continuity of Care Document ---
Author Name Unknown Address [address] [facility] [address] [place] [address] [facility] thconnect Address [address] [facility] [address] [place] [address] Care Team Providers Care Auto Technician Name Role Phone Marcelina Islas Primary Care Physicia n [email or web address]_S Attending Clinician Unavaila MARCELINA Razo Attending Clinician Unavail able DEBBY HILTON Attending Clinician Unav ailable Debby Hilton MD Attending Clinician + ALEX MOSLEY Attending Clinician Unavaila Alex Mcmillan Attending Clinician + [phone] QUETA BLAIR Attending Clinician Unavailab le Lab, Ang-Rmchp Attending Clinician Unavailable Queta Clemente Attending Clinician [phone] Marcelina Islas Attending Clinician + Doctor Unassigned, [place] Attending Clinician U navailable Pgy3 Attending Clinician Unavailable Hortencia Ludwig MD Attending Clinician [phone] HORTENCIA LUDWIG Attending Clinician Unavailable Pal RN, Elodia Attending Clinician Unavailable TODD SERRATO Attending Clinician Unavailable Only, Ang Db Test Attending Clinician Angelique Serrato MD, Todd Attending Clinician MERCEDEZ LIU Attending Clinician Angelique choe [email or web address]_S Admitting Clinician Unavailapolinar GLORIAERDEBBY GROVE Admitting Clinician Unav ailable AKINSIMARCELINA CALLE C Admitting Clinician Unavail able Payers Payer Name Policy Type Policy Number Effective Date Expirati on Date Source [facility] [id number] 2016 00:00:00 [employer] [facility] [id number] 2021 00:00:00 Problems Condition Name Condition Details [...] evidence of hyperplas ia or malignanc y [facility] Elevated blood pressure reading without diagnosis of hypertensi on Elevated blood pressure reading without diagnosis of hypertensi on Disease Active 05-02 00:00: 00 [facility] Other general counseling and advice for contracept shahla management Other general counseling and advice for contracept shahla management Disease Active 05-03 00:00: 00 [facility] Over weight Over weight Disease Active 05-03 00:00: 00 [facility] Vaginal discharge Vaginal discharge Disease Active 05-03 00:00: 00 [facility] Encounter for screening mammogram for breast cancer Encounter for screening mammogram for breast cancer Disease Active 10-08 00:00: 00 [facility] Urinary tract infection, site unspecifie d Urinary tract infection, site unspecifie d Disease Active 10-08 00:00: 00 [facility] Tobacco use disorder Tobacco use disorder Disease Active 10-08 00:00: 00 [facility] Depression , unspecifie d depression type Depression , unspecifie d depression type Disease Active 10-08 00:00: 00 [facility] History of tubal ligation History of tubal ligation Disease Active 10-08 00:00: 00 [facility] Allergies, Adverse Reactions, Alerts Allergy Name Allergy Type Status Severity Reaction(s) Onset Date Inactive Date Treating Clinician Comments Source ZIPRASID ONE HCL DRUG INGREDI Active Hallucinates 2011-04 00:00: 00 [facility] Ziprasid one Hcl Propensi ty to adverse reaction s Active Hallucinatio ns 2011-04 00:00: 00 [facility] Sulfa (Sulfona mide Antibiot ics) Propensi ty to adverse reaction s Active Itching 12-25 00:00: 00 [facility] SULFA (SULFONA MIDE ANTIBIOT ICS) Drug Class Active ITCHING 12-25 00:00: 00 [facility] Social History Social Habit Start Date Stop Date Quantity Comments Source [facility] of tobacco use Cigarette Smoker [facility] Exposure to SARS-CoV-2 (event) 2022-07-13 00:00:00 2022-07-23 21:06:00 Not sure [facility] Alcohol intake 2021-05-28 00:00:00 2021-05-28 00:00:00 Current non-drinker of alcohol (finding) [facility] History of Social function 2021-05-02 00:00:00 2021-05-02 00:00:00 [facility] Tobacco use and exposure 2020-05-03 00:00:00 2020-05-03 00:00:00 Smokeless tobacco non-user [facility] Tobacco Comment 2016-10-08 00:00:00 2016-10-08 00:00:00 smokes 2 x per day [facility] Sex Assigned At 1975 00:00:00 1975 00:00:00 [facility] Smoking Status Start Date Stop Date Source Ex-smoker 2020-05-03 00:00:00 2020-05-03 00:00:00 [facility] Medications Ordered Medication Name Filled Medication Name Start Date Stop Date Current Medication? Ordering Clinician Indication Dosage Frequency Signature (SIG) Comments Components Source traMADoL (ULTRAM) tablet 50 mg 01-12 21:00: 00 01-12 20:51 :00 No 50mg 50 mg, Oral, ONCE NOW, 1 dose, On 01/12/23 at 1600, Routine [facility] ketorolac (TORADOL) injection 30 mg 01-12 20:15: 00 01-12 19:48 :00 No 30mg 30 mg, Intramuscu lar, ONCE, 1 dose, On Fri01/12/23 at 1515, Routine [facility] traMADoL 50 mg tablet 01-12 00:00: 00 01-20 04:59 :00 No [id number] 50mg Take 1 tablet by mouth every 6 (six) hours as needed for Pain (scale 4-6) for up to 7 days. Indication s: acute pain [facility] 105-iron-fo lic ac-dha 30 mg iron- 1.4 mg-300 mg Cmpk 10-23 13:52: 46 Yes Take by mouth. [facility] 105-iron-fo lic ac-dha 30 mg iron- 1.4 mg-300 mg Cmpk 10-23 13:52: 46 Yes Take by mouth. [facility] 105-iron-fo lic ac-dha 30 mg iron- 1.4 mg-300 mg Cmpk 10-23 13:52: 46 Yes Take by mouth. [facility] 105-iron-fo lic ac-dha 30 mg iron- 1.4 mg-300 mg Cmpk 10-23 13:52: 46 Yes Take by mouth. [facility] 105-iron-fo lic ac-dha 30 mg iron- 1.4 mg-300 mg Cmpk 2021-0 10-23 13:52: 46 Yes Take by mouth. [facility] 105-iron-fo lic ac-dha 30 mg iron- 1.4 mg-300 mg Cmpk 10-23 13:52: 46 Yes Take by mouth. [facility] Nitrofurant oin&Nit. Macrocryst (MACROBID) 100 mg capsule 10-23 00:00: 00 Yes [id number] 100mg Take 1 capsule by mouth 2 (two) times daily. [facility] Nitrofurant oin&Nit. Macrocryst (MACROBID) 100 mg capsule 10-23 00:00: 00 Yes [id number] 100mg Take 1 capsule by mouth 2 (two) times daily. [facility] Nitrofurant oin&Nit. Macrocryst (MACROBID) 100 mg capsule 10-23 00:00: 00 Yes [id number] 100mg Take 1 capsule by mouth 2 (two) times daily. [facility] Nitrofurant oin&Nit. Macrocryst (MACROBID) 100 mg capsule 10-23 00:00: 00 Yes [id number] 100mg Take 1 capsule by mouth 2 (two) times daily. [facility] Nitrofurant oin&Nit. Macrocryst (MACROBID) 100 mg capsule 10-23 00:00: 00 Yes [id number] 100mg Take 1 capsule by mouth 2 (two) times daily. [facility] norethindro ne 0.35 mg tablet 05-28 00:00: 00 Yes [id number] 1{tbl} Take 1 tablet by mouth daily. [facility] ferrous sulfate 325 mg (65 mg iron) tablet 05-28 00:00: 00 Yes [id number] 325mg Take 1 tablet by mouth 2 (two) times daily. [facility] norethindro ne 0.35 mg tablet 05-28 00:00: 00 Yes [id number] 1{tbl} Take 1 tablet by mouth daily. [facility] ferrous sulfate 325 mg (65 mg iron) tablet 05-28 00:00: 00 Yes [id number] 325mg Take 1 tablet by mouth 2 (two) times daily. [facility] norethindro ne 0.35 mg tablet 2 00:00: 00 Yes [id number] 1{tbl} Take 1 tablet by mouth daily. [facility] ferrous sulfate 325 mg (65 mg iron) tablet 05-28 00:00: 00 Yes [id number] 325mg Take 1 tablet by mouth 2 (two) times daily. [facility] norethindro ne 0.35 mg tablet 05-28 00:00: 00 Yes [id number] 1{tbl} Take 1 tablet by mouth daily. [facility] ferrous sulfate 325 mg (65 mg iron) tablet 05-28 00:00: 00 Yes [id number] 325mg Take 1 tablet by mouth 2 (two) times daily. [facility] norethindro ne 0.35 mg tablet 05-28 00:00: 00 Yes [id number] 1{tbl} Take 1 tablet by mouth daily. [facility] ferrous sulfate 325 mg (65 mg iron) tablet 05-28 00:00: 00 Yes [id number] 325mg Take 1 tablet by mouth 2 (two) times daily. [facility] norethindro ne 0.35 mg tablet 05-28 00:00: 00 Yes [id number] 1{tbl} Take 1 tablet by mouth daily. [facility] ferrous sulfate 325 mg (65 mg iron) tablet 05-28 00:00: 00 Yes [id number] 325mg Take 1 tablet by mouth 2 (two) times daily. [facility] Norethindro ne Acet-Ethiny l Est (LOESTRIN 1.5, 21,) 1.5-30 mg-mcg per tablet 06-27 00:00: 00 Yes [id number] 1{tbl} Take 1 tablet by mouth daily. [facility] Norethindro ne Acet-Ethiny l Est (LOESTRIN 1.530, 21,) 1.5-30 mg-mcg per tablet - 00:00: 00 Yes [id number] 1{tbl} Take 1 tablet by mouth daily. [facility] Norethindro ne Acet-Ethiny l Est (LOESTRIN 1.5, 21,) 1.5-30 mg-mcg per tablet 06-27 00:00: 00 Yes [id number] 1{tbl} Take 1 tablet by mouth daily. [facility] Norethindro ne Acet-Ethiny l Est (LOESTRIN 1.5, 21,) 1.5-30 mg-mcg per tablet 06-27 00:00: 00 Yes [id number] 1{tbl} Take 1 tablet by mouth daily. [facility] Norethindro ne Acet-Ethiny l Est (LOESTRIN 1.5, 21,) 1.5-30 mg-mcg per tablet 06-27 00:00: 00 Yes [id number] 1{tbl} Take 1 tablet by mouth daily. [facility] Norethindro ne Acet-Ethiny l Est (LOESTRIN 1.5, 21,) 1.5-30 mg-mcg per tablet 06-27 00:00: 00 Yes [id number] 1{tbl} Take 1 tablet by mouth daily. [facility] Immunizations Ordered Immunization Name Filled Immunization Name Date Status Comments Source Td 2010-06-03 00:00:00 Completed [facility] Td 2010-06-03 00:00:00 Completed [facility] Td 2010-06-03 00:00:00 Completed [facility] TD, NOS 2010-06-03 00:00:00 Completed [facility] TD, NOS Unknown Completed [facility] TD, NOS Unknown Completed [facility] Vital Signs Vital Name Observation Time Observation Value Comments S jessica Systolic blood pressure 2023-01-12 19:16:13 134 mm[Hg] [facility] Diastolic blood pressure 2023-01-12 19:16:13 108 mm[Hg] [facility] Heart rate 2023-01-12 19:16:13 100 /min [facility] Body temperature 2023-01-12 19:16:13 36.78 Lois [facility] Respiratory rate 2023-01-12 19:16:13 16 /min [facility] Body height 2023-01-12 19:15:[address] [facility] Body weight 2023-01-12 19:15:00 84.55 kg Univ [facility] BMI 2023-01-12 19:15:00 33.02 kg/m2 [facility] Oxygen saturation in Arterial blood by Pulse oximetry 2023-01-12 19:15:00 100 /min [facility] Systolic blood pressure 2022-07-24 02:06:00 159 mm[Hg] [facility] Diastolic blood pressure 2022-07-24 02:06:00 106 mm[Hg] [facility] Heart rate 2022-07-24 02:06:00 90 /min Unive [facility] Body temperature 2022-07-24 02:06:00 36.61 Lois [facility] Respiratory rate 2022-07-24 02:06:00 16 /min [facility] Body height 2022-07-24 02:06:[address] [facility] Body weight 2022-07-24 02:06:[address] [facility] BMI 2022-07-24 02:06:00 31.89 kg/m2 [facility] Oxygen saturation in Arterial blood by Pulse oximetry 2022-07-24 02:06:00 100 /min [facility] Systolic blood pressure 2021-12-04 20:55:00 135 mm[Hg] [facility] Diastolic blood pressure 2021-12-04 20:55:00 92 mm[Hg] [facility] Heart rate 2021-12-04 20:55:00 86 /min Unive [facility] Body temperature 2021-12-04 20:54:00 36.56 Lois [facility] Respiratory rate 2021-12-04 20:54:00 20 /min [facility] Body height 2021-12-04 20:54:[address] [facility] Body weight 2021-12-04 20:54:[address] [facility] BMI 2021-12-04 20:54:00 33.03 kg/m2 [facility] Procedures Procedure Date / Time Performed Performing Clinicia n Source ASSIGNMENT OF BENEFITS 2023-01-12 20:25:03 Docto r Unassigned, Dupree [facility] POCT TEST 2023-01-12 19:47:00 Debby Talbert [facility] CONSENT/REFUSAL FOR DIAGNOSIS AND TREATMENT 2023-01-12 19:06:32 Doctor Unassigned, Dupree [facility] NOTICE OF PRIVACY PRACTICES 2022-07-24 01:52:33 Doctor Unassigned, Dup[place] [facility] CONSENT/REFUSAL FOR DIAGNOSIS AND TREATMENT 2022-07-24 01:52:12 Doctor Unassigned, Dupree [facility] POCT URINALYSIS W/O SPECIFIC GRAVITY 2021-12-04 20:55:00 Marcelina Willson [facility] Encounters Start Date/Time End Date/Time Encounter Type Admission Type Attending [facility] Facility Care Department Encounter ID Source 2023-02-16 00:00:00 2023-02-16 00:00:00 Outpatient [email or web address] diyala_S [facility] [id number] [facility] 2023-01-15 13:30:00 2023-01-15 13:30:00 Outpatient R MARCELINA WILLSON [facility] [id number] [facility] 2023-01-12 14:17:00 2023-01-12 16:11:00 Emergency X DEBBY HILTON [facility] ERT [id number] [facility] 2023-01-12 14:17:00 2023-01-12 16:11:00 Emergency Debby Hilton [facility] [id number] 350.1.13.10 4.2.7.2.686 [id number] [facility] 2022-07-23 21:09:00 2022-07-23 22:34:00 Emergency X ALEX MOSLEY [facility] ERT [id number] [facility] 2022-07-23 21:09:00 2022-07-23 22:34:00 Emergency Alex Mosley [facility] 1..840.114 350.1.13.10 4.2.7.2.686 [id number] [facility] 2022-04-22 13:15:00 2022-04-22 13:15:00 Outpatient R MARCELINA WILLSON [facility] [id number] [facility] 2021-12-05 13:30:00 2021-12-05 13:30:00 Outpatient R [facility] [id number] [facility] 2021-12-05 13:30:00 2021-12-05 13:30:00 Outpatient R QUETA BLAIR [facility] [id number] [facility] 2021-12-05 13:30:00 2021-12-05 13:30:00 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7.2.686 [id number] [facility] 2021-12-04 15:30:00 2021-12-04 16:27:05 Outpatient R QUETA BLAIR [facility] [id number] [facility] 2021-10-23 13:30:00 2021-10-23 14:13:37 Outpatient R MARCELINA WILLSON [facility] [id number] [facility] 2021-10-23 13:30:00 2021-10-23 14:13:37 Office Visit Marcelina Willson Bunny [facility] [employer] FEEDER [facility] CHILD [facility] 1..840.114 350.1.13.10 4.2.7.2.686 [id number] [facility] 2021-10-19 00:00:00 2021-10-19 00:00:00 Telephone YelenamaceyMarcelina Bunny [facility] [employer] FEEDER [facility] 1..840.114 350.1.13.10 4.2.7.2.686 [id number] [facility] 2021-10-01 15:00:00 2021-10-01 15:00:00 Outpatient R IRENESIMARCELINA CALLE [facility] [id number] [facility] 2021-10-01 15:00:00 2021-10-01 15:00:00 Outpatient R AKINSIPE, MARCELINA [facility] [id number] [facility] 2021-10-01 15:00:00 2021-10-01 15:00:00 Outpatient R IRENESIPEMARCELINA [facility] [id number] [facility] 2021-10-01 15:00:00 2021-10-01 15:00:00 Outpatient R IRENESIPEMARCELINA [facility] [id number] [facility] 2021-08-10 00:00:00 2021-08-10 00:00:00 Telephone Marcelina Willson [facility] [employer] FEEDER [facility] CHILD [facility] 1..840.114 350.1.13.10 4.2.7.2.686 [id number] [facility] 2021-08-08 14:45:00 2021-08-08 15:54:48 Outpatient R MARCELINA WILLSON [facility] [id number] [facility] 2021-08-08 14:45:00 2021-08-08 15:54:48 Office Visit Marcelina Willson [employer] [facility] 1..114 350.1.13.10 4.2.7.2.686 [id number] [facility] 2021-06-26 06:35:31 2021-06-26 23:59:00 Outpatient R MARCELINA WILLSON [facility] [id number] [facility] 2021-06-26 06:35:31 2021-06-26 23:59:00 Hospital Encounter Marcelina Willson [facility] ..114 350.1.13.10 4.2.7.2.686 [id number] [facility] 2021-06-26 00:00:00 2021-06-26 00:00:00 Outpatient R MARCELINA WILLSON [facility] [id number] [facility] 2021-06-26 00:00:00 2021-06-26 00:00:00 Outpatient R MARCELINA WILLSON [facility] [id number] [facility] 2021-06-05 00:00:00 2021-06-05 00:00:00 Orders Only Doctor Unassigned, [place] [facility] .114 350.1.13.10 4.2.7.2.686 [id number] [facility] 2021-06-04 00:00:00 2021-06-04 00:00:00 Patient Secure Msg Marcelina Willson [facility] [employer] [facility] 1.84.114 350.1.13.10 4.2.7.2.686 [id number] [facility] 2021-05-28 14:30:00 2021-05-28 16:27:34 Office Visit Pgy3 Hortencia Ludwig [facility] 1.840.114 350.1.13.10 4.2.7.2.686 [id number] [facility] 2021-05-28 14:30:00 2021-05-28 16:27:34 Outpatient R MARCO ANTONIO [facility] [id number] [facility] 2021-05-28 14:30:00 2021-05-28 16:27:34 Outpatient R MARCO ANTONIO [facility] [id number] [facility] 2021-05-28 14:30:00 2021-05-28 16:27:34 Outpatient R MARCO ANTONIO [facility] [id number] [facility] 2021-05-28 14:30:00 2021-05-28 14:30:00 [id number] 2021-05-16 00:00:00 2021-05-16 00:00:00 Telephone Elodia Aguillon [facility] .840.114 350.1.13.10 4.2.7.2.686 [id number] [facility] 2021-05-15 20:15:00 2021-05-15 20:30:38 Outpatient R ROJELIO TODD [facility] [id number] [facility] 2021-05-15 20:15:00 2021-05-15 20:30:38 Outpatient R ROJELIO [facility] [id number] [facility] 2021-05-15 20:15:00 2021-05-15 20:30:00 Laboratory Only Only, Ang Db Test Rojelio [facility] 1.840.114 350.1.13.10 4.2.7.2.686 [id number] [facility] 2021-05-02 14:15:00 2021-05-02 15:54:46 Outpatient R MARCELINA WILLSON [facility] [id number] [facility] 2021-05-02 14:15:00 2021-05-02 15:54:46 Office Visit Marcelina Willson [facility] [employer] FE[employer]ER [facility] MATERNAL & CHILD [facility] 1.2.840.114 350.1.13.10 4.2.7.2.686 [id number] [facility] 2021-05-02 14:15:00 2021-05-02 14:15:00 Outpatient R MARCELINA WILLSON [facility] [id number] [facility] 2021-05-02 00:00:00 2021-05-02 00:00:00 Orders Only Doctor Unassigned, [place] [facility] 1.2.840.114 350.1.13.10 4.2.7.2.686 [id number] [facility] 2020-11-21 14:15:00 2020-11-21 14:15:00 Outpatient R MARCELINA WILLSON [facility] [id number] [facility] 2020-11-21 14:15:00 2020-11-21 14:15:00 Outpatient R MARCELINA WILLSON [facility] [id number] [facility] 2020-09-27 13:15:00 2020-09-27 13:15:00 Outpatient R MARCELINA WILLSON [facility] [id number] [facility] 2020-09-27 13:15:00 2020-09-27 13:15:00 Outpatient R MARCELINA WILLSON [facility] [id number] [facility] 2020-06-27 16:00:00 2020-06-27 16:00:00 Outpatient R MERCEDEZ LIU [facility] [id number] [facility] 2020-06-21 00:00:00 2020-06-21 00:00:00 Outpatient MARCELINA MEDEIROS [facility] [id number] [facility] 2020-06-21 00:00:00 2020-06-21 00:00:00 Outpatient MARCELINA MEDEIROS [facility] [id number] [facility] 2020-05-03 14:30:00 2020-05-03 14:30:00 Outpatient R MARCELINA WILLSON [facility] [id number] [facility] Results Test Description Test Time Test Comments Results Result Co mments Source [facility]O SPECIFIC [id number] 20:55:00* Test Item Value Reference Range Interpretation [...] = 3257) . Negative - Negati ve [facility]/O SPECIFIC [id number] 20:55:00* Test Item Value Reference Range Interpretation [...] = 3257) . Negative - Negati ve [facility]
[2023-05-28 12:19] LABS: Absolute Lymphocytes (CBC) 2.1 K/uL (0.7-4.9); Hematocrit 40.6 % (36.0-45.0); Lymphocytes % 29.8 % (15.3-44.8); MCV 90.1 fL (80-100); MPV 7.6 fL (7.6-11.3); Platelets 235 thou/uL (152-406); RBC Red Blood Cell Count 4.51 M/uL (3.86-4.86)
[2023-05-28 12:21] LABS: Urine Bacteria <20 /HPF (<20); Urine Bilirubin NEGATIVE (Negative); Urine Blood Trace (Negative); Urine Clarity Turbid (Clear); Urine Color Light-Yellow (Yellow); Urine Glucose NEGATIVE (Negative); Urine Protein NEGATIVE (Negative); Urine RBC <5 /HPF (None Seen); Urine Urobilinogen Normal (Normal)
[2023-05-28 12:34] LABS: Albumin 3.5 g/dL (3.4-5.0); Bilirubin Total 0.3 mg/dL (0.2-1.0); Potassium 3.6 mEq/L (3.5-5.1); Protein, Total 7.8 g/dL (6.4-8.2)
--- NOTE | 2023-05-28 13:30 | RAD REPORT ---
EXAM DESCRIPTION: CT - Abdomen Pelvis W Contrast - 05/28/2023 12:49 pm CLINICAL HISTORY: ABD PAIN COMPARISON: No comparisons TECHNIQUE: Thin cut axial CT imaging of the abdomen and pelvis was performed following intravenous a dministration of 100 mL Isovue 300. Multiplanar reformats were generated and reviewed. All CT scans are performed using dose optimization technique as appropriate and may include automated exposure control or mA/KV adjustment according to patient size. FINDINGS: No suspicious findings in the lung bases. The liver shows diffuse parenchymal hypoattenuation suggesting steatosis. Spleen, adrenal glands, and pancreas show no suspicious findings. Gallbladder and biliary tree are also without suspicious findi ng. Symmetric renal function is seen with no hydronephrosis or suspicious renal mass. No dilated bowel loops or bowel wall thickening. No free air, free fluid or fluid collections. Ovoid focus of fat density with surrounding fat stranding and mild swelling measuring 1.7 cm present along the left flank, adjacent to the descending colon see axial image 52 on coronal image 61. . No hernia, mass or bulky lymphadenopathy. The urinary bladder is without significant finding. No suspicious bony findings. IMPRESSION: Focus of fat density in the left flank with adjacent fat stranding, suggestive of epiplo ic appendagitis. No other acute intra-abdominal process. Diffuse hepatic parenchymal hypoattenuation suggesting steatosis.
--- NOTE | 2023-05-28 14:12 | EDPHYS ---
Physician Documentation [facility] Name: Mitali Law Age: 47 yrs Sex: Female : 1975 Arrival Date: 05/28/2023 Time: 11:26 Bed 14 Private MD: RAYSHAWN Physician Kevan Carter HPI: 05/28 14:02 This 47 yrs old Female presents to ER via Ambulatory with complaints of lili Abdominal Pain. 14:02 The patient presents with abdominal pain in the left lower quadrant. Onset: The lili symptoms/episode began/occurred 2 day(s) ago. The patient presents to the emergency department with nausea, that is moderate, abdominal pain, of the left lower quadrant, described as constant, crampy, and does not radiate. Onset: The symptoms/episode began/occurred 2 day(s) ago. Possible causes: unknown. The symptoms are aggravated by movement, The symptoms are alleviated by remaining still. Associated signs and symptoms: Pertinent positives: abdominal pain. Associated signs and symptoms: The patient has no apparent associated signs or symptoms. Associated signs and symptoms: none. 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 - Social history:: Smoking status: Patient denies any tobacco usage or history of. - Family history:: not pertinent. ROS: 14:02 Constitutional: Negative for fever, chills, and weight loss, Eyes: Negative for injury, lili pain, redness, and discharge, ENT: Negative for injury, pain, and discharge, Neck: Negative for injury, pain, and swelling, Cardiovascular: Negative for chest pain, palpitations, and edema, Respiratory: Negative for shortness of breath, cough, wheezing, and pleuritic chest pain, Back: Negative for injury and pain, : Negative for injury, bleeding, discharge, and swelling, MS/Extremity: Negative for injury and deformity, Skin: Negative for injury, rash, and discoloration, Neuro: Negative for headache, weakness, numbness, tingling, and seizure, Psych: Negative for depression, anxiety, suicide ideation, homicidal ideation, and hallucinations, Allergy/Immunology: Negative for hives, rash, and allergies, Endocrine: Negative for neck swelling, polydipsia, polyuria, polyphagia, and marked weight changes, Hematologic/Lymphatic: Negative for swollen nodes, abnormal bleeding, and unusual bruising, 14:02 Abdomen/GI: Positive for abdominal pain, abdominal cramps, of the left lower quadrant, Exam: 14:02 Constitutional: This is a well developed, well nourished patient who is awake, alert, lili and in no acute distress. Head/Face: Normocephalic, atraumatic. Eyes: Pupils equal round and reactive to light, extra-ocular motions intact. Lids and lashes normal. Conjunctiva and sclera are non-icteric and not injected. Cornea within normal limits. Periorbital areas with no swelling, redness, or edema. ENT: Nares patent. No nasal discharge, no septal abnormalities noted. Tympanic membranes are normal and external auditory canals are clear. Oropharynx with no redness, swelling, or masses, exudates, or evidence of obstruction, uvula midline. Mucous membranes moist. Neck: Trachea midline, no thyromegaly or masses palpated, and no cervical lymphadenopathy. Supple, full range of motion without nuchal rigidity, or vertebral point tenderness. No Meningismus. Chest/axilla: Normal chest wall appearance and motion. Nontender with no deformity. No lesions are appreciated. Cardiovascular: Regular rate and rhythm with a normal S1 and S2. No gallops, murmurs, or rubs. Normal PMI, no JVD. No pulse deficits. Respiratory: Lungs have equal breath sounds bilaterally, clear to auscultation and percussion. No rales, rhonchi or wheezes noted. No increased work of breathing, no retractions or nasal flaring. Back: No spinal tenderness. No costovertebral tenderness. Full range of motion. Skin: Warm, dry with normal turgor. Normal color with no rashes, no lesions, and no evidence of cellulitis. MS/ Extremity: Pulses equal, no cyanosis. Neurovascular intact. Full, normal range of motion. Neuro: Awake and alert, GCS 15, oriented to person, place, time, and situation. Cranial nerves II-XII grossly intact. Motor strength 5/5 in all extremities. Sensory grossly intact. Cerebellar exam normal. Normal gait. Psych: Awake, alert, with orientation to person, place and time. Behavior, mood, and affect are within normal limits. 14:02 Abdomen/GI: Inspection: abdomen appears normal, Bowel sounds: normal, Palpation: mild abdominal tenderness, moderate abdominal tenderness, in the left upper quadrant and left lower quadrant, Liver: no appreciated palpable abnormalities, Hernia: not appreciated, Vital Signs: 11:35 BP 144 / 92; Pulse 91; Resp 18; Temp 98; Pulse Ox 100% ; Weight 81.65 kg; Height 5 ft. ap3 3 in. ; Pain 9/10; 13:10 BP 136 / 97; Pulse 80; Resp 16; Pulse Ox 100% ; bp 11:35 Body Mass Index 31.89 (81.65 kg, 160.02 cm) ap3 11:35 Pain Scale: Adult ap3 MDM: 11:36 Patient medically screened. [facility] 14:02 Differential diagnosis: diverticulitis. Data reviewed: vital signs, nurses notes, lab [facility] test result(s), radiologic studies, CT scan. Consideration of Admission/Observation Escalation of care including admission/observation considered. I considered the following discharge prescriptions or medication management in the emergency department Medications were administered in the Emergency Department. See MAR. Test considered but Not performed: Ultrasound NO ABD USG. Care significantly affected by the following chronic conditions: HPV, VICODIN ADDICTION. 05/28 11:42 Order name: CBC with Diff; Complete Time: 13:13 [facility] 05/28 11:42 Order name: CMP; Complete Time: 13:13 [facility] 05/28 11:42 Order name: Lipase; Complete Time: 13:13 [facility] 05/28 11:42 Order name: Test, Urine; Complete Time: 13:13 [facility] 05/28 11:42 Order name: Urinalysis w/ reflexes; Complete Time: 13:13 [facility] 05/28 11:42 Order name: CT Abd/Pelvis - IV Contrast Only; Complete Time: 14:00 [facility] 05/28 11:42 Order name: IV Saline Lock; Complete Time: 12:05 [facility] 05/28 11:42 Order name: Labs collected and sent; Complete Time: 12:05 [facility] Administered Medications: 12:05 Drug: Ondansetron IVP 4 mg IVP once; over 2 minutes Route: IVP; Site: right forearm; bp 15:38 Follow up: Response: No adverse reaction bp 12:05 Drug: morphine IVP or IV 4 mg IVP once over 4 mins Route: IVP; Infused Over: 4 mins; bp Site: right forearm; 15:38 Follow up: Response: No adverse reaction bp 12:06 Drug: NS 0.9% IV 1000 ml IV at 1 bolus Per protocol; 1000 mL bolus Route: IV; Rate: 1 bp bolus; Site: right forearm; 15:37 Follow up: IV Status: Completed infusion bp 12:06 Drug: Famotidine IVP 20 mg IVP once; dilute with 10 mL 0.9% NaCl; give over 2 minutes bp Route: IVP; Site: right forearm; 15:36 Follow up: Response: No adverse reaction bp 13:06 Drug: metroNIDAZOLE IVPB 500 mg 100 ml IVPB at 200 ml/hr once over 30 mins Volume: 100 bp ml; Route: IVPB; Rate: 200 ml/hr; Infused Over: 30 mins; Site: right antecubital; 15:36 Follow up: IV Status: Completed infusion bp 13:51 Drug: Ciprofloxacin IVPB 400 mg 200 ml IVPB once over 60 mins Volume: 200 ml; Route: bp IVPB; Infused Over: 60 mins; Site: right antecubital; 15:36 Follow up: IV Status: Completed infusion bp 14:30 Drug: Rocephin IV 2 grams IV at per protocol once; Given slow IV push per pharmarcy bp instructions Route: IV; Rate: per protocol; Site: right forearm; 15:36 Follow up: IV Status: Completed infusion; IV Intake: 100ml bp Disposition Summary: 05/28/23 14:11 Discharge Ordered Notes: Location: Home lili Problem: new lili Symptoms: have improved lili Condition: Stable lili Diagnosis - Abdominal tenderness lili - Diverticulitis of large intestine without perforation or abscess without bleeding - lili EPIPLOIC APPENDAGITIS Followup: lili - With: Private Physician - When: 2 - 3 days - Reason: Recheck today's complaints, Continuance of care, Re-evaluation by your physician Followup: lili - With: Marco A Lazo MD - When: 2 - 3 days - Reason: Recheck today's complaints, Re-evaluation by your physician Discharge Instructions: - Discharge Summary Sheet lili - Abdominal Pain, Adult lili - High-Fiber Eating Plan lili - Diverticulitis lili - Diverticulitis, [id number] lili - Abdominal Pain, Adult, [id number] [facility] - Epiploic Appendagitis [facility] Forms: - Medication Reconciliation Form [facility] - Thank You Letter [facility] - Antibiotic Education [facility] - Prescription Opioid Use lili - Patient Portal Instructions [facility] - Leadership Thank You Letter [facility] Prescriptions: - ondansetron 4 mg Oral Tablet,disintegrating - take 1 tablet ORAL route every 6-8 hours for 5 days; 20 tablet; Refills: 0, [facility] Product Selection Permitted - Colace 100 mg Oral Tablet - take 1 tablet ORAL route every 12 hours; 14 tablet; Refills: 0, Product [facility] Selection Permitted - Flagyl 500 mg Oral Tablet - take 1 tablet ORAL route every 6 hours for 10 days; 40 tablet; Refills: 0, [facility] Product Selection Permitted - Cipro 500 mg Oral tablet - take 1 tablet ORAL route every 12 hours for 10 days; 20 tablet; Refills: 0, [facility] Product Selection Permitted - dicyclomine 20 mg Oral tablet - take 1 tablet ORAL route 4 times per day; 28 tablet; Refills: 0, Product [facility] Selection Permitted Signatures: Dispatcher [employer] Kevan Terrell MD MD cha Peltier, Brian RN RN Inocencia Pratt RN RN ap3
--- NOTE | 2023-05-28 14:12 | ER ---
Nurse's Notes [facility] Name: iMtali Law Age: 47 yrs Sex: Female : 1975 Arrival Date: 05/28/2023 Time: 11:26 Bed 14 Private MD: Diagnosis: Abdominal tenderness;Diverticulitis of large intestine without perforation or abscess without bleeding-EPIPLOIC APPENDAGITIS Presentation: 05/28 11:35 Chief complaint: Patient states: she has had left lower abdominal pain since Friday ap3 afternoon. patient reports normal urination and bowel habits. Patient has not had a menstrual cycle in over a year. patient denies nausea and vomiting. patient states her pain is currently a 9/10 on the pain scale. Coronavirus screen: At this time, the client does not indicate any symptoms associated with coronavirus-19. Ebola Screen: No symptoms or risks identified at this time. Initial Sepsis Screen: Does the patient meet any 2 criteria? No. Patient's initial sepsis screen is negative. Does the patient have a suspected source of infection? No. Patient's initial sepsis screen is negative. Risk Assessment: Do you want to hurt yourself or someone else? Patient reports no desire to harm self or others. Onset of symptoms was May 26, 2023. 11:35 Method Of Arrival: Ambulatory ap3 11:35 Acuity: JAIR 3 ap3 Triage Assessment: 11:37 General: Appears uncomfortable, Behavior is calm, cooperative, appropriate for age. ap3 Pain: Complains of pain in left lower quadrant Pain currently is 9 out of 10 on a pain scale. Pain began 2-3 days ago. Neuro: Level of Consciousness is awake, alert, obeys commands, Oriented to person, place, time, situation. Cardiovascular: Patient's skin is warm and dry. Respiratory: Airway is patent Respiratory effort is even, unlabored, Respiratory pattern is regular, symmetrical. GI: Reports lower abdominal pain. 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 - Social history:: Smoking status: Patient denies any tobacco usage or history of. - Family history:: not pertinent. Screenin:38 [facility] ED Fall Risk Assessment (Adult) History of falling in the last 3 months, ap3 including since admission No falls in past 3 months (0 pts). Abuse screen: Denies threats or abuse. Nutritional screening: No deficits noted. Tuberculosis screening: No symptoms or risk factors identified. Assessment: 11:45 General: SEE TRIAGE NOTE. bp 13:00 Reassessment: No changes from previously documented assessment. Patient is alert, bp oriented x 3, equal unlabored respirations, skin warm/dry/pink. PT RETURNED FROM CT. Vital Signs: 11:35 BP 144 / 92; Pulse 91; Resp 18; Temp 98; Pulse Ox 100% ; Weight 81.65 kg; Height 5 ft. ap3 3 in. ; Pain 9/10; 13:10 BP 136 / 97; Pulse 80; Resp 16; Pulse Ox 100% ; bp 11:35 Body Mass Index 31.89 (81.65 kg, 160.02 cm) ap3 11:35 Pain Scale: Adult ap3 ED Course: 11:31 Patient arrived in ED. im 11:36 Kevan Carter MD is Attending Physician. lili 11:37 Triage completed. ap3 11:38 Arm band placed on left wrist. ap3 11:40 Nicholas Ceballos, GIORGIO is Primary Nurse. bp 12:06 Inserted saline lock: 20 gauge in right forearm, using aseptic technique. Blood bp collected. 12:49 CT Abd/Pelvis - IV Contrast Only In Process Unspecified. EDMS 13:11 Patient has correct armband on for positive identification. bp 14:07 Marco A Lazo MD is Referral Physician. lili 15:35 No provider procedures requiring assistance completed. IV discontinued, intact, bp bleeding controlled, No redness/swelling at site. Pressure dressing applied. Administered Medications: 12:05 Drug: Ondansetron IVP 4 mg IVP once; over 2 minutes Route: IVP; Site: right forearm; bp 15:38 Follow up: Response: No adverse reaction bp 12:05 Drug: morphine IVP or IV 4 mg IVP once over 4 mins Route: IVP; Infused Over: 4 mins; bp Site: right forearm; 15:38 Follow up: Response: No adverse reaction bp 12:06 Drug: NS 0.9% IV 1000 ml IV at 1 bolus Per protocol; 1000 mL bolus Route: IV; Rate: 1 bp bolus; Site: right forearm; 15:37 Follow up: IV Status: Completed infusion bp 12:06 Drug: Famotidine IVP 20 mg IVP once; dilute with 10 mL 0.9% NaCl; give over 2 minutes bp Route: IVP; Site: right forearm; 15:36 Follow up: Response: No adverse reaction bp 13:06 Drug: metroNIDAZOLE IVPB 500 mg 100 ml IVPB at 200 ml/hr once over 30 mins Volume: 100 bp ml; Route: IVPB; Rate: 200 ml/hr; Infused Over: 30 mins; Site: right antecubital; 15:36 Follow up: IV Status: Completed infusion bp 13:51 Drug: Ciprofloxacin IVPB 400 mg 200 ml IVPB once over 60 mins Volume: 200 ml; Route: bp IVPB; Infused Over: 60 mins; Site: right antecubital; 15:36 Follow up: IV Status: Completed infusion bp 14:30 Drug: Rocephin IV 2 grams IV at per protocol once; Given slow IV push per pharmarcy bp instructions Route: IV; Rate: per protocol; Site: right forearm; 15:36 Follow up: IV Status: Completed infusion; IV Intake: 100ml bp Intake: 15:36 IV: 100ml; Total: 100ml. bp Outcome: 14:11 Discharge ordered by . lili 15:35 Discharged to home ambulatory, bp 15:35 Condition: stable 15:35 Discharge instructions given to patient, Instructed on discharge instructions, follow up and referral plans. medication usage, Demonstrated understanding of instructions, follow-up care, medications, Prescriptions given X 4, 15:38 Patient left the ED. bp Signatures: Dispatcher [employer] EDKevan Cortes MD MD cha Peltier, Brian, RN RN bp Inocencia Hernández RN RN ap3 Denise Mcpherson
[2023-05-29 23:03] VITALS: BP 136/97; TEMP 98; O2SAT 100
== END ==
LOC: ER 11:26
DX: K57.32 Diverticulitis of large intestine without perforation or abscess without bleeding (principal); K63.89 Other specified diseases of intestine
CPT/HCPCS: 36415; 74177; 80053; 81001; 81025; 83690; 85025; J0696; J0744; J2405; J7030; Q9967

== ENCOUNTER 2023-09-16 20:22 | Emergency (ER) | payer OTHER ==
--- OUTSIDE RECORDS SUMMARY | 2023-09-16 20:25 | XMS REPORT | Continuity of Care Document ---
Author Name Unknown Address [address] [facility] [address] [place] [address] [facility] Address [address] [facility] [address] [place] [address] Care Team Providers Care Full Stack Developer Name Role Phone RAIN SANCHEZ JR Primary Care Physician Ross newsome UNKNOWN, ATTENDING Attending Clinician Unavailab rajesh [email or web address]_S Attending Clinician Unavaila MARCELINA Razo Attending Clinician Unavail able DEBBY TABARES Attending Clinician Unav ailDebby Avendano MD Attending Clinician + Alex Connors Attending Clinician + [phone] ALEX MOSLEY Attending Clinician Unavaila QUETA Wade Attending Clinician Unavailab le Lab, Ang-Rmchp Attending Clinician Unavailable Queta Clemente Attending Clinician +[phone] Marcelina Islas Attending Clinician + Doctor Unassigned, [place] Attending Clinician U navailable Pgy3 Attending Clinician Unavailable Hortencia Ludwig MD Attending Clinician [phone] LUDWIG, HORTENCIA W Attending Clinician Unavailable Elodia Aguillon RN Attending Clinician Unavailable TODD PUGA Attending Clinician Unavailable Only, Ang Db Test Attending Clinician Todd Vivar MD Attending Clinician MERCEDEZ LIU Attending Clinician Angelique choe [email or web address]_S Admitting Clinician Unavailapolinar koo HOPEJUDIEERMAINE, DEBBY WANG Admitting Clinician Unav ailable AKINSIMARCELINA CALLE C Admitting Clinician Unavail able Payers Payer Name Policy Type Policy Number Effective Date Expirati on Date Source [facility] [id number] 2016 00:00:00 Kasenna [facility] [id number] 2021 00:00:00 Problems Condition Name Condition Details [...] evidence of hyperplas ia or malignanc y [facility] Elevated blood pressure reading without diagnosis of hypertensi on Elevated blood pressure reading without diagnosis of hypertensi on Disease Active 05-02 00:00: 00 [facility] Other general counseling and advice for contracept shahla management Other general counseling and advice for contracept shahla management Disease Active 05-03 00:00: 00 [facility] Over weight Over weight Disease Active 05-03 00:00: 00 [facility] Vaginal discharge Vaginal discharge Disease Active 05-03 00:00: 00 [facility] Encounter for screening mammogram for breast cancer Encounter for screening mammogram for breast cancer Disease Active 10-08 00:00: 00 [facility] Urinary tract infection, site unspecifie d Urinary tract infection, site unspecifie d Disease Active 10-08 00:00: 00 [facility] Tobacco use disorder Tobacco use disorder Disease Active 10-08 00:00: 00 [facility] Depression , unspecifie d depression type Depression , unspecifie d depression type Disease Active 10-08 00:00: 00 [facility] History of tubal ligation History of tubal ligation Disease Active 10-08 00:00: 00 [facility] Allergies, Adverse Reactions, Alerts Allergy Name Allergy Type Status Severity Reaction(s) Onset Date Inactive Date Treating Clinician Comments Source ZIPRASID ONE HCL DRUG INGREDI Active Hallucinates 2011-04 00:00: 00 [facility] Ziprasid one Hcl Propensi ty to adverse reaction s Active Hallucinatio ns 2011-04 00:00: 00 [facility] Sulfa (Sulfona mide Antibiot ics) Propensi ty to adverse reaction s Active Itching 12-25 00:00: 00 [facility] SULFA (SULFONA MIDE ANTIBIOT ICS) Drug Class Active ITCHING 12-25 00:00: 00 [facility] Social History Social Habit Start Date Stop Date Quantity Comments [facility] of [facility] use Cigarette Smoker [facility] Exposure to SARS-CoV-2 (event) 2022-07-13 00:00:00 2022-07-23 21:06:00 Not sure [facility] Alcohol intake 2021-05-28 00:00:00 2021-05-28 00:00:00 Current non-drinker of alcohol (finding) [facility] History of Social function 2021-05-02 00:00:00 2021-05-02 00:00:00 [facility] Tobacco use and exposure 2020-05-03 00:00:00 2020-05-03 00:00:00 Smokeless tobacco non-user [facility] Tobacco Comment 2016-10-08 00:00:00 2016-10-08 00:00:00 smokes 2 x per day [facility] Sex Ass[birth year] At 1975 00:00:00 1975 00:00:00 [facility] Smoking Status Start Date Stop Date Source Ex-smoker 2020-05-03 00:00:00 2020-05-03 00:00:00 U [facility] Medications Ordered Medication Name Filled Medication Name Start Date Stop Date Current Medication? Ordering Clinician Indication Dosage Frequency Signature (SIG) Comments Components Source traMADoL (ULTRAM) tablet 50 mg 01-12 21:00: 00 01-12 20:51 :00 No 50mg 50 mg, Oral, ONCE NOW, 1 dose, On 01/12/23 at 1600, Routine [facility] ketorolac (TORADOL) injection 30 mg 01-12 20:15: 00 01-12 19:48 :00 No 30mg 30 mg, Intramuscu lar, ONCE, 1 dose, On Fri01/12/23 at 1515, Routine [facility] traMADoL 50 mg tablet 01-12 00:00: 00 01-20 04:59 :00 No [id number] 50mg Take 1 tablet by mouth every 6 (six) hours as needed for Pain (scale 4-6) for up to 7 days. Indication s: acute pain [facility] 105-iron-fo lic ac-dha 30 mg iron- 1.4 mg-300 mg Cmpk 10-23 13:52: 46 Yes Take by mouth. [facility] 105-iron-fo lic ac-dha 30 mg iron- 1.4 mg-300 mg Cmpk 10-23 13:52: 46 Yes Take by mouth. [facility] Nitrofurant oin&Nit. Macrocryst (MACROBID) 100 mg capsule 10-23 00:00: 00 Yes [id number] 100mg Take 1 capsule by mouth 2 (two) times daily. [facility] norethindro ne 0.35 mg tablet 05-28 00:00: 00 Yes [id number] 1{tbl} Take 1 tablet by mouth daily. [facility] ferrous sulfate 325 mg (65 mg iron) tablet 05-28 00:00: 00 Yes [id number] 325mg Take 1 tablet by mouth 2 (two) times daily. [facility] Norethindro ne Acet-Ethiny l Est (LOESTRIN 1.5/, 21,) 1.5-30 mg-mcg per tablet 06-27 00:00: 00 Yes [id number] 1{tbl} Take 1 tablet by mouth daily. [facility] Immunizations Ordered Immunization Name Filled Immunization Name Date Status Comments Source Td 2010-06-03 00:00:00 Completed [facility] Td 2010-06-03 00:00:00 Completed [facility] Td 2010-06-03 00:00:00 Completed [facility] TD, NOS 2010-06-03 00:00:00 Completed [facility] TD, NOS Unknown Completed [facility] TD, NOS Unknown Completed [facility] Vital Signs Vital Name Observation Time Observation Value Comments S ource Systolic blood pressure 2023-01-12 19:16:13 134 mm[Hg] [facility] Diastolic blood pressure 2023-01-12 19:16:13 108 mm[Hg] [facility] Heart rate 2023-01-12 19:16:13 100 /min [facility] Body temperature 2023-01-12 19:16:13 36.78 Lois [facility] Respiratory rate 2023-01-12 19:16:13 16 /min [facility] Body height 2023-01-12 19:15:00 160 cm [facility] Body weight 2023-01-12 19:15:00 84.55 kg [facility] BMI 2023-01-12 19:15:00 33.02 kg/m2 [facility] Oxygen saturation in Arterial blood by Pulse oximetry 2023-01-12 19:15:00 100 /min [facility] Systolic blood pressure 2022-07-24 02:06:00 159 mm[Hg] [facility] Diastolic blood pressure 2022-07-24 02:06:00 106 mm[Hg] [facility] Heart rate 2022-07-24 02:06:00 90 /min [facility] Body temperature 2022-07-24 02:06:00 36.61 Lois [facility] Respiratory rate 2022-07-24 02:06:00 16 /min [facility] Body height 2022-07-24 02:06:00 160 cm [facility] Body weight 2022-07-24 02:06:00 81.647 kg [facility] BMI 2022-07-24 02:06:00 31.89 kg/m2 [facility] Oxygen saturation in Arterial blood by Pulse oximetry 2022-07-24 02:06:00 100 /min [facility] Systolic blood pressure 2021-12-04 20:55:00 135 mm[Hg] [facility] Diastolic blood pressure 2021-12-04 20:55:00 92 mm[Hg] [facility] Heart rate 2021-12-04 20:55:00 86 /min [facility] Body temperature 2021-12-04 20:54:00 36.56 Lois [facility] Respiratory rate 2021-12-04 20:54:00 20 /min [facility] Body height 2021-12-04 20:54:00 160 cm [facility] Body weight 2021-12-04 20:54:00 84.567 kg [facility] BMI 2021-12-04 20:54:00 33.03 kg/m2 [facility] Procedures Procedure Date / Time Performed Performing Clinicia n Source ASSIGNMENT OF BENEFITS 2023-01-12 20:25:03 Docto r Unassigned, Prosser [facility] POCT TEST 2023-01-12 19:47:00 Debby Talbert [facility] CONSENT/REFUSAL FOR DIAGNOSIS AND TREATMENT 2023-01-12 19:06:32 Doctor Unassigned, [facility]er [facility] NOTICE OF PRIVACY PRACTICES 2022-07-24 01:52:33 Doctor Unassigned, Prosser [facility] CONSENT/REFUSAL FOR DIAGNOSIS AND TREATMENT 2022-07-24 01:52:12 Doctor Unassigned, Prosser [facility] POCT URINALYSIS W/O SPECIFIC GRAVITY 2021-12-04 20:55:00 Marcelina Willson [facility] Encounters Start Date/Time End Date/Time Encounter Type Admission Type Attending [facility] Facility Care Department Encounter ID Source 2023-09-16 20:20:00 2023-09-16 20:20:00 [place] R UNKNOWN, [place] [facility] [id number] [facility] 2023-02-16 00:00:00 2023-02-16 00:00:00 Outpatient [email or web address]_Ka diyala_S [facility] [id number] [facility] 2023-01-15 13:30:00 2023-01-15 13:30:00 Outpatient R MARCELINA WILLSON [facility] [id number] [facility] 2023-01-12 14:17:00 2023-01-12 16:11:00 Emergency X DEBBY TABARES [facility] ERT [id number] [facility] 2023-01-12 14:17:00 2023-01-12 16:11:00 Emergency AuDebby hager [facility] 1.2.840.114 350.1.13.10 4.2.7.2.686 [id number] [facility] 2022-07-23 21:09:00 2022-07-23 22:34:00 Emergency TimboAlex jimenez [facility] 1.2.840.114 350.1.13.10 4.2.7.2.686 [id number] [facility] 2022-07-23 21:09:00 2022-07-23 22:34:00 Emergency X ALEX MOSLEY [facility] ERT [id number] [facility] 2022-04-22 13:15:00 2022-04-22 13:15:00 Outpatient R MARCELINA WILLSON [facility] [id number] [facility] 2021-12-05 13:30:00 2021-12-05 13:30:00 Outpatient R [facility] [id number] [facility] 2021-12-05 13:30:00 2021-12-05 13:30:00 Outpatient R QUETA BLAIR [facility] [id number] [facility] 2021-12-05 13:30:00 2021-12-05 13:30:00 State Manager Visit Lab, Ang-Rmchp Lizabeth Blairapolinar Infante [facility] ACCOUNTS PAYABLES CLERK [facility] & CHILD [facility] 1.840.114 350.1.13.10 4.2.7.2.686 [id number] [facility] 2021-12-04 15:30:00 2021-12-04 16:27:05 Outpatient R RAY BLAIRHEIDI [facility] [id number] [facility] 2021-12-04 15:30:00 2021-12-04 16:27:05 Office Visit Lizabeth Blairapolinar Infante [facility] ACCOUNTS PAYABLES CLERK [facility] CHILD [facility] 1.840.114 350.1.13.10 4.2.7.2.686 [id number] [facility] 2021-12-04 15:30:00 2021-12-04 16:27:05 Outpatient R QUETA BLAIR [facility] [id number] [facility] 2021-10-23 13:30:00 2021-10-23 14:13:37 Outpatient R MARCELINA WILLSON [facility] [id number] [facility] 2021-10-23 13:30:00 2021-10-23 14:13:37 Office Visit Marcelina Willson [facility] ACCOUNTS PAYABLES CLERK [facility] CHILD [facility] 1.84.114 350.1.13.10 4.2.7.2.686 [id number] [facility] 2021-10-19 00:00:00 2021-10-19 00:00:00 Telephone Marcelina Willson [facility] ACCOUNTS PAYABLES CLERK [facility] & CHILD [facility] 1.840.114 350.1.13.10 4.2.7.2.686 [id number] [facility] 2021-10-01 15:00:00 2021-10-01 15:00:00 Outpatient R MARCELINA WILLSON [facility] [id number] [facility] 2021-10-01 15:00:00 2021-10-01 15:00:00 Outpatient R CITLALIPE, MARCELINA [facility] [id number] [facility] 2021-10-01 15:00:00 2021-10-01 15:00:00 Outpatient R CITLALIPEMARCELINA [facility] [id number] [facility] 2021-10-01 15:00:00 2021-10-01 15:00:00 Outpatient R CITLALIALVAMARCELINA [facility] [id number] [facility] 2021-08-10 00:00:00 2021-08-10 00:00:00 Telephone Anamika Marcelina Hollis [facility] ACCOUNTS PAYABLES CLERK [facility] & CHILD [facility] ..840.114 350.1.13.10 4.2.7.2.686 [id number] [facility] 2021-08-08 14:45:00 2021-08-08 15:54:48 Outpatient R MARCELINA WILLSON [facility] [id number] [facility] 2021-08-08 14:45:00 2021-08-08 15:54:48 Office Visit GustaboroelalvaMarcelina [facility] ACCOUNTS PAYABLES CLERK [facility] CHILD [facility] ..840.114 350.1.13.10 4.2.7.2.686 [id number] [facility] 2021-06-26 06:35:31 2021-06-26 23:59:00 Outpatient R CITLALIALVAMARCELINA [facility] [id number] [facility] 2021-06-26 06:35:31 2021-06-26 23:59:00 Hospital Encounter Marcelina Willson [facility] 1.840.114 350.1.13.10 4.2.7.2.686 [id number] [facility] 2021-06-26 00:00:00 2021-06-26 00:00:00 Outpatient R MARCELINA WILLSON [facility] [id number] [facility] 2021-06-26 00:00:00 2021-06-26 00:00:00 Outpatient R MARCELINA WILLSON [facility] [id number] [facility] 2021-06-05 00:00:00 2021-06-05 00:00:00 Orders Only Doctor Unassigned, Prosser [facility] 1.840.114 350.1.13.10 4.2.7.2.686 [id number] [facility] 2021-06-04 00:00:00 2021-06-04 00:00:00 Patient Secure Msg Marcelina Willson [facility] ACCOUNTS PAYABLES CLERK [facility] 1..840.114 350.1.13.10 4.2.7.2.686 [id number] [facility] 2021-05-28 14:30:00 2021-05-28 16:27:34 Office Visit Pgy3 Hortencia Ludwig [facility] 1.840.114 350.1.13.10 4.2.7.2.686 [id number] [facility] 2021-05-28 14:30:00 2021-05-28 16:27:34 Outpatient R HORTENCIA LUDWIG [facility] [id number] [facility] 2021-05-28 14:30:00 2021-05-28 16:27:34 Outpatient R HORTENCIA LUDWIG [facility] [id number] [facility] 2021-05-28 14:30:00 2021-05-28 16:27:34 Outpatient R HORTENCIA LUDWIG [facility] [id number] [facility] 2021-05-28 14:30:00 2021-05-28 14:30:00 Outpatient R HORTENCIA LUDWIG [facility] [id number] [facility] 2021-05-16 00:00:00 2021-05-16 00:00:00 Telephone Elodia Aguillon [facility] 1..840.114 350.1.13.10 4.2.7.2.686 [id number] [facility] 2021-05-15 20:15:00 2021-05-15 20:30:38 Outpatient R ROJELIO TODD [facility] [id number] [facility] 2021-05-15 20:15:00 2021-05-15 20:30:38 Outpatient R ROJELIO [facility] [id number] [facility] 2021-05-15 20:15:00 2021-05-15 20:30:00 Laboratory Only Only, Ang Db Test Rojelio [facility] 1..840.114 350.1.13.10 4.2.7.2.686 [id number] [facility] 2021-05-02 14:15:00 2021-05-02 15:54:46 Outpatient R MARCELINA WILLSON [facility] [id number] [facility] 2021-05-02 14:15:00 2021-05-02 15:54:46 Office Visit Marcelina Willson [facility] ACCOUNTS PAYABLES CLERK [facility] 1..840.114 350.1.13.10 4.2.7.2.686 [id number] [facility] 2021-05-02 14:15:00 2021-05-02 14:15:00 Outpatient R MARCELINA WILLSON [facility] [id number] [facility] 2021-05-02 00:00:00 2021-05-02 00:00:00 Orders Only Doctor Unassigned, Prosser [facility] 1.2.840.114 350.1.13.10 4.2.7.2.686 [id number] [facility] 2020-11-21 14:15:00 2020-11-21 14:15:00 Outpatient R ANAMIKAMARCELINA [facility] [id number] [facility] 2020-11-21 14:15:00 2020-11-21 14:15:00 Outpatient R ANAMIKA MARCELINA [facility] [id number] [facility] 2020-09-27 13:15:00 2020-09-27 13:15:00 Outpatient R ANAMIKA MARCELINA [facility] [id number] [facility] 2020-09-27 13:15:00 2020-09-27 13:15:00 Outpatient R ANAMIKA MARCELINA [facility] [id number] [facility] 2020-06-27 16:00:00 2020-06-27 16:00:00 Outpatient R MERCEDEZ LIU [facility] [id number] [facility] 2020-06-21 00:00:00 2020-06-21 00:00:00 Outpatient R ANAMIKA MARCELINA [facility] [id number] [facility] 2020-06-21 00:00:00 2020-06-21 00:00:00 Outpatient R ANAMIKA MARCELINA [facility] [id number] [facility] 2020-05-03 14:30:00 2020-05-03 14:30:00 Outpatient R ANAMIKA MARCELINA [facility] [id number] [facility] Results Test Description Test Time Test Comments Results Result Co mments Source [facility] [id number] 20:55:00* Test Item Value Reference Range Interpretation [...] = 3257) . Negative - Negati ve [facility]/O SPECIFIC [id number] 20:55:00* Test Item Value Reference Range Interpretation [...] = 3257) . Negative - Negati ve [facility]
[2023-09-16 21:59] LABS: Specific Gravity 1.017 (1.005-1.030); Urine Bacteria <20 /HPF (<20); Urine Bilirubin NEGATIVE (Negative); Urine Blood Trace (Negative); Urine Clarity Extremely Turbid (Clear); Urine Color Light-Yellow (Yellow); Urine Crystals Unidentified Few /HPF (None Seen); Urine Culture Reflex Order REFLEXED; Urine Glucose NEGATIVE (Negative); Urine Ketones NEGATIVE (Negative); Urine Micro Reflex YN NO BILL MICROSCOPIC; Urine Mucus Slight /HPF (None Seen); Urine Nitrite NEGATIVE (Negative); Urine Protein NEGATIVE (Negative); Urine Urobilinogen Normal (Normal); Urine WBC Clump Rare /HPF (None Seen); Urine pH 6.5 (5.0-7.0)
--- NOTE | 2023-09-16 22:43 | EDPHYS ---
Physician Documentation [facility] Delmy Name: Mitali Law Age: 47 yrs Sex: Female : 1975 Arrival Date: 09/16/2023 Time: 20:22 Bed 12 Private MD: ED Physician Duane Salgado HPI: 09/15 21:00 This 47 yrs old Female presents to ER via Ambulatory with complaints of Vaginal cp Discharge, Vaginal Itching, Vaginal Pain. 21:00 The patient presents with vaginal discharge, that is white discharge, patient has had cp similar discharge in the past, patient reports concern for yeast infection and no improvement with OTC meds. reports prescribed oral meds helped in past. No other complaints. 21:00 The patient is sexually active, reportedly has a single partner. 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 - Infectious Disease History:: Denies. - Social history:: Smoking status: Patient denies any tobacco usage or history of. ROS: 21:05 Constitutional: HX per HPI cp 21:05 All other systems are negative, cp Exam: 21:10 Constitutional: The patient appears in no acute distress, alert, awake, comfortable, cp non-toxic, well developed, well nourished, 21:10 Head/Face: Normocephalic, atraumatic. cp 21:10 Chest/axilla: Inspection: normal, 21:10 Cardiovascular: Rate: normal, 21:10 Respiratory: the patient does not display signs of respiratory distress, Respirations: normal, no use of accessory muscles, no retractions, labored breathing, is not present, 21:10 Abdomen/GI: Exam negative for discomfort, distension, guarding, Inspection: abdomen appears normal, 21:10 Back: pain, is absent, Vital Signs: 20:32 BP 140 / 100; Pulse 96; Resp 20; Temp 97.3; Pulse Ox 99% ; Weight 81.65 kg; Height 5 bm8 ft. 3 in. ; Pain 7/10; 22:49 BP 135 / 98; Pulse 91; Resp 20; Temp 97.3; Pulse Ox 100% ; Pain 7/10; bm8 20:32 Body Mass Index 31.89 (81.65 kg, 160.02 cm) bm8 20:32 Pain Scale: Adult bm8 22:49 Pain Scale: Adult bm8 Murdock Coma Score: 22:49 Eye Response: spontaneous(4). Motor Response: obeys commands(6). Verbal Response: bm8 oriented(5). Total: 15. MDM: 20:32 Patient medically screened. ec2 22:00 Differential diagnosis: farhan infection, cervicitis, pelvic inflammatory disease, cp urinary tract infection, vaginosis. 22:42 Data reviewed: vital signs, nurses notes, lab test result(s), and as a result, I will cp discharge patient. 22:42 Counseling: I had a detailed discussion with the patient and/or guardian regarding the cp historical points, exam findings, and any diagnostic results supporting the discharge/admit diagnosis, lab results, to return to the emergency department if symptoms worsen or persist or if there are any questions or concerns that arise at home. 09/15 20:33 Order name: GC (Deondre/Chl) Probe VAGINAL (Do not order if pt is under 13, order Culture ec2 instead) 09/15 21:16 Order name: Urinalysis W/Microscopic; Complete Time: 22:39 cp 09/15 22:39 Interpretation: Reviewed. cp 09/15 22:03 Order name: Urine Culture EDMS Administered Medications: No medications were administered Disposition Summary: 09/16/23 22:43 Discharge Ordered Notes: Location: Home cp Problem: new cp Symptoms: are unchanged cp Condition: Stable cp Diagnosis - UTI/ Urinary tract infection, site not specified cp - Vaginitis, vulvitis and vulvovaginitis in diseases classified elsewhere cp Followup: cp - With: Private Physician - When: 2 - 3 days - Reason: Worsening of condition Discharge Instructions: - Discharge Summary Sheet cp - Urinary Tract Infection, Adult cp - Vaginal Yeast Infection, Adult cp Forms: - Medication Reconciliation Form cp - Antibiotic Education cp - Prescription Opioid Use cp - Patient Portal Instructions cp - Leadership Thank You Letter cp Prescriptions: - Fluconazole 150 mg Oral tablet - take 1 tablet ORAL route every 2 days; 3 tablet; Refills: 0, Product Selection cp Permitted - Macrobid 100 mg Oral Capsule - take 1 capsule ORAL route every 12 hours for 7 days; 14 capsule; Refills: 0, cp Product Selection Permitted Addendum: 09/23/2023 10:00 I was immediately available for consultation during this patient's visit. I did not e c2 personally see the patient or discuss the patient with the CHUCK. . Signatures: Dispatcher [employer] EDMS Kevan Gay PA PA cp Corral, Edwin, MD MD ec2 Yovanny Brush RN RN bm8 Corrections: (The following items were deleted from the chart) 09/15 20:33 20:33 Wet Prep+BA.LAB.BRZ ordered. EDMS EDMS 20:33 20:33 GC (Deondre/Chl) Probe VAGINAL+R.LAB.BRZ (Do not order if pt is under 13, order EDMS Culture instead) ordered. EDMS 21:16 20:33 Pelvic Exam Setup ordered. ec2 cp 21:17 21:17 Urinalysis W/Microscopic+U.LAB.BRZ ordered. EDMS EDMS
--- NOTE | 2023-09-16 22:43 | ER ---
Nurse's Notes [facility] [place] Name: Mitali Law Age: 47 yrs Sex: Female : 1975 Arrival Date: 09/16/2023 Time: 20:22 Bed 12 Private MD: Diagnosis: UTI/ Urinary tract infection, site not specified;Vaginitis, vulvitis and vulvovaginitis in diseases classified elsewhere Presentation: 09/15 20:32 Chief complaint: Patient states: after taking antibiotics for unrelated issue, i now bm8 have a sever yeast infection and all the otc stuff isnt working and its getting worse. Coronavirus screen: Vaccine status: Patient reports receiving the 1st dose of the Covid vaccine. Ebola Screen: Patient negative for fever greater than or equal to 101.5 degrees Fahrenheit, and additional compatible Ebola Virus Disease symptoms Patient denies exposure to infectious person. Patient denies travel to an Ebola-affected area in the 21 days before illness onset. No symptoms or risks identified at this time. Initial Sepsis Screen: Does the patient meet any 2 criteria? No. Patient's initial sepsis screen is negative. Does the patient have a suspected source of infection? No. Patient's initial sepsis screen is negative. Risk Assessment: Do you want to hurt yourself or someone else? Patient reports no desire to harm self or others. Onset of symptoms was September 11, 2023. 20:32 Method Of Arrival: Ambulatory bm8 20:32 Acuity: JAIR 3 bm8 Triage Assessment: 20:34 General: Appears in no apparent distress. uncomfortable, Behavior is calm, cooperative, bm8 appropriate for age. Pain: Complains of pain in groin Pain does not radiate. Pain currently is 7 out of 10 on a pain scale. Quality of pain is described as burning, itching. EENT: No deficits noted. No signs and/or symptoms were reported regarding the EENT system. Neuro: No deficits noted. Level of Consciousness is awake, alert, obeys commands, Oriented to person, place, time, situation, Moves all extremities. Full function. Cardiovascular: Denies chest pain, Capillary refill < 3 seconds Patient's skin is warm and dry. Respiratory: No deficits noted. Airway is patent Trachea midline Respiratory effort is even, unlabored, Respiratory pattern is regular, symmetrical, Breath sounds are clear bilaterally. GI: No deficits noted. No signs and/or symptoms were reported involving the gastrointestinal system. : Parent/caregiver report the patient having vaginal itching since 10 september. 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 - Infectious Disease History:: Denies. - Social history:: Smoking status: Patient denies any tobacco usage or history of. Screenin:08 [facility] ED Fall Risk Assessment (Adult) History of falling in the last 3 months, nj1 including since admission No falls in past 3 months (0 pts) Confusion or Disorientation No (0 pts) Intoxicated or Sedated No (0 pts) Impaired Gait No (0 pts) Mobility Assist Device Used No (0 pt) Altered Elimination No (0 pt) Score/Fall Risk Level 0 - 2 = Low Risk Oriented to surroundings, Maintained a safe environment, Educated pt \T\ family on fall prevention, incl call for assistance when getting out of bed, Hourly rounding (assess needs \T\ fall precautionary measures) done. Abuse screen: Denies threats or abuse. Denies injuries from another. Nutritional screening: No deficits noted. Tuberculosis screening: No symptoms or risk factors identified. Assessment: 21:07 General: Appears in no apparent distress. uncomfortable, Behavior is calm, cooperative, nj1 appropriate for age. Neuro: Level of Consciousness is awake, alert, obeys commands, Oriented to person, place, time, situation. Cardiovascular: Patient's skin is warm and dry. Respiratory: Airway is patent Respiratory effort is even, unlabored. : Reports discharge, from vagina that is white, vaginal itching. 21:49 Reassessment: Patient appears in no apparent distress at this time. Patient and/or nj1 family updated on plan of care and expected duration. Pain level reassessed. Patient is alert, oriented x 3, equal unlabored respirations, skin warm/dry/pink. 22:49 Reassessment: Patient appears in no apparent distress at this time. No changes from bm8 previously documented assessment. Patient and/or family updated on plan of care and expected duration. Pain level reassessed. Patient is alert, oriented x 3, equal unlabored respirations, skin warm/dry/pink. Patient states symptoms have not improved. Vital Signs: 20:32 BP 140 / 100; Pulse 96; Resp 20; Temp 97.3; Pulse Ox 99% ; Weight 81.65 kg; Height 5 bm8 ft. 3 in. ; Pain 7/10; 22:49 BP 135 / 98; Pulse 91; Resp 20; Temp 97.3; Pulse Ox 100% ; Pain 7/10; bm8 20:32 Body Mass Index 31.89 (81.65 kg, 160.02 cm) bm8 20:32 Pain Scale: Adult bm8 22:49 Pain Scale: Adult bm8 [place] Coma Score: 22:49 Eye Response: spontaneous(4). Motor Response: obeys commands(6). Verbal Response: bm8 oriented(5). Total: 15. ED Course: 20:24 Patient arrived in ED. im 20:32 Duane Salgado MD is Attending Physician. ec2 20:34 Triage completed. bm8 20:34 Arm band placed on right wrist. Patient placed. EKG completed in triage. Results shown bm8 to MD. 20:59 Neida Quintero, GIORGIO is Primary Nurse. nj1 21:09 Patient has correct armband on for positive identification. Bed in low position. Call nj1 light in reach. Provided Education on: call light, fall precautions. 21:15 Kevan Gay PA is PHCP. 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 DC wet nj1 prep. 22:03 Report given to Yovanny ALVARES. nj1 22:49 No provider procedures requiring assistance completed. Patient did not have IV access bm8 during this emergency room visit. Administered Medications: No medications were administered Medication: 22:49 VIS not applicable for this client. bm8 Outcome: 22:43 Discharge ordered by MD. cp 22:49 Discharged to home ambulatory, bm8 22:49 Condition: stable 22:49 Discharge instructions given to patient, Instructed on discharge instructions, follow up and referral plans. no drinking with medication, medication usage, safety practices, Demonstrated understanding of instructions, follow-up care, medications, Prescriptions given X 2, 22:50 Patient left the ED. bm8 Signatures: Kevan Gay PA PA cp Jaco, Norma RN RN nj1 Denise Mcpherson Edwin, MD MD ec2 Yovanny Brush, RN RN bm8
[2023-09-16 23:24] VITALS: BP 135/98; TEMP 97.3; O2SAT 100
[2023-09-20 07:09] LABS: C.trachomatis RNA,TMA Not Detected (Not Detected); N.gonorrhoeae RNA,TMA Not Detected (Not Detected)
== END 2023-09-16 22:50 | disposition home or self-care (01) ==
LOC: ER 20:22
DX: N39.0 Urinary tract infection, site not specified (principal); N77.1 Vaginitis, vulvitis and vulvovaginitis in diseases classified elsewhere; Z88.2 Allergy status to sulfonamides
CPT/HCPCS: 81001; 87077; 87086; 87088; 87186; 87490; 87590; 99283

== ENCOUNTER 2023-11-08 23:59 | Emergency (ER) | payer OTHER ==
--- OUTSIDE RECORDS SUMMARY | 2023-11-09 00:03 | XMS REPORT | Continuity of Care Document ---
Author Name Unknown Address [address] [facility] [facility] [address] [place] [address] [facility] Address [address] [place] [address] Care Team Providers Care Degree Clerk Name Role Phone RAIN SANCHEZ JR Primary Care Physician Ross newsome UNKNOWN, ATTENDING Attending Clinician Unavailab rajesh [email or web address]_S Attending Clinician Unavaila MARCELINA Razo Attending Clinician Unavail able DEBBY TABARES Attending Clinician Unav ailDebby Avendano MD Attending Clinician + Alex Connors Attending Clinician + [phone] ALEX MOSLEY Attending Clinician Unavaila QUETA Wade Attending Clinician Unavailab le Lab, Ang-Rmchp Attending Clinician Unavailable Queta Clemente Attending Clinician +[phone] Marcelina Islas Attending Clinician + Doctor Unassigned, [place] Attending Clinician U navailable Pgy3 Attending Clinician Unavailable Hortencia Ludwig MD Attending Clinician [phone] LUDWIG, HORTENCIA W Attending Clinician Unavailable Elodia [...] Number Effective Date Expirati on Date Source [facility] [id number] 2016 00:00:00 [employer] [facility] [id number] 2021 00:00:00 Problems Condition Name Condition Details [...] evidence of hyperplas ia or malignanc y [facility] Elevated blood pressure reading without diagnosis of hypertensi on Elevated blood pressure reading without diagnosis of hypertensi on Disease Active 05-02 00:00: 00 [facility] Other general counseling and advice for contracept shahla management Other general counseling and advice for contracept shahla management Disease Active 05-03 00:00: 00 [facility] Over weight Over weight Disease Active 05-03 00:00: 00 [facility] Vaginal discharge Vaginal discharge Disease Active 05-03 00:00: 00 [facility] Encounter for screening mammogram for breast cancer Encounter for screening mammogram for breast cancer Disease Active 10-08 00:00: 00 [facility] Urinary tract infection, site unspecifie d Urinary tract infection, site unspecifie d Disease Active 10-08 00:00: 00 [facility] Tobacco use disorder Tobacco use disorder Disease Active 10-08 00:00: 00 [facility] Depression , unspecifie d depression type Depression , unspecifie d depression type Disease Active 10-08 00:00: 00 [facility] History of tubal ligation History of tubal ligation Disease Active 10-08 00:00: 00 [facility] Allergies, Adverse Reactions, Alerts Allergy Name Allergy Type Status Severity Reaction(s) Onset Date Inactive Date Treating Clinician Comments Source ZIPRASID ONE HCL DRUG INGREDI Active Hallucinates 2011-04 00:00: 00 [facility] Ziprasid one Hcl Propensi ty to adverse reaction s Active Hallucinatio ns 2011-04 00:00: 00 [facility] Sulfa (Sulfona mide Antibiot ics) Propensi ty to adverse reaction s Active Itching 12-25 00:00: 00 [facility] SULFA (SULFONA MIDE ANTIBIOT ICS) Drug Class Active ITCHING 12-25 00:00: 00 [facility] Social History Social Habit Start Date Stop Date Quantity Comments Source [facility] of tobacco use Cigarette Smoker [facility] Exposure to SARS-CoV-2 (event) 2022-07-13 00:00:00 2022-07-23 21:06:00 Not sure [facility] Alcohol intake 2021-05-28 00:00:00 2021-05-28 00:00:00 Current non-drinker of alcohol (finding) [facility] History of Social function 2021-05-02 00:00:00 2021-05-02 00:00:00 [facility] Tobacco use and exposure 2020-05-03 00:00:00 2020-05-03 00:00:00 Smokeless tobacco non-user [facility] Tobacco Comment 2016-10-08 00:00:00 2016-10-08 00:00:00 smokes 2 x per day [facility] Sex Ass[birth year] At 1975 00:00:00 1975 00:00:00 [facility] Smoking Status Start Date Stop Date Source Ex-smoker 2020-05-03 00:00:00 2020-05-03 00:00:00 U [facility] Medications Ordered Medication Name Filled Medication Name Start Date Stop Date Current Medication? Ordering Clinician Indication Dosage Frequency Signature (SIG) Comments Components Source traMADoL (ULTRAM) tablet 50 mg 01-12 21:00: 00 01-12 20:51 :00 No 50mg 50 mg, Oral, ONCE NOW, 1 dose, On 01/12/23 at 1600, Routine [facility] ketorolac (TORADOL) injection 30 mg 01-12 20:15: 00 01-12 19:48 :00 No 30mg 30 mg, Intramuscu lar, ONCE, 1 dose, On Fri01/12/23 at 1515, Routine [facility] traMADoL 50 mg tablet 01-12 00:00: 00 01-20 04:59 :00 No [id number] 50mg Take 1 tablet by mouth every 6 (six) hours as needed for Pain (scale 4-6) for up to 7 days. Indication s: acute pain [facility] 105-iron-fo lic ac-dha 30 mg iron- 1.4 mg-300 mg Cmpk 10-23 13:52: 46 Yes Take by mouth. [facility] 105-iron-fo lic ac-dha 30 mg iron- 1.4 mg-300 mg Cmpk 10-23 13:52: 46 Yes Take by mouth. [facility] Nitrofurant oin&Nit. Macrocryst (MACROBID) 100 mg capsule 10-23 00:00: 00 Yes [id number] 100mg Take 1 capsule by mouth 2 (two) times daily. [facility] norethindro ne 0.35 mg tablet 05-28 00:00: 00 Yes [id number] 1{tbl} Take 1 tablet by mouth daily. [facility] ferrous sulfate 325 mg (65 mg iron) tablet 05-28 00:00: 00 Yes [id number] 325mg Take 1 tablet by mouth 2 (two) times daily. [facility] Norethindro ne Acet-Ethiny l Est (LOESTRIN 1.5/, 21,) 1.5-30 mg-mcg per tablet 06-27 00:00: 00 Yes [id number] 1{tbl} Take 1 tablet by mouth daily. [facility] Immunizations Ordered Immunization Name Filled Immunization Name Date Status Comments Source Td 2010-06-03 00:00:00 Completed [facility] Td 2010-06-03 00:00:00 Completed [facility] Td 2010-06-03 00:00:00 Completed [facility] TD, NOS 2010-06-03 00:00:00 Completed [facility] TD, NOS Unknown Completed [facility] TD, NOS Unknown Completed [facility] Vital Signs Vital Name Observation Time Observation Value Comments S ource Systolic blood pressure 2023-01-12 19:16:13 134 mm[Hg] [facility] Diastolic blood pressure 2023-01-12 19:16:13 108 mm[Hg] [facility] Heart rate 2023-01-12 19:16:13 100 /min [facility] Body temperature 2023-01-12 19:16:13 36.78 Lois [facility] Respiratory rate 2023-01-12 19:16:13 16 /min [facility] Body height 2023-01-12 19:15:[address] [facility] Body weight 2023-01-12 19:15:[address] [facility] BMI 2023-01-12 19:15:00 33.02 kg/m2 [facility] Oxygen saturation in Arterial blood by Pulse oximetry 2023-01-12 19:15:00 100 /min [facility] Systolic blood pressure 2022-07-24 02:06:00 159 mm[Hg] [facility] Diastolic blood pressure 2022-07-24 02:06:00 106 mm[Hg] [facility] Heart rate 2022-07-24 02:06:00 90 /min [facility] Body temperature 2022-07-24 02:06:00 36.61 Lois [facility] Respiratory rate 2022-07-24 02:06:00 16 /min [facility] Body height 2022-07-24 02:06:[address] [facility] Body weight 2022-07-24 02:06:[address] [facility] BMI 2022-07-24 02:06:00 31.89 kg/m2 [facility] Oxygen saturation in Arterial blood by Pulse oximetry 2022-07-24 02:06:00 100 /min [facility] Systolic blood pressure 2021-12-04 20:55:00 135 mm[Hg] [facility] Diastolic blood pressure 2021-12-04 20:55:00 92 mm[Hg] [facility] Heart rate 2021-12-04 20:55:00 86 /min [facility] Body temperature 2021-12-04 20:54:00 36.56 Lois [facility] Respiratory rate 2021-12-04 20:54:00 20 /min [facility] Body height 2021-12-04 20:54:[address] [facility] Body weight 2021-12-04 20:54:[address] [facility] BMI 2021-12-04 20:54:00 33.03 kg/m2 [facility] Procedures Procedure Date / Time Performed Performing Clinicia n Source ASSIGNMENT OF BENEFITS 2023-01-12 20:25:03 Docto r Unassigned, [place] [facility] POCT TEST 2023-01-12 19:47:00 Debby Talbert [facility] CONSENT/REFUSAL FOR DIAGNOSIS AND TREATMENT 2023-01-12 19:06:32 Doctor Unassigned, [place] [facility] NOTICE OF PRIVACY PRACTICES 2022-07-24 01:52:33 Doctor Unassigned, [place] [facility] CONSENT/REFUSAL FOR DIAGNOSIS AND TREATMENT 2022-07-24 01:52:12 Doctor Unassigned, [place] [facility] POCT URINALYSIS W/O SPECIFIC GRAVITY 2021-12-04 20:55:00 Marcelina Willson [facility] Encounters Start Date/Time End Date/Time Encounter Type Admission Type Attending [facility] Facility Care Department Encounter ID Source 2023-09-16 20:20:00 2023-09-16 20:20:00 Outpatient R UNKNOWN, [place] [facility] [id number] [facility] 2023-02-16 00:00:00 2023-02-16 00:00:00 Outpatient GC_GCBZW_Ka diyala_S [facility] [id number] [facility] 2023-01-15 13:30:00 2023-01-15 13:30:00 Outpatient R MARCELINA WILLSON [facility] [id number] [facility] 2023-01-12 14:17:00 2023-01-12 16:11:00 Emergency X DEBBY TABARES [facility] ERT [id number] [facility] 2023-01-12 14:17:00 2023-01-12 16:11:00 Emergency AuDebby hager [facility] [id number] 350.1.13.10 4.2.7.2.686 [id number] [facility] 2022-07-23 21:09:00 2022-07-23 22:34:00 Emergency [place] [facility] 1.2.840.114 350.1.13.10 4.2.7.2.686 [id number] [facility] 2022-07-23 21:09:00 2022-07-23 22:34:00 Emergency X ALEX MOSLEY [facility] ERT [id number] [facility] 2022-04-22 13:15:00 2022-04-22 13:15:00 Outpatient R MARCELINA WILLSON [facility] [id number] [facility] 2021-12-05 13:30:00 2021-12-05 13:30:00 Outpatient R [facility] [id number] [facility] 2021-12-05 13:30:00 2021-12-05 13:30:00 Outpatient R QUETA BLAIR [facility] [id number] [facility] 2021-12-05 13:30:00 2021-12-05 13:30:00 Insurance Advisor Visit Lab, Ang-Rmchp Lizabeth Blairapolinar Infante [facility] PAIN MANAGEMENT NURSE [facility] & CHILD [facility] 1.840.114 350.1.13.10 4.2.7.2.686 [id number] [facility] 2021-12-04 15:30:00 2021-12-04 16:27:05 Outpatient R RAY BLAIRHEIDI [facility] [id number] [facility] 2021-12-04 15:30:00 2021-12-04 16:27:05 Office Visit Lizabeth Blairapolinar Infante [facility] PAIN MANAGEMENT NURSE [facility] CHILD [facility] 1.840.114 350.1.13.10 4.2.7.2.686 [id number] [facility] 2021-12-04 15:30:00 2021-12-04 16:27:05 Outpatient R QUETA BLAIR [facility] [id number] [facility] 2021-10-23 13:30:00 2021-10-23 14:13:37 Outpatient R MARCELINA WILLSON [facility] [id number] [facility] 2021-10-23 13:30:00 2021-10-23 14:13:37 Office Visit Marcelina Willson [facility] PAIN MANAGEMENT NURSE [facility] & CHILD [facility] 1.84.114 350.1.13.10 4.2.7.2.686 [id number] [facility] 2021-10-19 00:00:00 2021-10-19 00:00:00 Telephone Marcelina Willson [facility] PAIN MANAGEMENT NURSE [facility] & CHILD [facility] 1.840.114 350.1.13.10 4.2.7.2.686 [id number] [facility] 2021-10-01 15:00:00 2021-10-01 15:00:00 Outpatient R MARCELINA WILLSON [facility] [id number] [facility] 2021-10-01 15:00:00 2021-10-01 15:00:00 Outpatient R CITLALIPE, MARCELINA [facility] [id number] [facility] 2021-10-01 15:00:00 2021-10-01 15:00:00 Outpatient R CITLALIPEMARCELINA [facility] [id number] [facility] 2021-10-01 15:00:00 2021-10-01 15:00:00 Outpatient R CITLALIALVAMARCELINA [facility] [id number] [facility] 2021-08-10 00:00:00 2021-08-10 00:00:00 Telephone Anamika Marcelina Hollis [facility] PAIN MANAGEMENT NURSE [facility] & CHILD [facility] ..840.114 350.1.13.10 4.2.7.2.686 [id number] [facility] 2021-08-08 14:45:00 2021-08-08 15:54:48 Outpatient R MARCELINA WILLSON [facility] [id number] [facility] 2021-08-08 14:45:00 2021-08-08 15:54:48 Office Visit GustaboroelalvaMarcelina [facility] PAIN MANAGEMENT NURSE [facility] & CHILD [facility] ..840.114 350.1.13.10 4.2.7.2.686 [id number] [facility] 2021-06-26 06:35:31 2021-06-26 23:59:00 Outpatient R CITLALIALVAMARCELINA [facility] [id number] [facility] 2021-06-26 06:35:31 2021-06-26 23:59:00 Hospital Encounter Marcelina Willson [facility] 1.840.114 350.1.13.10 4.2.7.2.686 [id number] [facility] 2021-06-26 00:00:00 2021-06-26 00:00:00 Outpatient R MARCELINA WILLSON [facility] [id number] [facility] 2021-06-26 00:00:00 2021-06-26 00:00:00 Outpatient R MARCELINA WILLSON [facility] [id number] [facility] 2021-06-05 00:00:00 2021-06-05 00:00:00 Orders Only Doctor Unassigned, [place] [facility] 1.840.114 350.1.13.10 4.2.7.2.686 [id number] [facility] 2021-06-04 00:00:00 2021-06-04 00:00:00 Patient Secure Msg Marcelina Willson [facility] PAIN MANAGEMENT NURSE [facility] 1..840.114 350.1.13.10 4.2.7.2.686 [id number] [facility] 2021-05-28 14:30:00 2021-05-28 16:27:34 Office Visit Pgy3 Hortencia Ludwig [facility] 1.840.114 350.1.13.10 4.2.7.2.686 [id number] [facility] 2021-05-28 14:30:00 2021-05-28 16:27:34 Outpatient R HORTENCIA LUDWIG [facility] [id number] [facility] 2021-05-28 14:30:00 2021-05-28 16:27:34 Outpatient R HORTENCIA LUDWIG [facility] [id number] [facility] 2021-05-28 14:30:00 2021-05-28 16:27:34 Outpatient R HORTENCIA LUDWIG [facility] [id number] [facility] 2021-05-28 14:30:00 2021-05-28 14:30:00 Outpatient R HORTENCIA LUDWIG [facility] [id number] [facility] 2021-05-16 00:00:00 2021-05-16 00:00:[address] [facility] 1..840.114 350.1.13.10 4.2.7.2.686 [id number] [facility] 2021-05-15 20:15:00 2021-05-15 20:30:38 Outpatient R ROJELIO TODD [facility] [id number] [facility] 2021-05-15 20:15:00 2021-05-15 20:30:38 Outpatient R ROJELIO [facility] [id number] [facility] 2021-05-15 20:15:00 2021-05-15 20:30:00 Laboratory Only Only, Ang Db Test Rojelio [facility] 1..840.114 350.1.13.10 4.2.7.2.686 [id number] [facility] 2021-05-02 14:15:00 2021-05-02 15:54:46 Outpatient R MARCELINA WILLSON [facility] [id number] [facility] 2021-05-02 14:15:00 2021-05-02 15:54:46 Office Visit Marcelina Willson [facility] PAIN MANAGEMENT NURSE [facility] 1..840.114 350.1.13.10 4.2.7.2.686 [id number] [facility] 2021-05-02 14:15:00 2021-05-02 14:15:00 Outpatient R MARCELINA WILLSON [facility] [id number] [facility] 2021-05-02 00:00:00 2021-05-02 00:00:00 Orders Only Doctor Unassigned, [place] [facility] 1.2.840.114 350.1.13.10 4.2.7.2.686 [id number] [facility] 2020-11-21 14:15:00 2020-11-21 14:15:00 Outpatient R ANAMIKAMARCELINA [facility] [id number] [facility] 2020-11-21 14:15:00 2020-11-21 14:15:00 Outpatient R ANAMIKA MARCELINA [facility] [id number] [facility] 2020-09-27 13:15:00 2020-09-27 13:15:00 Outpatient R ANAMIKA MARCELINA [facility] [id number] [facility] 2020-09-27 13:15:00 2020-09-27 13:15:00 Outpatient R ANAMIKA MARCELINA [facility] [id number] [facility] 2020-06-27 16:00:00 2020-06-27 16:00:00 Outpatient R MERCEDEZ LIU [facility] [id number] [facility] 2020-06-21 00:00:00 2020-06-21 00:00:00 Outpatient R ANAMIKA MARCELINA [facility] [id number] [facility] 2020-06-21 00:00:00 2020-06-21 00:00:00 Outpatient R ANAMIKA MARCELINA [facility] [id number] [facility] 2020-05-03 14:30:00 2020-05-03 14:30:00 Outpatient R ANAMIKA MARCELINA [facility] [id number] [facility] Results Test Description Test Time Test Comments Results Result Co mments Source [facility]/O SPECIFIC [id number] 20:55:00* Test Item Value Reference Range Interpretation [...] = 3257) . Negative - Negati ve [facility]/O SPECIFIC [id number] 20:55:00* Test Item Value Reference Range Interpretation [...] = 3257) . Negative - Negati ve [facility]
--- NOTE | 2023-11-09 01:20 | EDPHYS ---
Physician Documentation [facility] Name: Mitali Law Age: 48 yrs Sex: Female : 1975 Arrival Date: 11/08/2023 Time: 23:59 Bed DX4 Private MD: ED Physician Duane Salgado HPI: 11/08 00:31 This 48 yrs old Female presents to ER via Ambulatory with complaints of toe pain. sb4 00:32 patient states that she tried to remove a "hair splinter" from her toe 2 nights ago and sb4 today she noticed the area was purple and very painful. 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 - Infectious Disease History:: Denies. - Social history:: Smoking status: Patient denies any tobacco usage or history of. ROS: 00:32 MS/extremity: Positive for injury or acute deformity, ecchymosis, pain, of the plantar sb4 aspect of left first toe, 00:32 Constitutional: Negative for fever, chills, and weight loss, Exam: 00:32 Constitutional: This is a well developed, well nourished patient who is awake, alert, sb4 and in no acute distress. Head/Face: Normocephalic, atraumatic. Eyes: Extra-ocular motions intact. Periorbital areas with no swelling, redness, or edema. ENT: Mucous membranes moist. 00:32 Skin: injury, bruising noted to plantar aspect of left first toe, pain with palpation, no foreign body identified, Vital Signs: 00:09 BP 165 / 95; Pulse 86; Resp 16; Temp 97.8; Pulse Ox 99% ; Weight 81.65 kg (R); Height 5 jb4 ft. 3 in. ; Pain 9/10; 00:09 Body Mass Index 31.89 (81.65 kg, 160.02 cm) jb4 00:09 Pain Scale: Adult jb4 Procedures: 01:21 Foreign Body Removal: hair splinter, from the left plantar aspect of left first toe, by sb4 incising to remove, using lidocaine 1% with epinephrine to anesthesize the area, Dressinx2, The patient tolerated the removal poorly, removal unsuccessful. MDM: 00:11 Patient medically screened. sb4 01:21 Data reviewed: vital signs, nurses notes, and as a result, I will discharge patient. sb4 Counseling: I had a detailed discussion with the patient and/or guardian regarding the historical points, exam findings, and any diagnostic results supporting the discharge/admit diagnosis, to return to the emergency department if symptoms worsen or persist or if there are any questions or concerns that arise at home. ED course: instructed patient to soak foot in warm water/Epsom salts to promote expulsion . Administered Medications: 01:28 CANCELLED (Physician Discretion): hydrocodone-acetaminophen5 mg-325 mg 1 tabs PO once sb4 02:01 Not Given (Patient Refused): [id number] mg PO once jb4 02:08 Drug: Ibuprofen PO 600 mg PO once {Note: pt refused to take last 200mg.} Route: PO; jb4 Disposition Summary: 11/09/23 01:19 Discharge Ordered Notes: Location: Home sb4 Problem: new sb4 Symptoms: are unchanged sb4 Condition: Stable sb4 Diagnosis - Hair splinter sb4 - Pain in left toe(s) sb4 Followup: sb4 - With: Private Physician - When: 2 - 3 days - Reason: Recheck today's complaints, Re-evaluation by your physician Discharge Instructions: - Discharge Summary Sheet sb4 Forms: - Patient Portal Instructions sb4 - Leadership Thank You Letter sb4 Addendum: 11/10/2023 09:08 I was immediately available for consultation during this patient's visit. I did not e c2 personally see the patient or discuss the patient with the CHUCK. . Signatures: Vipul Bolaños RN RN jb4 Emily Nixon PA-C PAHumphrey sb4 Duane Salgado MD MD ec2 Corrections: (The following items were deleted from the chart) 11/08 01:28 01:20 HYDROcodone-acetaminophen PO 5 mg-325 mg 1 tabs PO once ordered. sb4 sb4
--- NOTE | 2023-11-09 01:20 | ER ---
Nurse's Notes [facility] [place] Name: Mitali Law Age: 48 yrs Sex: Female : 1975 Arrival Date: 11/08/2023 Time: 23:59 Bed DX4 Private MD: Diagnosis: Hair splinter;Pain in left toe(s) Presentation: 11/08 00:09 Chief complaint: Patient states: I have a hair splinter in my toe. I got one out, In jb4 the process I cut my toe. Now it is purple and swollen. Coronavirus screen: At this time, the client does not indicate any symptoms associated with coronavirus-19. Ebola Screen: No symptoms or risks identified at this time. Initial Sepsis Screen: Does the patient meet any 2 criteria? No. Patient's initial sepsis screen is negative. Does the patient have a suspected source of infection? No. Patient's initial sepsis screen is negative. Risk Assessment: Do you want to hurt yourself or someone else? Patient reports no desire to harm self or others. Onset of symptoms was November 09, 2023. Transition of care: patient was not received from another setting of care. 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 - Infectious Disease History:: Denies. - Social history:: Smoking status: Patient denies any tobacco usage or history of. Screenin:[facility] ED Fall Risk Assessment (Adult) History of falling in the last 3 months, jb4 including since admission No falls in past 3 months (0 pts) Confusion or Disorientation No (0 pts) Intoxicated or Sedated No (0 pts) Impaired Gait No (0 pts) Mobility Assist Device Used No (0 pt) Altered Elimination No (0 pt) Score/Fall Risk Level 0 - 2 = Low Risk Oriented to surroundings, Maintained a safe environment. Abuse screen: Denies threats or abuse. Nutritional screening: No deficits noted. Tuberculosis screening: No symptoms or risk factors identified. Assessment: 00:15 General: Appears in no apparent distress. uncomfortable, Behavior is calm, cooperative, jb4 appropriate for age. Pain: Complains of pain in plantar aspect of left first toe Pain does not radiate. Pain currently is 9 out of 10 on a pain scale. Neuro: Level of Consciousness is awake, alert, obeys commands, Oriented to person, place, time, situation. Cardiovascular: Respiratory: Airway is patent Respiratory effort is even, unlabored, Respiratory pattern is regular, symmetrical. GI: No signs and/or symptoms were reported involving the gastrointestinal system. : No signs and/or symptoms were reported regarding the genitourinary system. EENT: No signs and/or symptoms were reported regarding the EENT system. Derm: Skin is intact, Skin is pink, warm \T\ dry. Musculoskeletal: Circulation, motion, and sensation intact. Range of motion: intact in all extremities. 02:06 Reassessment: Patient appears in no apparent distress at this time. Patient and/or jb4 family updated on plan of care and expected duration. Pain level reassessed. Patient is alert, oriented x 3, equal unlabored respirations, skin warm/dry/pink. Vital Signs: 00:09 BP 165 / 95; Pulse 86; Resp 16; Temp 97.8; Pulse Ox 99% ; Weight 81.65 kg (R); Height 5 jb4 ft. 3 in. ; Pain 9/10; 00:09 Body Mass Index 31.89 (81.65 kg, 160.02 cm) jb4 00:09 Pain Scale: Adult jb4 ED Course: 00:06 Patient arrived in ED. ec2 00:11 Triage completed. jb4 00:11 Emily Nixon PA-C is PHCP. sb4 00:11 Duane Salgado MD is Attending Physician. sb4 00:12 Arm band placed on right wrist. jb4 02:06 Patient has correct armband on for positive identification. Bed in low position. Call jb4 light in reach. Side rails up X 1. Provided Education on: discharge instructions.. 02:06 No provider procedures requiring assistance completed. Patient did not have IV access jb4 during this emergency room visit. Administered Medications: 01:28 CANCELLED (Physician Discretion): hydrocodone-acetaminophen5 mg-325 mg 1 tabs PO once sb4 02:01 Not Given (Patient Refused): [id number] mg PO once jb4 02:08 Drug: Ibuprofen PO 600 mg PO once {Note: pt refused to take last 200mg.} Route: PO; jb4 Medication: 02:06 VIS not applicable for this client. jb4 Outcome: :19 Discharge ordered by . sb4 02:06 Discharged to home ambulatory, jb4 02:06 Condition: stable 02:06 Discharge instructions given to patient, Instructed on discharge instructions, follow up and referral plans. Demonstrated understanding of instructions, follow-up care, 02:19 Patient left the ED. jb4 Signatures: Vipul Bolaños RN RN jb4 Emily Nixon, PAEugenieC PA-C sb4 Duane Salgado MD MD ec2 Corrections: (The following items were deleted from the chart) 00:12 00:09 BP 165 / 95; Resp 16bpm; Temp 97.8F; 81.65 kg Reported; Height 5 ft. 3 in.; BMI: jb4 31.8; Pain 9/10, Adult; jb4 02:08 02:01 Ibuprofen PO 600 mg PO jb4 jb4
[2023-11-09] MEDS ORDERED: ACETAMINOPHEN 500 MG TAB ONE (01:53)
[2023-11-09] MEDS ORDERED: IBUPROFEN 200 MG TAB PO ONE (01:53)
[2023-11-13 14:15] VITALS: BP 165/95; TEMP 97.8; O2SAT 99
== END 2023-11-09 02:19 | disposition home or self-care (01) ==
LOC: ER 23:59
PROC: 0JCR0ZZ Extirpation of Matter from Left Foot Subcutaneous Tissue and Fascia, Open Approach (ICD-10-PCS; principal; 2023-11-08)
DX: S91.142A Puncture wound with foreign body of left great toe without damage to nail, initial encounter (principal); X58.XXXA Exposure to other specified factors, initial encounter; Y93.9 Activity, unspecified; Y92.9 Unspecified place or not applicable; Z88.2 Allergy status to sulfonamides
CPT/HCPCS: 99283

== ENCOUNTER 2024-02-03 08:33 | Emergency (ER) | payer OTHER ==
--- OUTSIDE RECORDS SUMMARY | 2024-02-03 08:36 | XMS REPORT | Continuity of Care Document ---
Author Name Unknown Address [address] [facility] [address] [place] [address] [facility] Address [address] [facility] [address] [place] [address] Care Team Providers Care Safety And Security Officer Name Role Phone RAIN SANCHEZ JR Primary Care Physician Ross newsome UNKNOWN, ATTENDING Attending Clinician Unavailab rajesh [email or web address] Attending Clinician Unavaila ble AKINMARCELINA CASTRO Attending Clinician Unavail able Vani Hilton MD Attending Clinician + VANI HILTON Attending Clinician Unav ailALEX Darby Attending Clinician Unavaila ble Alex Connors Attending Clinician + [phone] QUETA BLAIR Attending Clinician Unavailab le Lab, Ang-Rmchp Attending Clinician Unavailable Queta Clemente Attending Clinician [phone] AkinMarcelina Espinoza Attending Clinician + Doctor Unassigned, Mondovi Attending Clinician U navailable Pgy3 Attending Clinician Unavailable Hortencia Ludwig MD Attending Clinician [phone] LUDWIG, HORTENCIA W Attending Clinician Unavailable Elodia Aguillon RN Attending Clinician Unavailable TODD PUGA Attending Clinician Unavailable Only, Ang Db Test Attending Clinician Todd Vivar MD Attending Clinician MERCEDEZ LIU Attending Clinician Angelique choe [email or web address] Admitting Clinician Unavailapolinar koo HOPEJUDIEERMAINE, VANI WANG Admitting Clinician Unav ailable AKINSIMARCELINA CALLE C Admitting Clinician Unavail able Payers Payer Name Policy Type Policy Number Effective Date Expirati on Date Source [facility] [id number] 2016 00:00:00 [facility] [id number] 2021 00:00:00 Problems Condition Name Condition Details [...] evidence of hyperplas ia or malignanc y [facility] Elevated blood pressure reading without diagnosis of hypertensi on Elevated blood pressure reading without diagnosis of hypertensi on Disease Active 05-02 00:00: 00 [facility] Other general counseling and advice for contracept shahla management Other general counseling and advice for contracept shahla management Disease Active 05-03 00:00: 00 [facility] Over weight Over weight Disease Active 05-03 00:00: 00 [facility] Vaginal discharge Vaginal discharge Disease Active 05-03 00:00: 00 [facility] Encounter for screening mammogram for breast cancer Encounter for screening mammogram for breast cancer Disease Active 10-08 00:00: 00 [facility] Urinary tract infection, site unspecifie d Urinary tract infection, site unspecifie d Disease Active 10-08 00:00: 00 [facility] Tobacco use disorder Tobacco use disorder Disease Active 10-08 00:00: 00 [facility] Depression , unspecifie d depression type Depression , unspecifie d depression type Disease Active 10-08 00:00: 00 [facility] History of tubal ligation History of tubal ligation Disease Active 10-08 00:00: 00 [facility] Allergies, Adverse Reactions, Alerts Allergy Name Allergy Type Status Severity Reaction(s) Onset Date Inactive Date Treating Clinician Comments Source ZIPRASID ONE HCL DRUG INGREDI Active Hallucinates 2011-04 00:00: 00 [facility] Ziprasid one Hcl Propensi ty to adverse reaction s Active Hallucinatio ns 2011-04 00:00: 00 [facility] Sulfa (Sulfona mide Antibiot ics) Propensi ty to adverse reaction s Active Itching 12-25 00:00: 00 [facility] SULFA (SULFONA MIDE ANTIBIOT ICS) Drug Class Active ITCHING 12-25 00:00: 00 [facility] Social History Social Habit Start Date Stop Date Quantity Comments [facility] of [facility] use Cigarette Smoker [facility] Exposure to SARS-CoV-2 (event) 2022-07-13 00:00:00 2022-07-23 21:06:00 Not sure [facility] Alcohol intake 2021-05-28 00:00:00 2021-05-28 00:00:00 Current non-drinker of alcohol (finding) [facility] History of Social function 2021-05-02 00:00:00 2021-05-02 00:00:00 [facility] Tobacco use and exposure 2020-05-03 00:00:00 2020-05-03 00:00:00 Smokeless tobacco non-user [facility] Tobacco Comment 2016-10-08 00:00:00 2016-10-08 00:00:00 smokes 2 x per day [facility] Sex Assigned At 1975 00:00:00 1975 00:00:00 [facility] Smoking Status Start Date Stop Date Source Ex-smoker 2020-05-03 00:00:00 2020-05-03 00:00:00 U [facility] Medications Ordered Medication Name Filled Medication Name Start Date Stop Date Current Medication? Ordering Clinician Indication Dosage Frequency Signature (SIG) Comments Components Source traMADoL (ULTRAM) tablet 50 mg 01-12 21:00: 00 01-12 20:51 :00 No 50mg 50 mg, Oral, ONCE NOW, 1 dose, On 01/12/23 at 1600, Routine [facility] ketorolac (TORADOL) injection 30 mg 01-12 20:15: 00 01-12 19:48 :00 No 30mg 30 mg, Intramuscu lar, ONCE, 1 dose, On Fri01/12/23 at 1515, Routine [facility] traMADoL 50 mg tablet 01-12 00:00: 00 01-20 04:59 :00 No [id number] 50mg Take 1 tablet by mouth every 6 (six) hours as needed for Pain (scale 4-6) for up to 7 days. Indication s: acute pain [facility] 105-iron-fo lic ac-dha 30 mg iron- 1.4 mg-300 mg Cmpk 10-23 13:52: 46 Yes Take by mouth. [facility] 105-iron-fo lic ac-dha 30 mg iron- 1.4 mg-300 mg Cmpk 10-23 13:52: 46 Yes Take by mouth. [facility] Nitrofurant oin&Nit. Macrocryst (MACROBID) 100 mg capsule 10-23 00:00: 00 Yes [id number] 100mg Take 1 capsule by mouth 2 (two) times daily. [facility] norethindro ne 0.35 mg tablet 05-28 00:00: 00 Yes [id number] 1{tbl} Take 1 tablet by mouth daily. [facility] ferrous sulfate 325 mg (65 mg iron) tablet 05-28 00:00: 00 Yes [id number] 325mg Take 1 tablet by mouth 2 (two) times daily. [facility] Norethindro ne Acet-Ethiny l Est (LOESTRIN 1.5/, 21,) 1.5-30 mg-mcg per tablet 06-27 00:00: 00 Yes [id number] 1{tbl} Take 1 tablet by mouth daily. [facility] Immunizations Ordered Immunization Name Filled Immunization Name Date Status Comments Source Td 2010-06-03 00:00:00 Completed [facility] Td 2010-06-03 00:00:00 Completed [facility] TD, NOS 2010-06-03 00:00:00 Completed [facility] TD, NOS Unknown Completed [facility] TD, NOS Unknown Completed [facility] Vital Signs Vital Name Observation Time Observation Value Comments S ource Systolic blood pressure 2023-01-12 19:16:13 134 mm[Hg] [facility] Diastolic blood pressure 2023-01-12 19:16:13 108 mm[Hg] [facility] Heart rate 2023-01-12 19:16:13 100 /min [facility] Body temperature 2023-01-12 19:16:13 36.78 Lois [facility] Respiratory rate 2023-01-12 19:16:13 16 /min [facility] Body height 2023-01-12 19:15:00 160 cm [facility] Body weight 2023-01-12 19:15:00 84.55 kg [facility] BMI 2023-01-12 19:15:00 33.02 kg/m2 [facility] Oxygen saturation in Arterial blood by Pulse oximetry 2023-01-12 19:15:00 100 /min [facility] Systolic blood pressure 2022-07-24 02:06:00 159 mm[Hg] [facility] Diastolic blood pressure 2022-07-24 02:06:00 106 mm[Hg] [facility] Heart rate 2022-07-24 02:06:00 90 /min [facility] Body temperature 2022-07-24 02:06:00 36.61 Lois [facility] Respiratory rate 2022-07-24 02:06:00 16 /min [facility] Body height 2022-07-24 02:06:00 160 cm [facility] Body weight 2022-07-24 02:06:00 81.647 kg [facility] BMI 2022-07-24 02:06:00 31.89 kg/m2 [facility] Oxygen saturation in Arterial blood by Pulse oximetry 2022-07-24 02:06:00 100 /min [facility] Systolic blood pressure 2021-12-04 20:55:00 135 mm[Hg] [facility] Diastolic blood pressure 2021-12-04 20:55:00 92 mm[Hg] [facility] Heart rate 2021-12-04 20:55:00 86 /min [facility] Body temperature 2021-12-04 20:54:00 36.56 Lois [facility] Respiratory rate 2021-12-04 20:54:00 20 /min [facility] Body height 2021-12-04 20:54:00 160 cm [facility] Body weight 2021-12-04 20:54:00 84.567 kg [facility] BMI 2021-12-04 20:54:00 33.03 kg/m2 [facility] Procedures Procedure Date / Time Performed Performing Clinicia n Source ASSIGNMENT OF BENEFITS 2023-01-12 20:25:03 Docto r Unassigned, Mondovi [facility] POCT TEST 2023-01-12 19:47:00 Vani Talbert [facility] CONSENT/REFUSAL FOR DIAGNOSIS AND TREATMENT 2023-01-12 19:06:32 Doctor Unassigned, Mondovi [facility] NOTICE OF PRIVACY PRACTICES 2022-07-24 01:52:33 Doctor Unassigned, Mondovi [facility] CONSENT/REFUSAL FOR DIAGNOSIS AND TREATMENT 2022-07-24 01:52:12 Doctor Unassigned, Mondovi [facility] POCT URINALYSIS W/O SPECIFIC GRAVITY 2021-12-04 20:55:00 Marcelina Willson [facility] Encounters Start Date/Time End Date/Time Encounter Type Admission Type Attending Clinicians Care Facility Care Department Encounter ID Source 2023-09-16 20:20:00 2023-09-16 20:20:00 Outpatient R UNKNOWN, ATTENDING [facility] [id number] [facility] 2023-02-16 00:00:00 2023-02-16 00:00:00 Outpatient [email or web address] [email or web address]_S [facility] [id number] [facility] 2023-01-15 13:30:00 2023-01-15 13:30:00 Outpatient R MARCELINA WILLSON [facility] [id number] [facility] 2023-01-12 14:17:00 2023-01-12 16:11:00 Emergency AuVani hager [facility] [id number] 350.1.13.10 4.2.7.2.686 [id number] [facility] 2023-01-12 14:17:00 2023-01-12 16:11:00 Emergency X VANI HILTON [facility] ERT [id number] [facility] 2022-07-23 21:09:00 2022-07-23 22:34:00 Emergency X [facility] ERT [id number] [facility] 2022-07-23 21:09:00 2022-07-23 22:34:00 [facility] [id number] 350.1.13.10 4.2.7.2.686 [id number] [facility] 2022-04-22 13:15:00 2022-04-22 13:15:00 Outpatient R MARCELINA WILLSON [facility] [id number] [facility] 2021-12-05 13:30:00 2021-12-05 13:30:00 Outpatient R [facility] [id number] [facility] 2021-12-05 13:30:00 2021-12-05 13:30:00 Outpatient R QUETA BLAIR [facility] [id number] [facility] 2021-12-05 13:30:00 2021-12-05 13:30:00 Dobby Loom Fixer Visit Lab, [facility] Queta Blair [facility] [address] COMM[facility] & CHILD [facility] [id number] 350.1.13.10 4.2.7.2.686 [id number] [facility] 2021-12-04 15:30:00 2021-12-04 16:27:05 Outpatient R QUETA BLAIR [facility] [id number] [facility] 2021-12-04 15:30:00 2021-12-04 16:27:05 Office Visit Queta Blair [facility] [address] COMM[facility]ER [facility] CHILD [facility] 1.0.114 350.1.13.10 4.2.7.2.686 [id number] [facility] 2021-12-04 15:30:00 2021-12-04 16:27:05 Outpatient R QUETA BLAIR [facility] [id number] [facility] 2021-10-23 13:30:00 2021-10-23 14:13:37 Outpatient R MARCELINA WILLSON [facility] [id number] [facility] 2021-10-23 13:30:00 2021-10-23 14:13:37 Office Visit Marcelina Willson [facility] [address] [facility] & CHILD [facility] 1.0.114 350.1.13.10 4.2.7.2.686 [id number] [facility] 2021-10-19 00:00:00 2021-10-19 00:00:00 Telephone Marcelina Willson [facility] [address] COMM[facility] & CHILD [facility] [id number] 350.1.13.10 4.2.7.2.686 [id number] [facility] 2021-10-01 15:00:00 2021-10-01 15:00:00 Outpatient R MARCELINA WILLSON [facility] [id number] [facility] 2021-10-01 15:00:00 2021-10-01 15:00:00 Outpatient R MARCELINA WILLSON [facility] [id number] [facility] 2021-10-01 15:00:00 2021-10-01 15:00:00 Outpatient R MARCELINA WILLSON [facility] [id number] [facility] 2021-10-01 15:00:00 2021-10-01 15:00:00 Outpatient R MARCELINA WILLSON [facility] [id number] [facility] 2021-08-10 00:00:00 2021-08-10 00:00:00 Telephone Marcelina Willson [facility] [address] COMMISSIONER [facility]NAL & CHILD [facility] .[id number] 350.1.13.10 4.2.7.2.686 [id number] [facility] 2021-08-08 14:45:00 2021-08-08 15:54:48 [facility] [id number] [facility] 2021-08-08 14:45:00 2021-08-08 15:54:48 Office Visit Marcelina Willson [address] [facility] & CHILD [facility] .[id number] 350.1.13.10 4.2.7.2.686 [id number] [facility] 2021-06-26 06:35:31 2021-06-26 23:59:00 [facility] [id number] [facility] 2021-06-26 06:35:31 2021-06-26 23:59:00 Hospital Encounter Marcelina Willson [facility] 1.840.114 350.1.13.10 4.2.7.2.686 [id number] [facility] 2021-06-26 00:00:00 2021-06-26 00:00:00 Outpatient R MARCELINA WILLSON [facility] [id number] [facility] 2021-06-26 00:00:00 2021-06-26 00:00:00 Outpatient R MARCELINA WILLSON [facility] [id number] [facility] 2021-06-05 00:00:00 2021-06-05 00:00:00 Orders Only Doctor Unassigned, Mondovi [facility] 1.840.114 350.1.13.10 4.2.7.2.686 [id number] [facility] 2021-06-04 00:00:00 2021-06-04 00:00:00 Patient Secure Msg Marcelina Willson [facility] [address] COMMISSIONER [facility] MATERNAL & [facility]ILD [facility] 1.840.114 350.1.13.10 4.2.7.2.686 [id number] [facility] 2021-05-28 14:30:00 2021-05-28 16:27:34 Office Visit Pgy3 Hortencia Ludwig [facility] 1.840.114 350.1.13.10 4.2.7.2.686 [id number] [facility] 2021-05-28 14:30:00 2021-05-28 16:27:34 Outpatient R HORTENCIA LUDWIG [facility] [id number] [facility] 2021-05-28 14:30:00 2021-05-28 16:27:34 Outpatient R HORTENCIA LUDWIG [facility] [id number] [facility] 2021-05-28 14:30:00 2021-05-28 16:27:34 Outpatient R HORTENCIA LUDWIG [facility] [id number] [facility] 2021-05-28 14:30:00 2021-05-28 14:30:00 Outpatient R HORTENCIA LUDWIG [facility] [id number] [facility] 2021-05-16 00:00:00 2021-05-16 00:00:00 Telephone Elodia Aguillon [facility] ..840.114 350.1.13.10 4.2.7.2.686 [id number] [facility] 2021-05-15 20:15:00 2021-05-15 20:30:38 Outpatient R ROJELIO TODD [facility] [id number] [facility] 2021-05-15 20:15:00 2021-05-15 20:30:38 Outpatient R ROJELIO [facility] [id number] [facility] 2021-05-15 20:15:00 2021-05-15 20:30:00 Laboratory Only Only, Ang Db Test Rojelio [facility] 1..840.114 350.1.13.10 4.2.7.2.686 [id number] [facility] 2021-05-02 14:15:00 2021-05-02 15:54:46 Outpatient R MARCELINA WILLSON [facility] [id number] [facility] 2021-05-02 14:15:00 2021-05-02 15:54:46 Office Visit Marcelina Willson [facility] [address] COMMISSIONER [facility] MATERNAL & CHILD [facility] ..840.114 350.1.13.10 4.2.7.2.686 [id number] [facility] 2021-05-02 14:15:00 2021-05-02 14:15:00 Outpatient R MARCELINA WILLSON [facility] [id number] [facility] 2021-05-02 00:00:00 2021-05-02 00:00:00 Orders Only Doctor Unassigned, Mondovi [facility] 1.2.840.114 350.1.13.10 4.2.7.2.686 [id number] [facility] 2020-11-21 14:15:00 2020-11-21 14:15:00 Outpatient R MIKAYLA MARCELINA [facility] [id number] [facility] 2020-11-21 14:15:00 2020-11-21 14:15:00 Outpatient R MIKAYLA MARCELINA [facility] [id number] [facility] 2020-09-27 13:15:00 2020-09-27 13:15:00 Outpatient R KATELYN WILLSONOLA [facility] [id number] [facility] 2020-09-27 13:15:00 2020-09-27 13:15:00 Outpatient R KATELYN WILLSONOLA [facility] [id number] [facility] 2020-06-27 16:00:00 2020-06-27 16:00:00 Outpatient MERCEDEZ QUESADA [facility] [id number] [facility] 2020-06-21 00:00:00 2020-06-21 00:00:00 Outpatient R EJFF WILLSONILOLA [facility] [id number] [facility] 2020-06-21 00:00:00 2020-06-21 00:00:00 Outpatient R KATELYN WILLSONOLA [facility] [id number] [facility] 2020-05-03 14:30:00 2020-05-03 14:30:00 Outpatient R JEFF WILLSONILOLA [facility] [id number] [facility] Results Test Description Test Time Test Comments Results Result Co mments Source CULTURE, URINE 2023-12-25 13:29:37 SPECIMEN NUMBER: [id number] CULTURE, URINE SPECIMEN NUMBER: [id number] SOURCE: URINE REPORT STATUS: FINAL ISOLATE NUMBER 1: IDENTIFICATION: 12/25/2023 <10,000 CFU/ML STREPTOCOCCUS AGALACTIAE (GROUP B) ADDITIONAL OBSERVATIONS: Group B Streptococci (Streptococcus agalactiae) are uniformly susceptible to the recommended (Penicillin G) and alternative (Ampicillin or Cefazolin) treatment regimens; therefore susceptibility testing is not indicated for these agents. Resistance to Clindamycin and Erythromycin has been reported. Note: Urine cultures with low colony counts of Group B Streptococcus or urine cultures with mixed growth containing this organism can be an indication of cervicovaginal colonization. The CDC recommends proactive management of all patients with urine cultures positive for Group B Streptococcus. ADDITIONAL OBSERVATIONS: 12/25/2023 10,000 - 100,000 CFU/ML UROGENITAL AYAH PRESENT NO COMMON PATHOGENS POCT [id number] 19:47:00* Test Item Value Reference Range Interpretation Comme nts POCT PREG (test code = 1605) Negative On board controls acceptable with C Line (test code = 3574) Yes POCT PREG LOT # (test code = 3575) [id number] POCT PREG TEST DATE ( test code = 3576) 06-18-2024 Lab Interpretation (test cod e = 66659-1) Normal [facility] URINALYSIS W/O SPECIFIC [id number] 20:55:00* Test Item Value Reference Range Interpretation [...] = 3257) . Negative - Negati ve [facility] URINALYSIS W/O SPECIFIC [id number] 20:55:00* Test Item Value Reference Range Interpretation [...] = 3257) . Negative - Negati ve [facility]
[2024-02-03] MEDS ORDERED: ONDANSETRON 4 MG/2 ML VIAL ONE (09:51)
[2024-02-03] MEDS ORDERED: KETOROLAC 30 MG/ML INJ ONE (09:51)
[2024-02-03] MEDS ORDERED: NA CHLORIDE 0.9% 1,000 ML ONE (09:52)
[2024-02-03 10:39] LABS: Specific Gravity 1.009 (1.005-1.030); Sqamous Epithelial <5 /HPF (None Seen); Urine Bacteria <20 /HPF (<20); Urine Bilirubin NEGATIVE (Negative); Urine Blood Trace (Negative); Urine Clarity Turbid (Clear); Urine Color Colorless (Yellow); Urine Culture Reflex Order NOT NEEDED; Urine Glucose NEGATIVE (Negative); Urine Ketones NEGATIVE (Negative); Urine Microscopic Reflex YN ORDER UMIC; Urine Nitrite NEGATIVE (Negative); Urine Protein NEGATIVE (Negative); Urine RBC <5 /HPF (None Seen); Urine Urobilinogen Normal (Normal); Urine WBC <5 /HPF (<5)
[2024-02-03 11:17] LABS: Absolute Eosinophils 0.1 K/uL (0-0.5); Absolute Lymphocytes (CBC) 1.9 K/uL (0.7-4.9); Absolute Monocytes 0.4 K/uL (0.1-1.3); Absolute Neutrophil 2.9 K/uL (1.8-8.0); Basophils % 0.8 % (0-1.3); Eosinophils % 2.5 % (0-4.4); Hematocrit 38.6 % (36.0-45.0); Hemoglobin 13.1 g/dL (12.0-15.0); Lymphocytes % 35.3 % (15.3-44.8); MCHC 33.8 g/dL (32.0-36.0); MCV 91.7 fL (80-100); MPV 7.6 fL (7.6-11.3); Monocytes % 6.6 % (3.3-12.3); Neutrophils % 54.8 % (41.7-73.7); Platelets 205 thou/uL (152-406); RBC Red Blood Cell Count 4.22 M/uL (3.86-4.86); Red Cell Distribution Width 12.6 % (12.1-15.2)
--- NOTE | 2024-02-03 11:33 | RAD REPORT ---
EXAMINATION: CT ABDOMEN AND PELVIS WITH CONTRAST CLINICAL INDICATION: Abdominal pain TECHNIQUE: CT abdomen and pelvis was performed, after the administration of 100 cc Isovue-300.. Sagit silvestre and coronal reconstructions were obtained. One or more of the following dose reduction techniques were used: Automated exposure control, adjustment of the mA and kV according to patient si ze, and iterative reconstruction. Unless otherwise specified, incidental findings do not require dedicated imaging follow-up. [id number]. Oral contrast was not given which limits evaluation of bowel and appendix. COMPARISON: May 2023 FINDINGS: Fatty liver. The spleen, pancreas, adrenals and kidneys unremarkable Large amount of stool is present throughout the colon. The colon is redundant. No evidence of diverticulitis. No adnexal mass Prominent sclerosis sacroiliac joints probably degenerative or inflammatory in nature.: Is without si gnificant change from the prior exam IMPRESSION: Large amount of stool present throughout the colon
[2024-02-03 11:39] LABS: Albumin 3.1 g/dL (3.4-5.0); Albumin/Globulin Ratio 0.8 (1.1-1.8); Anion Gap 6.8 mEq/L (5.0-15.0); Bilirubin Total 0.3 mg/dL (0.2-1.0); Globulin 3.7 g/dL (2.3-3.5); Potassium 3.8 mEq/L (3.5-5.1); Protein, Total 6.8 g/dL (6.4-8.2)
--- NOTE | 2024-02-03 11:47 | ER ---
Nurse's Notes [facility] Name: Mitali Law Age: 48 yrs Sex: Female : 1975 Arrival Date: 02/03/2024 Time: 08:33 Bed DX4 Private MD: Diagnosis: Constipation, unspecified Presentation: 02/02 09:09 Chief complaint: Patient states: lower back pain started this morning 10/28. Coronavirus iw screen: At this time, the client does not indicate any symptoms associated with coronavirus-19. Ebola Screen: No symptoms or risks identified at this time. Initial Sepsis Screen: Does the patient meet any 2 criteria? No. Patient's initial sepsis screen is negative. Does the patient have a suspected source of infection? No. Patient's initial sepsis screen is negative. Risk Assessment: Do you want to hurt yourself or someone else? Patient reports no desire to harm self or others. 09:09 Method Of Arrival: Ambulatory iw 09:09 Acuity: JAIR 3 iw 10:35 Onset of symptoms is unknown. ap3 Triage Assessment: 09:11 General: Appears in no apparent distress. 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 - Social history:: Smoking status: . Screenin:34 [facility] ED Fall Risk Assessment (Adult) History of falling in the last 3 months, ap3 including since admission No falls in past 3 months (0 pts) Confusion or Disorientation No (0 pts) Intoxicated or Sedated No (0 pts) Impaired Gait No (0 pts) Mobility Assist Device Used No (0 pt) Altered Elimination No (0 pt) Score/Fall Risk Level 0 - 2 = Low Risk Oriented to surroundings, Maintained a safe environment, Educated pt \T\ family on fall prevention, incl call for assistance when getting out of bed, Assessed \T\ reinforced patient's understanding of fall precautions, Hourly rounding (assess needs \T\ fall precautionary measures) done, Used ambulatory aids as needed (educated on \T\ assisted with), Used gait belt as appropriate. Abuse screen: Denies threats or abuse. Nutritional screening: No deficits noted. Tuberculosis screening: No symptoms or risk factors identified. Assessment: 10:33 General: Appears in no apparent distress. Behavior is calm, cooperative, appropriate ap3 for age. Pain: Complains of pain in back. Neuro: Level of Consciousness is awake, alert, obeys commands, Oriented to person, place, time, situation. Respiratory: Airway is patent Respiratory effort is even, unlabored, Respiratory pattern is regular, symmetrical. GI: Abdomen is non-distended, Reports nausea. 12:16 Reassessment: Patient appears in no apparent distress at this time. Patient and/or iw family updated on plan of care and expected duration. Pain level reassessed. Patient is alert, oriented x 3, equal unlabored respirations, skin warm/dry/pink. Vital Signs: 09:11 BP 144 / 95; Pulse 79; Resp 16; Temp 98.6; Pulse Ox 98% on R/A; Pain 7/10; iw 09:11 Pain Scale: Adult iw ED Course: 08:36 Patient arrived in ED. im 09:09 Triage completed. iw 09:11 Duane Salgado MD is Attending Physician. ec2 09:50 Missed attempt(s): 20 gauge in right antecubital area. bc6 10:10 CBC with Diff Sent. bc6 10:10 CMP Sent. bc6 10:10 Lipase Sent. bc6 10:10 Urinalysis w/ reflexes Sent. bc6 10:10 Inserted saline lock: 22 gauge in right antecubital area, using aseptic technique. bc6 Flushed with 10 mL NS. 10:34 Arm band placed on right wrist. ap3 10:[address] chair[address] Provided Education on: fall risk prevention. ap3 11:09 CT Abd/Pelvis - IV Contrast Only In Process Unspecified. EDMS 12:16 Holly Guardado, RN is Primary Nurse. iw 12:16 No provider procedures requiring assistance completed. IV discontinued, intact, iw bleeding controlled, No redness/swelling at site. Pressure dressing applied. Administered Medications: 10:32 Drug: Ketorolac IVP 15 mg IVP once Route: IVP; Site: right antecubital; ap3 12:10 Follow up: Response: No adverse reaction iw 10:33 Drug: NS 0.9% IV 1000 ml IV at 1000 ml once; to be given as a bolus over 60 minutes ap3 Route: IV; Rate: 1000 ml; Site: right antecubital; 11:30 Follow up: IV Status: Completed infusion iw 10:33 Drug: Ondansetron IVP 4 mg IVP once; over 2 minutes Route: IVP; Site: right antecubital;ap3 11:00 Follow up: Response: No adverse reaction iw Medication: 10:35 VIS not applicable for this client. ap3 Outcome: 11:47 Discharge ordered by . ec2 12:17 Discharged to home ambulatory, iw 12:17 Condition: good 12:17 Discharge instructions given to patient, Instructed on discharge instructions, follow up and referral plans. medication usage, Demonstrated understanding of instructions, follow-up care, medications, Prescriptions given X 1, 12:18 Patient left the ED. iw Signatures: Dispatcher [employer] Holly Howard RN GIORGIO iw Inocencia Hernández RN RN ap3 Nazanin Kruger Denise Mcpherson Edwin, MD MD ec2
--- NOTE | 2024-02-03 11:47 | EDPHYS ---
Physician Documentation [facility] Name: Mitali Law Age: 48 yrs Sex: Female : 1975 Arrival Date: 02/03/2024 Time: 08:33 Bed DX4 Private MD: ED Physician Duane Salgado HPI: 02/02 09:57 This 48 yrs old Female presents to ER via Ambulatory with complaints of Low ec2 Back Pain, Nausea. 09:57 Patient arrives today for evaluation of feeling unwell. Patient reports that she has ec2 been experiencing some nausea as well as bilateral low back pain. Patient reports history of urinary tract infections. Patient reports no specific urinary complaints today. Reports that she was previously treated with Macrobid a couple of weeks ago for urinary tract infection. Patient reports otherwise history of opiate abuse, history of methadone use however no longer on medications.. 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 - Social history:: Smoking status: . ROS: 09:57 Constitutional: as per hpi ec2 Exam: 09:57 Constitutional: GEN: NAD Head: atraumatic Eyes: EOMI Ears: External ears are ec2 normal. CV: regular rate LUNGS: no respiratory distress ABD: non-distended, soft, generally tender, not guarding, not rigid SKIN: no evidence of rashes MSK: no evidence of trauma Vital Signs: 09:11 BP 144 / 95; Pulse 79; Resp 16; Temp 98.6; Pulse Ox 98% on R/A; Pain 7/10; iw 09:11 Pain Scale: Adult iw MDM: 09:11 Medical Screening Exam initiated ec2 09:57 Data reviewed: vital signs. ED course: Patient arrives today for feeling unwell as well ec2 as low back pain and nausea. Examination remarkable for nontoxic individual who is hemodynamically stable with a reassuring examination. Will obtain lab work, CT imaging. Differential diagnosis include process such as urinary tract infection, pyelonephritis, ureteral stone, generalized abdominal pain.. 11:45 ED course: Labs are nonactionable. CT imaging shows constipation. Will discharge home. ec2 Return precautions given. 02/02 09:30 Order name: CBC with Diff; Complete Time: 11:45 ec2 02/02 09:30 Order name: CMP; Complete Time: 11:45 ec2 02/02 09:30 Order name: Lipase; Complete Time: 11:45 ec2 02/02 09:30 Order name: Urinalysis w/ reflexes; Complete Time: 10:49 ec2 02/02 09:30 Order name: CT Abd/Pelvis - IV Contrast Only; Complete Time: 11:45 ec2 02/02 09:30 Order name: IV Saline Lock; Complete Time: 10:10 ec2 02/02 09:30 Order name: Labs collected and sent; Complete Time: 10:10 ec2 02/02 10:41 Order name: Labs - recollect needed: green and lavender; Complete Time: 11:04 iw Administered Medications: 10:32 Drug: Ketorolac IVP 15 mg IVP once Route: IVP; Site: right antecubital; ap3 12:10 Follow up: Response: No adverse reaction iw 10:33 Drug: NS 0.9% IV 1000 ml IV at 1000 ml once; to be given as a bolus over 60 minutes ap3 Route: IV; Rate: 1000 ml; Site: right antecubital; 11:30 Follow up: IV Status: Completed infusion iw 10:33 Drug: Ondansetron IVP 4 mg IVP once; over 2 minutes Route: IVP; Site: right antecubital;ap3 11:00 Follow up: Response: No adverse reaction iw Disposition Summary: 02/03/24 11:47 Discharge Ordered Notes: Location: Home ec2 Condition: Stable ec2 Diagnosis - Constipation, unspecified ec2 Discharge Instructions: - Discharge Summary Sheet ec2 - Constipation, Adult ec2 Forms: - Medication Reconciliation Form ec2 - Antibiotic Education ec2 - Prescription Opioid Use ec2 - Patient Portal Instructions ec2 - Leadership Thank You Letter ec2 Prescriptions: - Lactulose 10 gram/15 mL Oral Solution - take 30 milliliters ORAL route once daily; 300 milliliter; Refills: 0, Product ec2 Selection Permitted Signatures: Dispatcher [employer] Holly Howard RN RN iw Inocencia Hernández RN RN ap3 Salgado, Duane, MD MD ec2
[2024-02-03 13:38] VITALS: BP 144/95; TEMP 98.6; O2SAT 98
== END 2024-02-03 12:18 | disposition home or self-care (01) ==
LOC: ER 08:33
DX: K59.00 Constipation, unspecified (principal)
CPT/HCPCS: 85025; 81001; 36415; 83690; 80053; 74177; Q9967; J2405; J7030; 96361; 96374; 96375; 99284

== ENCOUNTER 2024-06-17 13:55 | Emergency (ER) | payer OTHER ==
--- OUTSIDE RECORDS SUMMARY | 2024-06-17 13:58 | XMS REPORT | Continuity of Care Document ---
Author Name Unknown Address [address] [facility] [address] [place] [address] [facility] Address [address] [facility] [address] [place] [address] Care Team Providers Care Bank Advisor Name Role Phone RAIN SANCHEZ JR Primary Care Physician Ross newsome UNKNOWN, ATTENDING Attending Clinician Unavailab rajesh [email or web address]_S Attending Clinician Unavaila MARCELINA Razo Attending Clinician Unavail able DEBBY HILTON Attending Clinician Unav ailDebby Avendano MD Attending Clinician + Alex Connors Attending Clinician + [phone] ALEX MOSLEY Attending Clinician Unavaila QUETA Wade Attending Clinician Unavailab le Lab, Ang-Rmchp Attending Clinician Unavailable Queta Clemente Attending Clinician [phone] Marcelina Islas Attending Clinician + Doctor Unassigned, [place] Attending Clinician U navailable Pgy3 Attending Clinician Unavailable Hortencia Ludwig MD Attending Clinician [phone] LUDWIG, HORTENCIA W Attending Clinician Unavailable Elodia [...] Number Effective Date Expirati on Date Source [facility] [id number] 2016 00:00:[address] [employer] [facility] [id number] 2021 00:00:00 Problems Condition Name Condition Details [...] evidence of hyperplas ia or malignanc y [facility] Elevated blood pressure reading without diagnosis of hypertensi on Elevated blood pressure reading without diagnosis of hypertensi on Disease Active 05-02 00:00: 00 [facility] Other general counseling and advice for contracept shahla management Other general counseling and advice for contracept shahla management Disease Active 05-03 00:00: 00 [facility] Over weight Over weight Disease Active 05-03 00:00: 00 [facility] Vaginal discharge Vaginal discharge Disease Active 05-03 00:00: 00 [facility] Encounter for screening mammogram for breast cancer Encounter for screening mammogram for breast cancer Disease Active 10-08 00:00: 00 [facility] Urinary tract infection, site unspecifie d Urinary tract infection, site unspecifie d Disease Active 10-08 00:00: 00 [facility] Tobacco use disorder Tobacco use disorder Disease Active 10-08 00:00: 00 [facility] Depression , unspecifie d depression type Depression , unspecifie d depression type Disease Active 10-08 00:00: 00 [facility] History of tubal ligation History of tubal ligation Disease Active 10-08 00:00: 00 [facility] Allergies, Adverse Reactions, Alerts Allergy Name Allergy Type Status Severity Reaction(s) Onset Date Inactive Date Treating Clinician Comments Source ZIPRASID ONE HCL DRUG INGREDI Active Hallucinates 2011-04 00:00: 00 [facility] Ziprasid one Hcl Propensi ty to adverse reaction s Active Hallucinatio ns 2011-04 00:00: 00 [facility] Sulfa (Sulfona mide Antibiot ics) Propensi ty to adverse reaction s Active Itching 12-25 00:00: 00 [facility] SULFA (SULFONA MIDE ANTIBIOT ICS) Drug Class Active ITCHING 12-25 00:00: 00 [facility] Social History Social Habit Start Date Stop Date Quantity Comments Source [facility] use Cigarette Smoker [facility] Exposure to SARS-CoV-2 (event) 2022-07-13 00:00:00 2022-07-23 21:06:00 Not sure [facility] Alcohol intake 2021-05-28 00:00:00 2021-05-28 00:00:00 Current non-drinker of alcohol (finding) [facility] History of Social function 2021-05-02 00:00:00 2021-05-02 00:00:00 [facility] Tobacco use and exposure 2020-05-03 00:00:00 2020-05-03 00:00:00 Smokeless tobacco non-user [facility] Tobacco Comment 2016-10-08 00:00:00 2016-10-08 00:00:00 smokes 2 x per day [facility] Sex Assigned At 1975 00:00:00 1975 00:00:00 [facility] Smoking Status Start Date Stop Date Source Ex-smoker 2020-05-03 00:00:00 2020-05-03 00:00:00 [facility] Medications Ordered Medication Name Filled Medication Name Start Date Stop Date Current Medication? Ordering Clinician Indication Dosage Frequency Signature (SIG) Comments Components Source traMADoL (ULTRAM) tablet 50 mg 01-12 21:00: 00 01-12 20:51 :00 No 50mg 50 mg, Oral, ONCE NOW, 1 dose, On 01/12/23 at 1600, Routine [facility] ketorolac (TORADOL) injection 30 mg 01-12 20:15: 00 01-12 19:48 :00 No 30mg 30 mg, Intramuscu lar, ONCE, 1 dose, On Fri01/12/23 at 1515, Routine [facility] traMADoL 50 mg tablet 01-12 00:00: 00 01-20 04:59 :00 No [id number] 50mg Take 1 tablet by mouth every 6 (six) hours as needed for Pain (scale 4-6) for up to 7 days. Indication s: acute pain [facility] 105-iron-fo lic ac-dha 30 mg iron- 1.4 mg-300 mg Cmpk 10-23 13:52: 46 Yes Take by mouth. [facility] 105-iron-fo lic ac-dha 30 mg iron- 1.4 mg-300 mg Cmpk 10-23 13:52: 46 Yes Take by mouth. [facility] Nitrofurant oin&Nit. Macrocryst (MACROBID) 100 mg capsule 10-23 00:00: 00 Yes [id number] 100mg Take 1 capsule by mouth 2 (two) times daily. [facility] norethindro ne 0.35 mg tablet 05-28 00:00: 00 Yes [id number] 1{tbl} Take 1 tablet by mouth daily. [facility] ferrous sulfate 325 mg (65 mg iron) tablet 05-28 00:00: 00 Yes [id number] 325mg Take 1 tablet by mouth 2 (two) times daily. [facility] Norethindro ne Acet-Ethiny l Est (LOESTRIN 1.5/, 21,) 1.5-30 mg-mcg per tablet 06-27 00:00: 00 Yes [id number] 1{tbl} Take 1 tablet by mouth daily. [facility] Immunizations Ordered Immunization Name Filled Immunization Name Date Status Comments Source Td 2010-06-03 00:00:00 Completed [facility] Td 2010-06-03 00:00:00 Completed [facility] TD, NOS 2010-06-03 00:00:00 Completed [facility] TD, NOS Unknown Completed [facility] TD, NOS Unknown Completed [facility] Vital Signs Vital Name Observation Time Observation Value Comments S ource Systolic blood pressure 2023-01-12 19:16:13 134 mm[Hg] [facility] Diastolic blood pressure 2023-01-12 19:16:13 108 mm[Hg] [facility] Heart rate 2023-01-12 19:16:13 100 /min [facility] Body temperature 2023-01-12 19:16:13 36.78 Lois [facility] Respiratory rate 2023-01-12 19:16:13 16 /min [facility] Body height 2023-01-12 19:15:00 160 cm [facility] Body weight 2023-01-12 19:15:00 84.55 kg [facility] BMI 2023-01-12 19:15:00 33.02 kg/m2 [facility] Oxygen saturation in Arterial blood by Pulse oximetry 2023-01-12 19:15:00 100 /min [facility] Systolic blood pressure 2022-07-24 02:06:00 159 mm[Hg] [facility] Diastolic blood pressure 2022-07-24 02:06:00 106 mm[Hg] [facility] Heart rate 2022-07-24 02:06:00 90 /min [facility] Body temperature 2022-07-24 02:06:00 36.61 Lois [facility] Respiratory rate 2022-07-24 02:06:00 16 /min [facility] Body height 2022-07-24 02:06:00 160 cm [facility] Body weight 2022-07-24 02:06:00 81.647 kg [facility] BMI 2022-07-24 02:06:00 31.89 kg/m2 [facility] Oxygen saturation in Arterial blood by Pulse oximetry 2022-07-24 02:06:00 100 /min [facility] Systolic blood pressure 2021-12-04 20:55:00 135 mm[Hg] [facility] Diastolic blood pressure 2021-12-04 20:55:00 92 mm[Hg] [facility] Heart rate 2021-12-04 20:55:00 86 /min [facility] Body temperature 2021-12-04 20:54:00 36.56 Lois [facility] Respiratory rate 2021-12-04 20:54:00 20 /min [facility] Body height 2021-12-04 20:54:00 160 cm [facility] Body weight 2021-12-04 20:54:00 84.567 kg [facility] BMI 2021-12-04 20:54:00 33.03 kg/m2 [facility] Procedures Procedure Date / Time Performed Performing Clinicia n Source ASSIGNMENT OF BENEFITS 2023-01-12 20:25:03 Docto r Unassigned, [place] [facility] POCT TEST 2023-01-12 19:47:00 Debby Talbert [facility] CONSENT/REFUSAL FOR DIAGNOSIS AND TREATMENT 2023-01-12 19:06:32 Doctor Unassigned, [place] [facility] NOTICE OF PRIVACY PRACTICES 2022-07-24 01:52:33 Doctor Unassigned, [place] [facility] CONSENT/REFUSAL FOR DIAGNOSIS AND TREATMENT 2022-07-24 01:52:12 Doctor Unassigned, [place] [facility] POCT URINALYSIS W/O SPECIFIC GRAVITY 2021-12-04 20:55:00 Marcelina Willson [facility] Encounters Start Date/Time End Date/Time Encounter Type Admission Type Attending Clinicians Care Facility Care Department Encounter ID Source 2023-09-16 20:20:00 2023-09-16 20:20:00 Outpatient R UNKNOWN, ATTENDING [facility] [id number] [facility] 2023-02-16 00:00:00 2023-02-16 00:00:00 Outpatient GC_GCBZW_Ka diyala_S [facility] [id number] [facility] 2023-01-15 13:30:00 2023-01-15 13:30:00 Outpatient R MARCELINA WILLSON [facility] [id number] [facility] 2023-01-12 14:17:00 2023-01-12 16:11:00 Emergency X DEBBY HILTON [facility] ERT [id number] [facility] 2023-01-12 14:17:00 2023-01-12 16:11:00 Emergency Debby Hilton [facility] [id number] 350.1.13.10 [id number] [id number] [facility] 2022-07-23 21:09:00 2022-07-23 22:34:00 [facility] [id number] 350.1.13.10 4.2.7.2.686 [id number] [facility] 2022-07-23 21:09:00 2022-07-23 22:34:00 Emergency X ALEX MOSLEY [facility] ERT [id number] [facility] 2022-04-22 13:15:00 2022-04-22 13:15:00 Outpatient R MARCELINA WILLSON [facility] [id number] [facility] 2021-12-05 13:30:00 2021-12-05 13:30:00 Outpatient R [facility] [id number] [facility] 2021-12-05 13:30:00 2021-12-05 13:30:00 Outpatient R QUETA BLAIR [facility] [id number] [facility] 2021-12-05 13:30:00 2021-12-05 13:30:00 Sales And Marketing Administrator Visit Lab, [facility] Queta Blair [facility] MACHINE OPERATOR [facility] CHILD [facility] [id number] 350.1.13.10 4.2.7.2.686 [id number] [facility] 2021-12-04 15:30:00 2021-12-04 16:27:05 Outpatient R QUETA BLAIR [facility] [id number] [facility] 2021-12-04 15:30:00 2021-12-04 16:27:05 Office Visit Queta Blair [facility] BE[facility] MACHINE OPERATOR [facility] CHILD [facility] 1.0.114 350.1.13.10 4.2.7.2.686 [id number] [facility] 2021-12-04 15:30:00 2021-12-04 16:27:05 Outpatient R QUETA BLAIR [facility] [id number] [facility] 2021-10-23 13:30:00 2021-10-23 14:13:37 Outpatient R MARCELINA WILLSON [facility] [id number] [facility] 2021-10-23 13:30:00 2021-10-23 14:13:37 Office Visit Marcelina Willson [facility] BEATER MACHINE OPERATOR [facility] & CHILD [facility] 1.0.114 350.1.13.10 4.2.7.2.686 [id number] [facility] 2021-10-19 00:00:00 2021-10-19 00:00:00 Telephone Marcelina Willson [facility] BEATER MACHINE OPERATOR [facility] CHILD [facility] [id number] 350.1.13.10 4.2.7.2.686 [id number] [facility] 2021-10-01 15:00:00 2021-10-01 15:00:00 Outpatient R MARCELINA WILLSON [facility] [id number] [facility] 2021-10-01 15:00:00 2021-10-01 15:00:00 Outpatient R MARCELINA WILLSON [facility] [id number] [facility] 2021-10-01 15:00:00 2021-10-01 15:00:00 Outpatient R MARCELINA WILLSON [facility] [id number] [facility] 2021-10-01 15:00:00 2021-10-01 15:00:00 Outpatient R MARCELINA WILLSON [facility] [id number] [facility] 2021-08-10 00:00:00 2021-08-10 00:00:00 Telephone Marcelina Willson [facility] BEATER MACHINE OPERATOR [facility] & CHILD [facility] .[id number] 350.1.13.10 4.2.7.2.686 [id number] [facility] 2021-08-08 14:45:00 2021-08-08 15:54:48 [id number] [facility] 2021-08-08 14:45:00 2021-08-08 15:54:48 Office Visit Marcelina Willson [facility] BEATER MACHINE OPERATOR [facility] CHILD [facility] .[id number] 350.1.13.10 4.2.7.2.686 [id number] [facility] 2021-06-26 06:35:31 2021-06-26 23:59:00 [facility] [id number] [facility] 2021-06-26 06:35:31 2021-06-26 23:59:00 Hospital Encounter Marcelina Willson [facility] 1.840.114 350.1.13.10 4.2.7.2.686 [id number] [facility] 2021-06-26 00:00:00 2021-06-26 00:00:00 Outpatient R MARCELINA WILLSON [facility] [id number] [facility] 2021-06-26 00:00:00 2021-06-26 00:00:00 Outpatient R MARCELINA WILLSON [facility] [id number] [facility] 2021-06-05 00:00:00 2021-06-05 00:00:00 Orders Only Doctor Unassigned, [place] [facility] 1.840.114 350.1.13.10 4.2.7.2.686 [id number] [facility] 2021-06-04 00:00:00 2021-06-04 00:00:00 Patient Secure Msg Marcelina Willson [facility] BEATER MACHINE OPERATOR [facility] & CHILD [facility] 1.840.114 350.1.13.10 4.2.7.2.686 [id number] [facility] 2021-05-28 14:30:00 2021-05-28 16:27:34 Office Visit Pgy3 Hortencia Ludwig [facility] 1.840.114 350.1.13.10 4.2.7.2.686 [id number] [facility] 2021-05-28 14:30:00 2021-05-28 16:27:34 Outpatient R HORTENCIA LUDWIG [facility] [id number] [facility] 2021-05-28 14:30:00 2021-05-28 16:27:34 Outpatient R HORTENCIA LUDWIG [facility] [id number] [facility] 2021-05-28 14:30:00 2021-05-28 16:27:34 Outpatient R HORTENCIA LUDWIG [facility] [id number] [facility] 2021-05-28 14:30:00 2021-05-28 14:30:00 Outpatient R HORTENCIA LUDWIG [facility] [id number] [facility] 2021-05-16 00:00:00 2021-05-16 00:00:00 Telephone Elodia Aguillon [facility] ..840.114 350.1.13.10 4.2.7.2.686 [id number] [facility] 2021-05-15 20:15:00 2021-05-15 20:30:38 Outpatient R ROJELIO TODD [facility] [id number] [facility] 2021-05-15 20:15:00 2021-05-15 20:30:38 Outpatient R ROJELIO [facility] [id number] [facility] 2021-05-15 20:15:00 2021-05-15 20:30:00 Laboratory Only Only, Ang Db Test Rojelio Counts include 234 beds at the [facility] 1..840.114 350.1.13.10 4.2.7.2.686 [id number] [facility] 2021-05-02 14:15:00 2021-05-02 15:54:46 Outpatient R MARCELINA WILLSON [facility] [id number] [facility] 2021-05-02 14:15:00 2021-05-02 15:54:46 Office Visit Marcelina Willson [facility] BEATER MACHINE OPERATOR [facility] ..840.114 350.1.13.10 4.2.7.2.686 [id number] [facility] 2021-05-02 14:15:00 2021-05-02 14:15:00 Outpatient R MARCELINA WILLSON [facility] [id number] [facility] 2021-05-02 00:00:00 2021-05-02 00:00:00 Orders Only Doctor Unassigned, [place] [facility] [id number] 350.1.13.10 4.2.7.2.686 [id number] [facility] 2020-11-21 14:15:00 2020-11-21 14:15:00 Outpatient R MIKAYLA MARCELINA [facility] [id number] [facility] 2020-11-21 14:15:00 2020-11-21 14:15:00 Outpatient R MIKAYLA MARCELINA [facility] [id number] [facility] 2020-09-27 13:15:00 2020-09-27 13:15:00 Outpatient R KATELYN WILLSONOLA [facility] [id number] [facility] 2020-09-27 13:15:00 2020-09-27 13:15:00 Outpatient R KATELYN WILLSONOLA [facility] [id number] [facility] 2020-06-27 16:00:00 2020-06-27 16:00:00 Outpatient MERCEDEZ QUESADA [facility] [id number] [facility] 2020-06-21 00:00:00 2020-06-21 00:00:00 Outpatient R EJFF WILLSONILOLA [facility] [id number] [facility] 2020-06-21 00:00:00 2020-06-21 00:00:00 Outpatient R KATELYN WILLSONOLA [facility] [id number] [facility] 2020-05-03 14:30:00 2020-05-03 14:30:00 Outpatient R JEFF WILLSONILOLA [facility] [id number] [facility] Results Test Description Test Time Test Comments Results Result Co mments Source CULTURE, URINE 2023-12-25 13:29:37 SPECIMEN NUMBER: [id number] CULTURE, URINE SPECIMEN NUMBER: [id number] SOURCE: URINE REPORT STATUS: FINAL ISOLATE NUMBER [...] UROGENITAL AYAH PRESENT NO COMMON PATHOGENS POCT [id number] 19:47:00* Test Item Value Reference Range Interpretation Comme nts POCT PREG (test code = 1605) Negative On board controls acceptable with C Line (test code = 3574) Yes POCT PREG LOT # (test code = 3575) [id number] POCT PREG TEST DATE ( test code = 3576) 06-18-2024 Lab Interpretation (test cod e = 98807-0) Normal [facility] URINALYSIS W/O SPECIFIC [id number] 20:55:00* Test Item Value Reference Range Interpretation [...] = 3257) . Negative - Negati ve [facility] URINALYSIS W/O SPECIFIC [id number] 20:55:00* Test Item Value Reference Range Interpretation [...] = 3257) . Negative - Negati ve [facility]
[2024-06-17] MEDS ORDERED: dexAMETHasone 10 MG/ML VIAL ONE (15:03)
--- NOTE | 2024-06-17 15:11 | ER ---
Nurse's Notes [facility] [place] Name: Mitali Law Age: 48 yrs Sex: Female : 1975 Arrival Date: 06/17/2024 Time: 13:55 Bed DX4 Private MD: Diagnosis: Strain of muscle(s) and tendon(s) of the rotator cuff of left shoulder Presentation: 06/17 14:26 Chief complaint: Patient states: she is having left shoulder pain that started ap3 yesterday. 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 patient currently rates her pain as an 8/10 on the pain scale. Coronavirus screen: At this time, the client does not indicate any symptoms associated with coronavirus-19. Ebola Screen: No symptoms or risks identified at this time. Initial Sepsis Screen: Does the patient meet any 2 criteria? No. Patient's initial sepsis screen is negative. Does the patient have a suspected source of infection? No. Patient's initial sepsis screen is negative. Risk Assessment: Do you want to hurt yourself or someone else? Patient reports no desire to harm self or others. Onset of symptoms was June 16, 2024. 14:26 Method Of Arrival: Ambulatory ap3 14:26 Acuity: JAIR 4 ap3 Triage Assessment: 14:29 General: Appears in no apparent distress. Behavior is calm, cooperative, appropriate ap3 for age. Pain: Complains of pain in left shoulder Pain currently is 8 out of 10 on a pain scale. Neuro: Level of Consciousness is awake, alert, obeys commands, Oriented to person, place, time, situation, Appropriate for age. Cardiovascular: Patient's skin is warm and dry. Respiratory: Airway is patent Respiratory effort is even, unlabored, Respiratory pattern is regular, symmetrical. Musculoskeletal: Range of motion: intact in all extremities. 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 - Infectious Disease History:: Denies. - Social history:: Smoking status: Patient denies any tobacco usage or history of. - Family history:: not pertinent. - Hospitalizations: : No recent hospitalization is reported. Screenin:29 [facility] ED Fall Risk Assessment (Adult) History of falling in the last 3 months, ap3 including since admission No falls in past 3 months (0 pts) Confusion or Disorientation No (0 pts) Intoxicated or Sedated No (0 pts) Impaired Gait No (0 pts) Mobility Assist Device Used No (0 pt) Altered Elimination No (0 pt) Score/Fall Risk Level 0 - 2 = Low Risk Oriented to surroundings, Maintained a safe environment, Educated pt \T\ family on fall prevention, incl call for assistance when getting out of bed, Assessed \T\ reinforced patient's understanding of fall precautions, Hourly rounding (assess needs \T\ fall precautionary measures) done, Used ambulatory aids as needed (educated on \T\ assisted with). Abuse screen: Denies threats or abuse. Nutritional screening: No deficits noted. Tuberculosis screening: No symptoms or risk factors identified. Assessment: 15:00 General: Appears in no apparent distress. Behavior is calm, cooperative. Pain: Pain hb currently is 8 out of 10 on a pain scale. Neuro: Level of Consciousness is awake, alert, obeys commands, Oriented to person, place, time, situation. Cardiovascular: Patient's skin is warm and dry. Respiratory: Respiratory effort is even, unlabored, Respiratory pattern is regular, symmetrical. GI: No signs and/or symptoms were reported involving the gastrointestinal system. : No signs and/or symptoms were reported regarding the genitourinary system. EENT: No signs and/or symptoms were reported regarding the EENT system. Derm: Skin is pink, warm \T\ dry. Musculoskeletal: Reports left shoulder pain. Vital Signs: 14:26 BP 155 / 97; Pulse 84; Resp 18; Temp 98.4; Pulse Ox 100% ; Weight 81.65 kg; Height 5 ap3 ft. 3 in. ; Pain 8/10; 14:26 Body Mass Index 31.89 (81.65 kg, 160.02 cm) ap3 14:26 Pain Scale: Adult ap3 ED Course: 14:00 Patient arrived in ED. mr 14:01 Geovanni Reid MD is Attending Physician. rn 14:28 Triage completed. ap3 14:29 Arm band placed on right wrist. ap3 15:30 Patient has correct armband on for positive identification. Provided Education on: hb medications, follow up. 15:30 No provider procedures requiring assistance completed. Patient did not have IV access hb during this emergency room visit. 15:38 Jadyn Flaherty, RN is Primary Nurse. hb Administered Medications: 15:06 Drug: Dexamethasone IM 10 mg IM once Route: IM; Site: left deltoid; hb 15:31 Follow up: Response: No adverse reaction hb Medication: 15:30 VIS not applicable for this client. hb Outcome: 15:11 Discharge ordered by . rn 15:35 Discharged to home ambulatory, 15:35 Condition: stable 15:35 Discharge instructions given to patient, Instructed on discharge instructions, follow up and referral plans. medication usage, Demonstrated understanding of instructions, follow-up care, medications, Prescriptions given X 1, 15:38 Patient left the ED. hb Signatures: Juanita Das, Reg Geovanni Ceballos MD MD rn Baxter, Heather, RN RN Inocencia Hernández RN RN ap3
--- NOTE | 2024-06-17 15:11 | EDPHYS ---
Physician Documentation [facility] Name: Mitali Law Age: 48 yrs Sex: Female : 1975 Arrival Date: 06/17/2024 Time: 13:55 Bed DX4 Private MD: ED Physician Geovanni Reid HPI: 06/17 15:07 This 48 yrs old Female presents to ER via Ambulatory with complaints of Shoulder Pain. rn 15:07 The patient or guardian complains of pain. left shoulder. 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 Has had tendinitis of the right shoulder and now having pain in the left shoulder.. 15:07 Patient denies any fall or direct trauma. No chest pain or shortness of breath. No rn weakness.. 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 - Infectious Disease History:: Denies. - Social history:: Smoking status: Patient denies any tobacco usage or history of. - Family history:: not pertinent. - Hospitalizations: : No recent hospitalization is reported. ROS: 15:07 Constitutional: Negative for fever, chills, and weight loss, Cardiovascular: Negative rn for chest pain, palpitations, and edema, Respiratory: Negative for shortness of breath, cough, wheezing, and pleuritic chest pain, Abdomen/GI: Negative for abdominal pain, nausea, vomiting, diarrhea, and constipation, MS/Extremity: Positive for left shoulder pain Skin: Negative for injury, rash, and discoloration, Neuro: Negative for headache, weakness, numbness, tingling, and seizure, Exam: 15:07 Constitutional: This is a well developed, well nourished patient who is awake, alert, rn and in no acute distress. MS/ Extremity: Pulses equal, no cyanosis. Neurovascular intact. Mild painful range of motion with rotation and elevation of the left shoulder. No bony tenderness. No discoloration Vital Signs: 14:26 BP 155 / 97; Pulse 84; Resp 18; Temp 98.4; Pulse Ox 100% ; Weight 81.65 kg; Height 5 ap3 ft. 3 in. ; Pain 8/10; 14:26 Body Mass Index 31.89 (81.65 kg, 160.02 cm) ap3 14:26 Pain Scale: Adult ap3 MDM: 14:01 Medical Screening Exam initiated rn 14:35 ED course: . rn 15:07 Differential diagnosis: tendonitis. Data reviewed: vital signs, nurses notes, and as a rn result, I will discharge patient. Counseling: I had a detailed discussion with the patient and/or guardian regarding the historical points, exam findings, and any diagnostic results supporting the discharge/admit diagnosis, radiology results, the need for outpatient follow up, to return to the emergency department if symptoms worsen or persist or if there are any questions or concerns that arise at home. Special discussion: I discussed with the patient/guardian in detail that at this point there is no indication for admission to the hospital. It is understood, however, that if the symptoms persist or worsen the patient needs to return immediately for re-evaluation. Administered Medications: 15:06 Drug: Dexamethasone IM 10 mg IM once Route: IM; Site: left deltoid; hb 15:31 Follow up: Response: No adverse reaction hb Disposition Summary: 06/17/24 15:11 Discharge Ordered Notes: Location: Home rn Problem: new rn Symptoms: have improved rn Condition: Stable rn Diagnosis - Strain of muscle(s) and tendon(s) of the rotator cuff of left shoulder rn Followup: rn - With: Private Physician - When: As needed - Reason: Recheck today's complaints, Re-evaluation by your physician Discharge Instructions: - Discharge Summary Sheet rn - Rotator Cuff Tendinitis rn Forms: - Medication Reconciliation Form rn - Antibiotic rn internal medicine - Prescription Opioid Use rn - Patient Portal Instructions rn - Leadership Thank You Letter rn - Work release form hb - Family Work Release Prescriptions: - Medrol (Raymundo) 4 mg Oral Tablets, Dose Pack - take 1 tablet ORAL route as directed - follow package instructions; 1 packet; rn Refills: 0, Product Selection Permitted Signatures: Geovanni Reid MD MD rn Baxter, Heather, RN RN Inocencia Hernández RN RN ap3
[2024-06-17 16:01] VITALS: BP 155/97; TEMP 98.4; O2SAT 100
== END 2024-06-17 15:38 | disposition home or self-care (01) ==
LOC: ER 13:55
DX: S46.012A Strain of muscle(s) and tendon(s) of the rotator cuff of left shoulder, initial encounter (principal)
CPT/HCPCS: 96372; 99284; J1100

== ENCOUNTER 2024-06-18 07:04 | Emergency (ER) | payer OTHER ==
--- OUTSIDE RECORDS SUMMARY | 2024-06-18 07:07 | XMS REPORT | Continuity of Care Document ---
Author Name Unknown Address [address] [facility] [address] [place] [address] [facility] thconnect Address [address] [facility] 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 Name Role Phone RAIN SANCHEZ JR Primary Care Physician Ross newsome UNKNOWN, ATTENDING Attending Clinician Unavailab rajesh [email or web address]_S Attending Clinician Unavaila ble AKINMARCELINA CASTRO Attending Clinician Unavail able Vani Hilton MD Attending Clinician + VANI HILTON Attending Clinician Unav ailALEX Darby Attending Clinician Unavaila ble Alex Connors Attending Clinician + [phone] QUETA BLAIR Attending Clinician Unavailab le Lab, Ang-Rmchp Attending Clinician Unavailable Queta Clemente Attending Clinician [phone] AkinMarcelina Espinoza Attending Clinician + Doctor Unassigned, Ruma Attending Clinician U navailable Pgy3 Attending Clinician Unavailable Hortencia Ludwig MD Attending Clinician [phone] HORTENCIA LUDWIG Attending Clinician Unavailable Eoldia Aguillon RN Attending Clinician Unavailable TODD PUGA Attending Clinician Unavailable Only, Ang Db Test Attending Clinician Todd Vivar MD Attending Clinician MERCEDEZ LIU Attending Clinician Angelique choe [email or web address]_S Admitting Clinician Unavaila hayes HOPEJUDIEERVANI GROVE Admitting Clinician Unav ailable AKINSIMARCELINA CALLE C Admitting Clinician Unavail able Payers Payer Name Policy Type Policy Number Effective Date Expirati on Date Source [facility] [id number] 2016 00:00:00 [facility] [id number] 2021 00:00:00 Problems Condition Name Condition Details [...] evidence of hyperplas ia or malignanc y [facility] Elevated blood pressure reading without diagnosis of hypertensi on Elevated blood pressure reading without diagnosis of hypertensi on Disease Active 05-02 00:00: 00 [facility] Other general counseling and advice for contracept shahla management Other general counseling and advice for contracept shahla management Disease Active 05-03 00:00: 00 [facility] Over weight Over weight Disease Active 05-03 00:00: 00 [facility] Vaginal discharge Vaginal discharge Disease Active 05-03 00:00: 00 [facility] Encounter for screening mammogram for breast cancer Encounter for screening mammogram for breast cancer Disease Active 10-08 00:00: 00 [facility] Urinary tract infection, site unspecifie d Urinary tract infection, site unspecifie d Disease Active 10-08 00:00: 00 [facility] Tobacco use disorder Tobacco use disorder Disease Active 10-08 00:00: 00 [facility] Depression , unspecifie d depression type Depression , unspecifie d depression type Disease Active 10-08 00:00: 00 [facility] History of tubal ligation History of tubal ligation Disease Active 10-08 00:00: 00 [facility] Allergies, Adverse Reactions, Alerts Allergy Name Allergy Type Status Severity Reaction(s) Onset Date Inactive Date Treating Clinician Comments Source ZIPRASID ONE HCL DRUG INGREDI Active Hallucinates 2011-04 00:00: 00 [facility] Ziprasid one Hcl Propensi ty to adverse reaction s Active Hallucinatio ns 2011-04 00:00: 00 [facility] Sulfa (Sulfona mide Antibiot ics) Propensi ty to adverse reaction s Active Itching 12-25 00:00: 00 [facility] SULFA (SULFONA MIDE ANTIBIOT ICS) Drug Class Active ITCHING 12-25 00:00: 00 [facility] Social History Social Habit Start Date Stop Date Quantity Comments [facility] of [facility] use Cigarette Smoker [facility] Exposure to SARS-CoV-2 (event) 2022-07-13 00:00:00 2022-07-23 21:06:00 Not sure [facility] Alcohol intake 2021-05-28 00:00:00 2021-05-28 00:00:00 Current non-drinker of alcohol (finding) [facility] History of Social function 2021-05-02 00:00:00 2021-05-02 00:00:00 [facility] Tobacco use and exposure 2020-05-03 00:00:00 2020-05-03 00:00:00 Smokeless tobacco non-user [facility] Tobacco Comment 2016-10-08 00:00:00 2016-10-08 00:00:00 smokes 2 x per day [facility] Sex Assigned At 1975 00:00:00 1975 00:00:00 [facility] Smoking Status Start Date Stop Date Source Ex-smoker 2020-05-03 00:00:00 2020-05-03 00:00:00 [facility] Medications Ordered Medication Name Filled Medication Name Start Date Stop Date Current Medication? Ordering Clinician Indication Dosage Frequency Signature (SIG) Comments Components Source traMADoL (ULTRAM) tablet 50 mg 01-12 21:00: 00 01-12 20:51 :00 No 50mg 50 mg, Oral, ONCE NOW, 1 dose, On 01/12/23 at 1600, Routine [facility] ketorolac (TORADOL) injection 30 mg 01-12 20:15: 00 01-12 19:48 :00 No 30mg 30 mg, Intramuscu lar, ONCE, 1 dose, On Fri01/12/23 at 1515, Routine [facility] traMADoL 50 mg tablet 01-12 00:00: 00 01-20 04:59 :00 No [id number] 50mg Take 1 tablet by mouth every 6 (six) hours as needed for Pain (scale 4-6) for up to 7 days. Indication s: acute pain [facility] 105-iron-fo lic ac-dha 30 mg iron- 1.4 mg-300 mg Cmpk 10-23 13:52: 46 Yes Take by mouth. [facility] 105-iron-fo lic ac-dha 30 mg iron- 1.4 mg-300 mg Cmpk 10-23 13:52: 46 Yes Take by mouth. [facility] Nitrofurant oin&Nit. Macrocryst (MACROBID) 100 mg capsule 10-23 00:00: 00 Yes [id number] 100mg Take 1 capsule by mouth 2 (two) times daily. [facility] norethindro ne 0.35 mg tablet 05-28 00:00: 00 Yes [id number] 1{tbl} Take 1 tablet by mouth daily. [facility] ferrous sulfate 325 mg (65 mg iron) tablet 05-28 00:00: 00 Yes [id number] 325mg Take 1 tablet by mouth 2 (two) times daily. [facility] Norethindro ne Acet-Ethiny l Est (LOESTRIN 1.5, 21,) 1.5-30 mg-mcg per tablet 06-27 00:00: 00 Yes [id number] 1{tbl} Take 1 tablet by mouth daily. [facility] Immunizations Ordered Immunization Name Filled Immunization Name Date Status Comments Source Td 2010-06-03 00:00:00 Completed [facility] Td 2010-06-03 00:00:00 Completed [facility] TD, NOS 2010-06-03 00:00:00 Completed [facility] TD, NOS Unknown Completed [facility] TD, NOS Unknown Completed [facility] Vital Signs Vital Name Observation Time Observation Value Comments S ource Systolic blood pressure 2023-01-12 19:16:13 134 mm[Hg] [facility] Diastolic blood pressure 2023-01-12 19:16:13 108 mm[Hg] [facility] Heart rate 2023-01-12 19:16:13 100 /min [facility] Body temperature 2023-01-12 19:16:13 36.78 Lois [facility] Respiratory rate 2023-01-12 19:16:13 16 /min [facility] Body height 2023-01-12 19:15:00 160 cm [facility] Body weight 2023-01-12 19:15:00 84.55 kg [facility] BMI 2023-01-12 19:15:00 33.02 kg/m2 [facility] Oxygen saturation in Arterial blood by Pulse oximetry 2023-01-12 19:15:00 100 /min [facility] Systolic blood pressure 2022-07-24 02:06:00 159 mm[Hg] [facility] Diastolic blood pressure 2022-07-24 02:06:00 106 mm[Hg] [facility] Heart rate 2022-07-24 02:06:00 90 /min [facility] Body temperature 2022-07-24 02:06:00 36.61 Lois [facility] Respiratory rate 2022-07-24 02:06:00 16 /min [facility] Body height 2022-07-24 02:06:00 160 cm [facility] Body weight 2022-07-24 02:06:00 81.647 kg [facility] BMI 2022-07-24 02:06:00 31.89 kg/m2 [facility] Oxygen saturation in Arterial blood by Pulse oximetry 2022-07-24 02:06:00 100 /min [facility] Systolic blood pressure 2021-12-04 20:55:00 135 mm[Hg] [facility] Diastolic blood pressure 2021-12-04 20:55:00 92 mm[Hg] [facility] Heart rate 2021-12-04 20:55:00 86 /min [facility] Body temperature 2021-12-04 20:54:00 36.56 Lois [facility] Respiratory rate 2021-12-04 20:54:00 20 /min [facility] Body height 2021-12-04 20:54:00 160 cm [facility] Body weight 2021-12-04 20:54:00 84.567 kg [facility] BMI 2021-12-04 20:54:00 33.03 kg/m2 [facility] Procedures Procedure Date / Time Performed Performing Clinicia n Source ASSIGNMENT OF BENEFITS 2023-01-12 20:25:03 Docto r Unassigned, Ruma [facility] POCT TEST 2023-01-12 19:47:00 Vani Talbert [facility] CONSENT/REFUSAL FOR DIAGNOSIS AND TREATMENT 2023-01-12 19:06:32 Doctor Unassigned, Ruma [facility] NOTICE OF PRIVACY PRACTICES 2022-07-24 01:52:33 Doctor Unassigned, Ruma [facility] CONSENT/REFUSAL FOR DIAGNOSIS AND TREATMENT 2022-07-24 01:52:12 Doctor Unassigned, Ruma [facility] POCT URINALYSIS W/O SPECIFIC GRAVITY 2021-12-04 20:55:00 Marcelina Willson [facility] Encounters Start Date/Time End Date/Time Encounter Type Admission Type Attending Clinicians Care Facility Care Department Encounter ID Source 2023-09-16 20:20:00 2023-09-16 20:20:00 Outpatient R UNKNOWN, ATTENDING [facility] [id number] [facility] 2023-02-16 00:00:00 2023-02-16 00:00:00 Outpatient [email or web address] [email or web address]_S [facility] [id number] [facility] 2023-01-15 13:30:00 2023-01-15 13:30:00 Outpatient R MARCELINA WILLSON [facility] [id number] [facility] 2023-01-12 14:17:00 2023-01-12 16:11:00 Emergency AuVani hager [facility] [id number] 350.1.13.10 4.2.7.2.686 [id number] [facility] 2023-01-12 14:17:00 2023-01-12 16:11:00 Emergency X VANI HILTON [facility] ERT [id number] [facility] 2022-07-23 21:09:00 2022-07-23 22:34:00 [facility] [id number] 2022-07-23 21:09:00 2022-07-23 22:34:00 [facility] [id number] 350.1.13.10 4.2.7.2.686 [id number] [facility] 2022-04-22 13:15:00 2022-04-22 13:15:00 Outpatient R MARCELINA WILLSON [facility] [id number] [facility] 2021-12-05 13:30:00 2021-12-05 13:30:00 Outpatient R [facility] [id number] [facility] 2021-12-05 13:30:00 2021-12-05 13:30:00 Outpatient R QUETA BLAIR [facility] [id number] [facility] 2021-12-05 13:30:00 2021-12-05 13:30:00 Veneer Taper Visit Lab, [facility] Queta Blair [facility] SW[facility]BOARD [facility] & CHILD [facility] 1.2840.114 350.1.13.10 4.2.7.2.686 [id number] [facility] 2021-12-04 15:30:00 2021-12-04 16:27:05 Outpatient R QUETA BLAIR [facility] [id number] [facility] 2021-12-04 15:30:00 2021-12-04 16:27:05 Office Visit Queta Blair [facility] SW[facility]BOARD WIRER [facility] CHILD [facility] 1.0.114 350.1.13.10 4.2.7.2.686 [id number] [facility] 2021-12-04 15:30:00 2021-12-04 16:27:05 Outpatient R QUETA BLAIR [facility] [id number] [facility] 2021-10-23 13:30:00 2021-10-23 14:13:37 Outpatient R MARCELINA WILLSON [facility] [id number] [facility] 2021-10-23 13:30:00 2021-10-23 14:13:37 Office Visit Marcelina Willson [facility] CHILD [facility] 1.0.114 350.1.13.10 4.2.7.2.686 [id number] [facility] 2021-10-19 00:00:00 2021-10-19 00:00:00 Telephone Marcelina Willson [facility] CHILD [facility] 1.2840.114 350.1.13.10 4.2.7.2.686 [id number] [facility] 2021-10-01 15:00:00 2021-10-01 15:00:00 Outpatient R MARCELINA WILLSON [facility] [id number] [facility] 2021-10-01 15:00:00 2021-10-01 15:00:00 Outpatient R MARCELINA WILLSON [facility] [id number] [facility] 2021-10-01 15:00:00 2021-10-01 15:00:00 Outpatient R MARCELINA WILLSON [facility] [id number] [facility] 2021-10-01 15:00:00 2021-10-01 15:00:00 Outpatient R MARCELINA WILLSON [facility] [id number] [facility] 2021-08-10 00:00:00 2021-08-10 00:00:00 Telephone Marcelina Willson [facility] SWITCHBOARD WIRER [facility] & CHILD [facility] ..840.114 350.1.13.10 4.2.7.2.686 [id number] [facility] 2021-08-08 14:45:00 2021-08-08 15:54:48 [id number] 2021-08-08 14:45:00 2021-08-08 15:54:48 Office Visit Marcelina Willson [facility] CHILD [facility] ..840.114 350.1.13.10 4.2.7.2.686 [id number] [facility] 2021-06-26 06:35:31 2021-06-26 23:59:00 [facility] [id number] [facility] 2021-06-26 06:35:31 2021-06-26 23:59:00 Hospital Encounter Marcelina Willson [facility] 1.840.114 350.1.13.10 4.2.7.2.686 [id number] [facility] 2021-06-26 00:00:00 2021-06-26 00:00:00 Outpatient Arelis MARCELINA WILLSON [facility] [id number] [facility] 2021-06-26 00:00:00 2021-06-26 00:00:00 Outpatient R MARCELINA WILLSON [facility] [id number] [facility] 2021-06-05 00:00:00 2021-06-05 00:00:00 Orders Only Doctor Unassigned, Ruma [facility] 1.840.114 350.1.13.10 4.2.7.2.686 [id number] [facility] 2021-06-04 00:00:00 2021-06-04 00:00:00 Patient Secure Msg Marcelina Willson [facility] SWITCHBOARD WIRER [facility] 1.840.114 350.1.13.10 4.2.7.2.686 [id number] [facility] 2021-05-28 14:30:00 2021-05-28 16:27:34 Office Visit Pgy3 Hortencia Ludwig [facility] 1.840.114 350.1.13.10 4.2.7.2.686 [id number] [facility] 2021-05-28 14:30:00 2021-05-28 16:27:34 Outpatient R HORTENCIA LUDWIG [facility] [id number] [facility] 2021-05-28 14:30:00 2021-05-28 16:27:34 Outpatient R HORTENCIA LUDWIG [facility] [id number] [facility] 2021-05-28 14:30:00 2021-05-28 16:27:34 Outpatient R HORTENCIA LUDWIG [facility] [id number] [facility] 2021-05-28 14:30:00 2021-05-28 14:30:00 Outpatient R HORTENCIA LUDWIG [facility] [id number] [facility] 2021-05-16 00:00:00 2021-05-16 00:00:00 Telephone Elodia Aguillon [facility] 1..840.114 350.1.13.10 4.2.7.2.686 [id number] [facility] 2021-05-15 20:15:00 2021-05-15 20:30:38 Outpatient R TODD PUGA [facility] [id number] [facility] 2021-05-15 20:15:00 2021-05-15 20:30:38 Outpatient R ROJELIO [facility] [id number] [facility] 2021-05-15 20:15:00 2021-05-15 20:30:00 Laboratory Only Only, Ang Db Test Rojelio [facility] 1..840.114 350.1.13.10 4.2.7.2.686 [id number] [facility] 2021-05-02 14:15:00 2021-05-02 15:54:46 Outpatient R MARCELINA WILLSON [facility] [id number] [facility] 2021-05-02 14:15:00 2021-05-02 15:54:46 Office Visit Marcelina Willson [facility] SWITCHBOARD WIRER [facility] 1..840.114 350.1.13.10 4.2.7.2.686 [id number] [facility] 2021-05-02 14:15:00 2021-05-02 14:15:00 Outpatient R MARCELINA WILLSON [facility] [id number] [facility] 2021-05-02 00:00:00 2021-05-02 00:00:00 Orders Only Doctor Unassigned, Ruma [facility] 1.2.840.114 350.1.13.10 4.2.7.2.686 [id number] [facility] 2020-11-21 14:15:00 2020-11-21 14:15:00 Outpatient R KATELYN WILLSONOLA [facility] [id number] [facility] 2020-11-21 14:15:00 2020-11-21 14:15:00 Outpatient R KATELYN WILLSONOLA [facility] [id number] [facility] 2020-09-27 13:15:00 2020-09-27 13:15:00 Outpatient R KATELYN WILLSONOLA [facility] [id number] [facility] 2020-09-27 13:15:00 2020-09-27 13:15:00 Outpatient R KATELYN WILLSONOLA [facility] [id number] [facility] 2020-06-27 16:00:00 2020-06-27 16:00:00 Outpatient MERCEDEZ QUESADA [facility] [id number] [facility] 2020-06-21 00:00:00 2020-06-21 00:00:00 Outpatient R KATELYN WILLSONOLA [facility] [id number] [facility] 2020-06-21 00:00:00 2020-06-21 00:00:00 Outpatient R MARCELINA WILLSON [facility] [id number] [facility] 2020-05-03 14:30:00 2020-05-03 14:30:00 Outpatient R KATELYN WILLSONOLA [facility] [id number] [facility] Results Test Description Test Time Test Comments Results Result Co mments Source CULTURE, URINE 2023-12-25 13:29:37 SPECIMEN NUMBER: [id number] CULTURE, URINE SPECIMEN NUMBER: [id number] SOURCE: URINE REPORT STATUS: FINAL ISOLATE NUMBER [...] UROGENITAL AYAH PRESENT NO COMMON PATHOGENS POCT [id number] 19:47:00* Test Item Value Reference Range Interpretation Comme nts POCT PREG (test code = 1605) Negative On board controls acceptable with C Line (test code = 3574) Yes POCT PREG LOT # (test code = 3575) [id number] POCT PREG TEST DATE ( test code = 3576) 06-18-2024 Lab Interpretation (test cod e = 32372-0) Normal [facility] URINALYSIS W/O SPECIFIC [id number] 20:55:00* Test Item Value Reference Range Interpretation [...] = 3257) . Negative - Negati ve [facility] URINALYSIS W/O SPECIFIC [id number] 20:55:00* Test Item Value Reference Range Interpretation [...] = 3257) . Negative - Negati ve [facility]
[2024-06-18] MEDS ORDERED: ONDANSETRON 4 MG/2 ML VIAL ONE (07:18)
[2024-06-18] MEDS ORDERED: NA CHLORIDE 0.9% 1,000 ML ONE (07:18)
[2024-06-18 07:54] LABS: Absolute Monocytes 0.5 K/uL (0.1-1.3); Absolute Neutrophil 11.1 K/uL (1.8-8.0); Basophils % 0.2 % (0-1.3); Hematocrit 44.2 % (36.0-45.0); Hemoglobin 14.7 g/dL (12.0-15.0); Lymphocytes % 7.8 % (15.3-44.8); MCH 30.4 pg (27.0-35.0); MCHC 33.4 g/dL (32.0-36.0); MPV 7.8 fL (7.6-11.3); Monocytes % 3.9 % (3.3-12.3); Neutrophils % 88.1 % (41.7-73.7); Platelets 273 thou/uL (152-406); RBC Red Blood Cell Count 4.86 M/uL (3.86-4.86); Red Cell Distribution Width 12.7 % (12.1-15.2)
[2024-06-18 07:57] LABS: PT Prothrombin Time 12.1 SECONDS (10.0-13.0); Protime INR 1.06
--- NOTE | 2024-06-18 07:57 | RAD REPORT ---
Procedure: Chest Single View HISTORY: Shortness of breath COMPARISON: 2022 FINDINGS: The lungs appear clear of acute infiltrate. No significant pleural effusion noted. The heart is normal size. IMPRESSION: No acute abnormality is displayed.
[2024-06-18 08:07] LABS: ALT/SGPT 25 U/L (13-56); AST/SGOT 18 U/L (15-37); Albumin 3.6 g/dL (3.4-5.0); Albumin/Globulin Ratio 0.8 (1.1-1.8); Alkaline Phosphatase 42 U/L (45-117); Anion Gap 8.7 mEq/L (5.0-15.0); BUN Blood Urea Nitrogen 8 mg/dL (7-18); Bicarbonate 29 mEq/L (21-32); Bilirubin Total 0.3 mg/dL (0.2-1.0); Globulin 4.4 g/dL (2.3-3.5); Glomerular Filtration Rate 107 ml/min (=/>90); Glucose Level 146 mg/dL (74-106); Magnesium 2.5 mg/dL (1.6-2.4); NT PRO-BNP 100 pg/mL (<125); Potassium 3.7 mEq/L (3.5-5.1); Sodium Level 138 mEq/L (136-145); Troponin High Sensitivity 5.9 pg/mL (<58.9)
[2024-06-18 08:10] LABS: Bilirubin Direct < 0.2 mg/dL (0-0.2); Bilirubin Indirect, Calculated 0.1 mg/dL (0.2-0.8)
--- NOTE | 2024-06-18 08:33 | EDPHYS ---
Physician Documentation [facility] Name: Mitali Law Age: 48 yrs Sex: Female : 1975 Arrival Date: 06/18/2024 Time: 07:04 Bed 4 Private MD: ED Physician Kevan Carter HPI: 06/18 07:24 This 48 yrs old Female presents to ER via Unassigned with complaints of lili Dizziness, SWEATS, Nausea. 07:24 The patient presents with dizziness, feeling faint, generalized weakness, lili lightheadedness. Onset: The symptoms/episode began/occurred just prior to arrival, this morning. Context: occurred at home. Modifying factors: The symptoms are alleviated by nothing, the symptoms are aggravated by nothing. Associated signs and symptoms: The patient has no apparent associated signs or symptoms. Severity of symptoms: At their worst the symptoms were moderate in the emergency department the symptoms are unchanged. Patient's baseline: Neuro: alert and fully oriented. The patient has not experienced similar symptoms in the past. 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 - Infectious Disease History:: Denies. - Social history:: Smoking status: Patient denies any tobacco usage or history of. - Family history:: not pertinent. ROS: 07:24 Constitutional: Negative for fever, chills, and weight loss, Eyes: Negative for injury, lili pain, redness, and discharge, ENT: Negative for injury, pain, and discharge, Neck: Negative for injury, pain, and swelling, Cardiovascular: Negative for chest pain, palpitations, and edema, Respiratory: Negative for shortness of breath, cough, wheezing, and pleuritic chest pain, Back: Negative for injury and pain, : Negative for injury, bleeding, discharge, and swelling, MS/Extremity: Negative for injury and deformity, Skin: Negative for injury, rash, and discoloration, Psych: Negative for depression, anxiety, suicide ideation, homicidal ideation, and hallucinations, Allergy/Immunology: Negative for hives, rash, and allergies, Endocrine: Negative for neck swelling, polydipsia, polyuria, polyphagia, and marked weight changes, 07:24 Abdomen/GI: Positive for nausea and vomiting, 07:24 Neuro: Positive for dizziness, weakness, generalized, Exam: 07:24 Constitutional: This is a well developed, well nourished patient who is awake, alert, lili and in no acute distress. Head/Face: Normocephalic, atraumatic. Eyes: Pupils equal round and reactive to light, extra-ocular motions intact. Lids and lashes normal. Conjunctiva and sclera are non-icteric and not injected. Cornea within normal limits. Periorbital areas with no swelling, redness, or edema. ENT: Nares patent. No nasal discharge, no septal abnormalities noted. Tympanic membranes are normal and external auditory canals are clear. Oropharynx with no redness, swelling, or masses, exudates, or evidence of obstruction, uvula midline. Mucous membranes moist. Neck: Trachea midline, no thyromegaly or masses palpated, and no cervical lymphadenopathy. Supple, full range of motion without nuchal rigidity, or vertebral point tenderness. No Meningismus. Chest/axilla: Normal chest wall appearance and motion. Nontender with no deformity. No lesions are appreciated. Cardiovascular: Regular rate and rhythm with a normal S1 and S2. No gallops, murmurs, or rubs. Normal PMI, no JVD. No pulse deficits. Respiratory: Lungs have equal breath sounds bilaterally, clear to auscultation and percussion. No rales, rhonchi or wheezes noted. No increased work of breathing, no retractions or nasal flaring. Abdomen/GI: Soft, non-tender, with normal bowel sounds. No distension or tympany. No guarding or rebound. No evidence of tenderness throughout. Back: No spinal tenderness. No costovertebral tenderness. Full range of motion. Skin: Warm, dry with normal turgor. Normal color with no rashes, no lesions, and no evidence of cellulitis. MS/ Extremity: Pulses equal, no cyanosis. Neurovascular intact. Full, normal range of motion., bilateral aka Neuro: Awake and alert, GCS 15, oriented to person, place, time, and situation. Cranial nerves II-XII grossly intact. Motor strength 5/5 in all extremities. Sensory grossly intact. Cerebellar exam normal. Normal gait. Psych: Awake, alert, with orientation to person, place and time. Behavior, mood, and affect are within normal limits. 07:24 ECG was reviewed by the Attending Physician. 07:24 Musculoskeletal/extremity: DVT Exam: No signs of deep vein thrombosis. no pain, no swelling, no tenderness, negative Homans' sign noted on exam, no appreciated bluish discoloration, no erythema, no increased warmth, Vital Signs: 07:10 Weight 81.65 kg; Height 5 ft. 4 in. ; Pain 0/10; jl7 07:33 BP 124 / 82; Pulse 68; Resp 16; Pulse Ox 95% on R/A; Pain 0/10; ll1 08:53 BP 114 / 79; Pulse 76; Resp 16; Pulse Ox 97% ; ll1 07:10 Body Mass Index 30.90 (81.65 kg, 162.56 cm) jl7 07:10 Pain Scale: Adult jl7 07:33 Pain Scale: Adult ll1 NIH Stroke Scale Scores: 08:32 NIHSS Score: 0 lili MDM: 07:10 Medical Screening Exam initiated lili 07:27 Differential diagnosis: cardiac arrhythmia, generalized weakness, hypovolemia, lili idiopathic dizziness, near-syncope, syncope, TIA, vertigo. Data reviewed: vital signs, nurses notes, lab test result(s), EKG, radiologic studies, plain films. Consideration of Admission/Observation Escalation of care including admission/observation considered. I considered the following discharge prescriptions or medication management in the emergency department Medications were administered in the Emergency Department. See MAR. Independent interpretation of the following test(s) in the Emergency Department EKG: See my EKG interpretation above. Test considered but Not performed: CT: no ct head. Historians other than the Patient: pt well informed. Care significantly affected by the following chronic conditions: dm , hpv, norco addiction. Counseling: I had a detailed discussion with the patient and/or guardian regarding the historical points, exam findings, and any diagnostic results supporting the discharge/admit diagnosis, lab results, radiology results, the need for outpatient follow up, for definitive care, a family practitioner. 06/18 07:11 Order name: Basic Metabolic Panel; Complete Time: 08:32 [facility] 06/18 07:11 Order name: CBC with Diff 06/18 07:11 Order name: LFT's; Complete Time: 08:32 [facility] 06/18 07:11 Order name: Magnesium; Complete Time: 08:32 [facility] 06/18 07:11 Order name: NT PRO-BNP; Complete Time: 08:32 [facility] 06/18 07:11 Order name: PT-INR; Complete Time: 08:32 [facility] 06/18 07:11 Order name: Troponin HS; Complete Time: 08:32 [facility] 06/18 07:11 Order name: XRAY Chest (1 view); Complete Time: 08:32 [facility] 06/18 07:11 Order name: Cardiac monitoring; Complete Time: 07:31 [facility] 06/18 07:11 Order name: EKG - Nurse/Tech; Complete Time: 07: [facility] 06/18 07:11 Order name: IV Saline Lock; Complete Time: 07:12 [facility] 06/18 07:11 Order name: Labs collected and sent; Complete Time: 07:12 [facility] 06/18 07:11 Order name: O2 Per Protocol; Complete Time: 07:12 [facility] 06/18 07:11 Order name: O2 Sat Monitoring; Complete Time: 07:12 [facility] EC:24 Rate is 69 beats/min. Rhythm is regular. QRS Arion is Normal. VA interval is normal. QRS lili interval is normal. QT interval is normal. No Q waves. T waves are Normal. No ST changes noted. Clinical impression: NSR w/ Non-specific ST/T Changes and No evidence of ischemia. Interpreted by me. Reviewed by me. Administered Medications: 07:31 Drug: NS 0.9% IV 1000 ml IV at 1000 ml once; to be given as a bolus over 60 minutes ll1 Route: IV; Rate: 1000 ml; Site: right antecubital; 08:52 Follow up: Response: No adverse reaction; IV Status: Completed infusion; IV Intake: ll1 500ml 07:31 Drug: Ondansetron IVP 4 mg IVP once; over 2 minutes Route: IVP; Site: right antecubital;ll1 08:52 Follow up: Response: No adverse reaction; Nausea is decreased ll1 Disposition Summary: 06/18/24 08:33 Discharge Ordered Notes: Location: Home lili Problem: new lili Symptoms: have improved lili Condition: Stable lili Diagnosis - Dizziness and giddiness lili - Nausea lili - Hyperglycemia, unspecified lili Followup: lili - With: Private Physician - When: 2 - 3 days - Reason: Recheck today's complaints, Continuance of care, Re-evaluation by your physician Discharge Instructions: - Discharge Summary Sheet lili - Dizziness lili - Hyperglycemia lili - Nausea and Vomiting, Adult lili - Nausea, Adult lili - Nausea and Vomiting, Adult, [id number] lili Forms: - Medication Reconciliation Form lili - Antibiotic Education lili - Prescription Opioid Use lili - Patient Portal Instructions lili - Leadership Thank You Letter lili - Family Work Release jl7 - Work release form ll1 Prescriptions: - ondansetron 8 mg Oral Tablet,disintegrating - take 1 tablet ORAL route every 6-8 hours for 5 days; 20 tablet; Refills: 0, [facility] Product Selection Permitted - Meclizine 25 mg Oral Tablet - take 1 tablet ORAL route every 8 hours As needed; 30 tablet; Refills: 0, [facility] Product Selection Permitted NIH Stroke Scale - NIH Stroke Score Date: 06/18/2024 Time: 08:32 Total Score = 0 10. Dysarthria (speech clarity - read or repeat words) - 0(Normal) 11. Extinction and Inattention (visual/tactile/auditory/spatial/personal) - 0(No abnormality) 1a. Level of Consciousness (LOC) - 0(Alert) 1b. Level of Consciousness (LOC) (Month \T\ Age) - 0(Both) 1c. LOC Commands (Open \T\ Closes Eyes/Side Trimmer) - 0(Both) 2. Best Gaze (Lateral Gaze Paresis) - 0(Normal) 3. Visual Field Loss - 0(No visual loss) 4. Facial Palsy - 0(Normal) 5a. Left Arm: Motor (10-second hold) - 0(No drift) 5b. Right Arm: Motor (10-second hold) - 0(No drift) 6a. Left Leg: Motor (5-second hold - always test supine) - 0(No drift) 6b. Right Leg: Motor (5-second hold - always test supine) - 0(No drift) 7. Limb Ataxia (finger/nose \T\ heel/roberts - test with eyes open) - 0(Absent) 8. Sensory Loss (pinprick arms/legs/face) - 0(Normal) 9. Best Language: Aphasia (description/naming/reading) - 0(No aphasia) Initials: [facility] Signatures: Dispatcher [employer] EDMS Kevan Carter MD MD cha Hall, Patricia, RN RN ph Sophia Hudson RN RN jl7 Jose Baird RN RN ll1 Corrections: (The following items were deleted from the chart) 07:11 07:11 Chest Single View+[email or web address] ordered. EDMS EDMS
--- NOTE | 2024-06-18 08:33 | ER ---
Nurse's Notes [facility] Name: Mitali Law Age: 48 yrs Sex: Female : 1975 Arrival Date: 06/18/2024 Time: 07:04 Bed 4 Private MD: Diagnosis: Dizziness and giddiness;Nausea;Hyperglycemia, unspecified Presentation: 06/18 07:10 Chief complaint: Patient states: Got up at 0530 and felt severe nausea, diaphoretic and jl7 spouse reports she got pale. Denies chest pain, all symptoms resolved at this time. Coronavirus screen: At this time, the client does not indicate any symptoms associated with coronavirus-19. Ebola Screen: No symptoms or risks identified at this time. Initial Sepsis Screen: Does the patient meet any 2 criteria? No. Patient's initial sepsis screen is negative. Does the patient have a suspected source of infection? No. Patient's initial sepsis screen is negative. Risk Assessment: Do you want to hurt yourself or someone else? Patient reports no desire to harm self or others. Onset of symptoms was June 18, 2024 at 05:30. 07:10 Method Of Arrival: Ambulatory [facility] 07:10 Acuity: JAIR 2 jl7 Triage Assessment: 07:10 General: Appears in no apparent distress. uncomfortable, Behavior is calm, cooperative, jl7 appropriate for age. Pain: Denies pain. Cardiovascular: Patient's skin is warm and dry. Respiratory: Airway is patent Respiratory effort is even, unlabored, Respiratory pattern is regular, symmetrical. GI: Reports nausea. Derm: Skin is pink, warm \T\ dry. 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 - Infectious Disease History:: Denies. - Social history:: Smoking status: Patient denies any tobacco usage or history of. - Family history:: not pertinent. Screenin:34 [facility] ED Fall Risk Assessment (Adult) History of falling in the last 3 months, ll1 including since admission No falls in past 3 months (0 pts) Confusion or Disorientation No (0 pts) Intoxicated or Sedated No (0 pts) Impaired Gait No (0 pts) Mobility Assist Device Used No (0 pt) Altered Elimination No (0 pt) Score/Fall Risk Level 0 - 2 = Low Risk Maintained a safe environment, Hourly rounding (assess needs \T\ fall precautionary measures) done. Abuse screen: Denies threats or abuse. Nutritional screening: No deficits noted. Tuberculosis screening: No symptoms or risk factors identified. Assessment: 07:15 General: Appears in no apparent distress. Behavior is calm, cooperative, appropriate ll1 for age. Pain: Denies pain. Neuro: Reports a syncopal episode episode of near syncope. GI: Reports nausea. 08:53 Reassessment: No changes from previously documented assessment. Patient and/or family ll1 updated on plan of care and expected duration. Pain level reassessed. Patient is alert, oriented x 3, equal unlabored respirations, skin warm/dry/pink. Vital Signs: 07:10 Weight 81.65 kg; Height 5 ft. 4 in. ; Pain 0/10; jl7 07:33 BP 124 / 82; Pulse 68; Resp 16; Pulse Ox 95% on R/A; Pain 0/10; ll1 08:53 BP 114 / 79; Pulse 76; Resp 16; Pulse Ox 97% ; ll1 07:10 Body Mass Index 30.90 (81.65 kg, 162.56 cm) jl7 07:10 Pain Scale: Adult jl7 07:33 Pain Scale: Adult ll1 NIH Stroke Scale Scores: 08:32 NIHSS Score: 0 [facility] ED Course: 07:07 Patient arrived in ED. jj6 07:10 Kevan Carter MD is Attending Physician. [facility] 07:10 Arm band placed on right wrist. jl7 07:12 Jose Baird, GIORGIO is Primary Nurse. 1 07:15 Initial lab(s) drawn, by me, sent to lab. Inserted saline lock: 22 gauge in right ll1 antecubital area, using aseptic technique. Blood collected. Flushed with 10 mL NS. 07:28 Triage completed. jl7 07:34 Patient has correct armband on for positive identification. Bed in low position. 1 Provided Education on: ER procedures and process. Client placed on continuous cardiac and pulse oximetry monitoring. NIBP monitoring applied. 07:48 XRAY Chest (1 view) In Process Unspecified. EDMS 08:53 No provider procedures requiring assistance completed. IV discontinued, intact, ll1 bleeding controlled, No redness/swelling at site. Pressure dressing applied. Administered Medications: 07:31 Drug: NS 0.9% IV 1000 ml IV at 1000 ml once; to be given as a bolus over 60 minutes ll1 Route: IV; Rate: 1000 ml; Site: right antecubital; 08:52 Follow up: Response: No adverse reaction; IV Status: Completed infusion; IV Intake: ll1 500ml 07:31 Drug: Ondansetron IVP 4 mg IVP once; over 2 minutes Route: IVP; Site: right antecubital;ll1 08:52 Follow up: Response: No adverse reaction; Nausea is decreased ll1 Medication: 07:34 VIS not applicable for this client. ll1 Intake: 08:52 IV: 500ml; Total: 500ml. ll1 Outcome: 08:33 Discharge ordered by . lili 08:53 Discharged to home ambulatory, ll1 08:53 Condition: stable 08:53 Discharge instructions given to patient, Instructed on discharge instructions, follow up and referral plans. medication usage, Demonstrated understanding of instructions, follow-up care, medications, Prescriptions given X 2, 08:53 Patient left the ED. ll1 NIH Stroke Scale - NIH Stroke Score Date: 06/18/2024 Time: 08:32 Total Score = 0 10. Dysarthria (speech clarity - read or repeat words) - 0(Normal) 11. Extinction and Inattention (visual/tactile/auditory/spatial/personal) - 0(No abnormality) 1a. Level of Consciousness (LOC) - 0(Alert) 1b. Level of Consciousness (LOC) (Month \T\ Age) - 0(Both) 1c. LOC Commands (Open \T\ Closes Eyes/Finish Patcher) - 0(Both) 2. Best Gaze (Lateral Gaze Paresis) - 0(Normal) 3. Visual Field Loss - 0(No visual loss) 4. Facial Palsy - 0(Normal) 5a. Left Arm: Motor (10-second hold) - 0(No drift) 5b. Right Arm: Motor (10-second hold) - 0(No drift) 6a. Left Leg: Motor (5-second hold - always test supine) - 0(No drift) 6b. Right Leg: Motor (5-second hold - always test supine) - 0(No drift) 7. Limb Ataxia (finger/nose \T\ heel/roberts - test with eyes open) - 0(Absent) 8. Sensory Loss (pinprick arms/legs/face) - 0(Normal) 9. Best Language: Aphasia (description/naming/reading) - 0(No aphasia) Initials: [facility] Signatures: Dispatcher [employer] EDKevan Cortes MD MD cha Hall, Patricia, RN RN ph Sophia Hudson RN RN jl7 Jose Baird, RN RN ll1 Jackelin Kingston6
[2024-06-18 08:59] VITALS: BP 124/82; O2SAT 95
[2024-06-18 09:09] LABS: Blood Morphology Comment NOT SEEN (NOT SEEN); Platelet Estimate ADEQ; White Blood Cell Scan OK (OK)
--- NOTE | 2024-06-21 12:14 | EKG ---
Test Date: 2024-06-18 Test Time: 07:20:55 Fundraising Assistant: IRVERA MEASUREMENT RESULTS: Intervals: Rate: 69 IL: 138 QRSD: 86 QT: 444 QTc: 475 [place]: P: 54 IL: 138 QRS: 38 T: 34 INTERPRETIVE STATEMENTS: Normal sinus rhythm Normal ECG Compared to ECG 05/30/2022 14:04:11 No significant changes Electronically Signed On 06-21-24 12:07:21 TRAY SETTER by Davion Lema
== END 2024-06-18 08:53 | disposition home or self-care (01) ==
LOC: ER 07:04
DX: R73.9 Hyperglycemia, unspecified (principal); R11.0 Nausea; R53.1 Weakness; I10 Essential (primary) hypertension
CPT/HCPCS: 96361; 93005; 85025; 80048; 36415; 83735; 85610; 80076; 84484; 83880; 71045; 96374; 99284; J2405; J7030